=== PATIENT | male | born 1950 | race Caucasian/White ===

== ENCOUNTER → 2016-06-22 | Outpatient (CLI) | payer MEDICARE, MEDICAID ==
[~2016-06-22] MED LIST: ACET325T51 PO; ASPI81TA2 PO; ATOR40TA64 PO; BENZ-16 PO; BISM262O28 PO; CALC500T7 PO; DEXT15DR5 BOTH EYES; DIPH25CA84 PO; FAMO-137 PO; FERR325C PO; FLUT9.9S EA NOSTRIL; GLIP5TAB11 PO; GLUC1CAP25 PO; GLUC1KIT INJ; HYDR-4246 PO; INSU100I21 SQ; LABE100T PO; LIDO5JEL4 TOP; LORA10TA62 PO; LOSA25TA34 PO; MAG355OR19 PO; MAGN400O4 PO; METF500T4 PO; MICO10PO TOP; MULT-933 PO; NITR0.4T39 SL; OMEP20CA10 PO; ONDA-55 PO; OXYB5TAB PO; SERT50TA PO; TAMS0.4C47 PO; [UNRECOGNIZED DRUG - CODE] PO
== END ==
LOC: NWCC 10:19 → EDSTATUS 10:30
PROVIDERS: ATTEND Surgery
DX: T81.31XA Disruption of external operation (surgical) wound, not elsewhere classified, initial encounter (principal); Y83.8 Other surgical procedures as the cause of abnormal reaction of the patient, or of later complication, without mention of misadventure at the time of the procedure; F32.9 Major depressive disorder, single episode, unspecified
CPT/HCPCS: A6209; G0463

== ENCOUNTER → 2016-07-06 | Outpatient (CLI) | payer MEDICARE, MEDICAID | LOC: NWCC 09:50 → EDSTATUS 10:00 | PROVIDERS: ATTEND Surgery | DX: T81.31XA Disruption of external operation (surgical) wound, not elsewhere classified, initial encounter (principal); Y83.8 Other surgical procedures as the cause of abnormal reaction of the patient, or of later complication, without mention of misadventure at the time of the procedure; Z85.048 Personal history of other malignant neoplasm of rectum, rectosigmoid junction, and anus | CPT/HCPCS: A6209; A6210; G0463 ==

== ENCOUNTER → 2016-08-17 | Outpatient (CLI) | payer MEDICARE, MEDICAID ==
[~2016-08-17] MED LIST changes: +SALINE FLUSH 10ml SYRINGE IVF ONE
== END ==
LOC: NWCC 10:52 → EDSTATUS 11:00
PROVIDERS: ATTEND Surgery
DX: T81.31XA Disruption of external operation (surgical) wound, not elsewhere classified, initial encounter (principal); Y83.8 Other surgical procedures as the cause of abnormal reaction of the patient, or of later complication, without mention of misadventure at the time of the procedure; Z92.3 Personal history of irradiation; Z85.048 Personal history of other malignant neoplasm of rectum, rectosigmoid junction, and anus
CPT/HCPCS: A6209; G0463

== ENCOUNTER → 2016-09-14 | Outpatient (CLI) | payer MEDICARE | LOC: NWCC 11:05 | PROVIDERS: ATTEND Surgery | DX: T81.31XA Disruption of external operation (surgical) wound, not elsewhere classified, initial encounter (principal); Y83.8 Other surgical procedures as the cause of abnormal reaction of the patient, or of later complication, without mention of misadventure at the time of the procedure; Z85.048 Personal history of other malignant neoplasm of rectum, rectosigmoid junction, and anus; Z92.3 Personal history of irradiation ==

== ENCOUNTER → 2016-09-28 | Outpatient (CLI) | payer MEDICARE ==
[~2016-09-28] MED LIST changes: -SALINE FLUSH 10ml SYRINGE IVF ONE
== END ==
LOC: NWCC 10:28
PROVIDERS: ATTEND Surgery
DX: T81.31XA Disruption of external operation (surgical) wound, not elsewhere classified, initial encounter (principal); Y83.8 Other surgical procedures as the cause of abnormal reaction of the patient, or of later complication, without mention of misadventure at the time of the procedure; C20 Malignant neoplasm of rectum

== ENCOUNTER → 2016-10-12 | Outpatient (CLI) | payer MEDICARE | LOC: NWCC 13:29 | PROVIDERS: ATTEND Surgery | DX: T81.31XA Disruption of external operation (surgical) wound, not elsewhere classified, initial encounter (principal); Y83.8 Other surgical procedures as the cause of abnormal reaction of the patient, or of later complication, without mention of misadventure at the time of the procedure; Z85.048 Personal history of other malignant neoplasm of rectum, rectosigmoid junction, and anus ==

== ENCOUNTER 2017-10-01 13:47 | Inpatient (IN) ==
[2017-10-01] MEDS ORDERED: ONDANSETRON 4 MG/2 ML INJECTION IVP ONE (14:12)
[2017-10-01] MEDS ORDERED: MORPHINE SULFATE 4mg INJECTION IVP ONE (14:12)
[2017-10-01] MEDS ORDERED: NS 1,000 ML IV ONE (14:12)
--- NOTE | 2017-10-01 14:14 | Emergency Department Report ---
Abdominal Pain HPI - General Chief Complaint: Nausea/Vomiting/Diarrhea Stated Complaint: emesis on/off since 630am Time Seen by Provider: 10/01/17 14:12 Source: patient, EMS Mode of arrival: EMS Limitations: no limitations - History of Present Illness HPI narrative: Patient is a 67-year-old male, history of rectal cancer with colostomy. Patient presents to the ER for evaluation of emesis, abdominal distention. Patient was discharged yesterday after 3 days in [facility] for dehydration and possible UTI. [facility] was [facility], since arriving back in the [facility] patient's had multiple rounds of emesis is now having abdominal distention. Patient does have a colostomy which is only placing a clear liquid and mucus. Patient having what is described as feculent emesis at the [facility] so patient was referred to [facility] for further evaluation and treatment. On arrival patient is alert and oriented complaining of 9/10 abdominal pain. - Related Data Home Medications Medication Instructions Recorded Confirmed Atorvastatin Calcium 40 mg PO HS #0 09/18/15 10/01/17 Fluticasone Propionate [Flonase 2 spray EA NOSTRIL BID #0 09/18/15 10/01/17 Allergy Relief] Famotidine [Pepcid] 20 mg PO BID #0 03/24/16 10/01/17 Ferrous Sulfate [Iron] 325 mg PO BIDWM #0 03/24/16 10/01/17 Glucagon,Human Recombinant 1 mg INJ PRN PRN #0 03/24/16 10/01/17 [Glucagon Emergency Kit] Aspirin 81 mg PO DAILY 10/01/17 10/01/17 Benzonatate [Benzonatate] 100 mg PO TID PRN 10/01/17 10/01/17 CALCIUM CARBONATE Chewable [Tums] 1,000 mg PO Q4H PRN 10/01/17 10/01/17 Cetirizine [Zyrtec] 10 mg PO DAILY 10/01/17 10/01/17 Ciprofloxacin HCl [Cipro] 500 mg PO BID 10/01/17 10/01/17 Doxycycline Monohydrate 100 mg PO BID 10/01/17 10/01/17 Eucerin Cream [Eucerin] 1 applicatio TP DAILY 10/01/17 10/01/17 Hydrocodone/APAP 5/325 [[place] 1 tab PO Q5H PRN 10/01/17 10/01/17 5/325] Insulin Detemir [Levemir] 8 unit SQ HS 10/01/17 10/01/17 Mag Hydrox/Aluminum Hyd/Simeth 30 ml PO PRN PRN 10/01/17 10/01/17 [Alum-Mag Hydroxide-Simeth Liq] Magnesium 500 mg PO QID 10/01/17 10/01/17 Metformin [Glucophage] 500 mg PO BIDWM 10/01/17 10/01/17 Metoprolol Tartrate [Lopressor] 25 mg PO BIDWM 10/01/17 10/01/17 Mirtazapine [Remeron] 45 mg PO HS 10/01/17 10/01/17 Multivitamin [One Daily] 1 tab PO DAILY 10/01/17 10/01/17 Nystatin [Nystop] 1 applicatio TOP BID 10/01/17 10/01/17 Ondansetron HCl [Zofran] 4 mg PO Q6H PRN 10/01/17 10/01/17 Oxybutynin XL [Ditropan Xl] 5 mg PO HS 10/01/17 10/01/17 Sertraline [Zoloft] 100 mg PO DAILY 10/01/17 10/01/17 Tamsulosin [Flomax] 0.4 mg PO DAILY 10/01/17 10/01/17 Triamcinolone 0.1% Cream 15 G 1 applicatio TOP BID 10/01/17 10/01/17 [Kenalog] guaiFENesin [Mucinex] 600 mg PO BID PRN 10/01/17 10/01/17 Allergies Allergy/AdvReac Type Severity Reaction Status Date / Time Iodinated Contrast- Oral and Allergy Unknown Verified 10/01/17 14:00 IV Dye Review of Systems Constitutional: Reports: weakness. Denies: fever, chills ENT: Denies: ear pain, throat pain, dental pain Cardiovascular: Denies: chest pain, palpitations, dyspnea on exertion Respiratory: Denies: cough, dyspnea, wheezes Gastrointestinal: Reports: abdominal pain, nausea, vomiting Genitourinary: Denies: dysuria, frequency Neurological: Denies: headache, weakness Psychiatric: Denies: anxiety Endocrine: Denies: fatigue Hematological/Lymphatic: Denies: easy bleeding Allergic/Immunologic: Denies: facial swelling Physical Exam - General General appearance: alert - Neck Neck exam: Present: full ROM, trachea midline - Chest Chest inspection: Present: symmetric chest wall rise. Absent: tenderness - Respiratory Respiratory exam: Present: normal lung sounds bilaterally. Absent: respiratory distress, wheezes, stridor - Cardiovascular Cardiovascular exam: Present: regular rate, normal rhythm, normal heart sounds - Abdominal Exam Abdominal exam: Present: soft, distention, diminished bowel sounds, hypoactive bowel sounds. Absent: tenderness - Extremities Exam Extremities exam: Present: full ROM, tenderness - Back Exam Back exam: Present: full ROM, tenderness - Skin Skin exam: Present: warm, dry - Neurological Exam Neurological exam: Present: alert, oriented X3 - Psychiatric Psychiatric exam: Present: normal affect, normal mood Course Vital Signs Temperature 97.7 F 10/01/17 13:55 Pulse Rate 108 H 10/01/17 13:55 Respiratory Rate 28 H 10/01/17 13:55 Blood Pressure 111/83 10/01/17 13:55 Pulse Oximetry 94 10/01/17 13:55 Temperature 97.7 F 10/01/17 13:55 Pulse Rate 108 H 10/01/17 13:55 Respiratory Rate 28 H 10/01/17 13:55 Blood Pressure 111/83 10/01/17 13:55 Pulse Oximetry 94 10/01/17 13:55 Abdominal Pain - MDM Narrative Medical decision making narrative: Discuss case with Dr. Tate headache, he is aware of the results of the CT scan finding. NG tube, admit to hospitalist and he will follow-up he will also check in with Dr. Stanford. Discussed case with Dr. Wills, who is also her of the CT scan read she will admit consult in Dr. Tate at this time - Differential Diagnosis Differential diagnosis: Likely: small bowel obstruction - Medical Records Attestation: I reviewed the patient's medical records. - Lab Data Attestation: I reviewed the patient's lab results. Result diagrams: 10/01/17 14:31 10/01/17 14:31 - Radiology Data Attestation: I reviewed the patient's radiology results. Small bowel obstruction with transition point at the sacral region, does have seroma at the sacral region does not appear to be a perforation per [facility] radiologist Abdominal series: NG tube in good position Disposition Clinical Impression: Small bowel obstruction Disposition: 02 [place] [facility] [place] Condition: Stable Prescriptions: No Action Fluticasone Propionate [Flonase Allergy Relief] 2 spray EA NOSTRIL BID #0 Famotidine [Pepcid] 20 mg PO BID #0 Ferrous Sulfate [Iron] 325 mg PO BIDWM #0 Glucagon,Human Recombinant [Glucagon Emergency Kit] 1 mg INJ PRN PRN #0 PRN Reason: Prn Orders guaiFENesin [Mucinex] 600 mg PO BID PRN PRN Reason: Congestion Triamcinolone 0.1% Cream 15 G [Kenalog] 1 applicatio TOP BID Benzonatate [Benzonatate] 100 mg PO TID PRN PRN Reason: Cough Magnesium 500 mg PO QID Multivitamin [One Daily] 1 tab PO DAILY Oxybutynin XL [Ditropan Xl] 5 mg PO HS Mirtazapine [Remeron] 45 mg PO HS Hydrocodone/APAP 5/325 [[place] 5/325] 1 tab PO Q5H PRN PRN Reason: Pain Tamsulosin [Flomax] 0.4 mg PO DAILY Sertraline [Zoloft] 100 mg PO DAILY Nystatin [Nystop] 1 applicatio TOP BID Metoprolol Tartrate [Lopressor] 25 mg PO BIDWM Metformin [Glucophage] 500 mg PO BIDWM Ciprofloxacin HCl [Cipro] 500 mg PO BID Cetirizine [Zyrtec] 10 mg PO DAILY Aspirin 81 mg PO DAILY Ondansetron HCl [Zofran] 4 mg PO Q6H PRN PRN Reason: Nausea CALCIUM CARBONATE Chewable [Tums] 1,000 mg PO Q4H PRN PRN Reason: Indigestion Eucerin Cream [Eucerin] 1 applicatio TP DAILY Atorvastatin Calcium 40 mg PO HS #0 Mag Hydrox/Aluminum Hyd/Simeth [Alum-Mag Hydroxide-Simeth Liq] 30 ml PO PRN PRN PRN Reason: Indigestion Insulin Detemir [Levemir] 8 unit SQ HS Doxycycline Monohydrate 100 mg PO BID Referrals: Baudilio Rosa MD [Primary Care Provider] - Time of Disposition: 14:58 - Seen By: physician
[2017-10-01] MEDS: SALINE FLUSH 10ml SYRINGE IVF PRN (14:32)
--- NOTE | 2017-10-01 16:42 | History & Physical Report ---
History of Present Illness Date: 10/01/17 Chief complaint: N/v, abdominal pain HPI: Patient is a 67-year-old who presented to the emergency room from [facility] in [place] for vomiting fecal-like material and abdominal pain which started last evening. He has rectal cancer and has had robotic-assisted A/ P resection and colostomy by Dr. Stanford in 2015. Patient states he was in the hospital in [place] September 28- and was dismissed yesterday morning feeling okay. Abdominal pain and nausea and vomiting didn't start until later in the day. In talking with patient's PCP, patient was seen initially in the ER on September 26 with dizziness and other vague symptoms. UA was positive for UTI, although patient didn't have any urinary symptoms. He was started on Cipro. He returned to the clinic on the still not feeling well and complaining of vague symptoms including dizziness; he was thus hospitalized for IV fluids and further observation. He did complete the full course of Cipro for possible UTI. There were no significant events during his hospital stay. CT scan in the ER revealed high-grade small bowel obstruction. NG tube was placed with drainage of 850 cc's gastric fluid. By the time I saw the patient in his room on the surgical unit, he was completely pain-free and had no complaints. Dr. Tate was notified and agrees to consult. Review of Systems All systems PM: 10-point ROS was reviewed, no additional remarkable complaints except (nausea and vomiting and abdominal pain prior to arrival to ER. 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 Mother - living. Parkinsons. Family History: As Above - Social History Smoking status: Never smoker Substance use type: does not use Alcohol intake frequency: does not drink Housing: jail Current occupational status: disabled Social history: PCP- Baudilio Rosa Oncologist - Dr. Dueñas Surgeon - Dr. Stanford Medications Home Medications Medication Instructions Recorded Confirmed Type Atorvastatin Calcium 40 mg PO HS #0 09/18/15 10/01/17 History Fluticasone Propionate [Flonase 2 spray EA NOSTRIL BID #0 09/18/15 10/01/17 History Allergy Relief] Famotidine [Pepcid] 20 mg PO BID #0 03/24/16 10/01/17 History Ferrous Sulfate [Iron] 325 mg PO BIDWM #0 03/24/16 10/01/17 History Glucagon,Human Recombinant 1 mg INJ PRN PRN #0 03/24/16 10/01/17 History [Glucagon Emergency Kit] Aspirin 81 mg PO DAILY 10/01/17 10/01/17 History Benzonatate [Benzonatate] 100 mg PO TID PRN 10/01/17 10/01/17 History CALCIUM CARBONATE Chewable [Tums] 1,000 mg PO Q4H PRN 10/01/17 10/01/17 History Cetirizine [Zyrtec] 10 mg PO DAILY 10/01/17 10/01/17 History Ciprofloxacin HCl [Cipro] 500 mg PO BID 10/01/17 10/01/17 History Doxycycline Monohydrate 100 mg PO BID 10/01/17 10/01/17 History Eucerin Cream [Eucerin] 1 applicatio TP DAILY 10/01/17 10/01/17 History Hydrocodone/APAP 5/325 [[place] 1 tab PO Q5H PRN 10/01/17 10/01/17 History 5/325] Insulin Detemir [Levemir] 8 unit SQ HS 10/01/17 10/01/17 History Mag Hydrox/Aluminum Hyd/Simeth 30 ml PO PRN PRN 10/01/17 10/01/17 History [Alum-Mag Hydroxide-Simeth Liq] Magnesium 500 mg PO QID 10/01/17 10/01/17 History Metformin [Glucophage] 500 mg PO BIDWM 10/01/17 10/01/17 History Metoprolol Tartrate [Lopressor] 25 mg PO BIDWM 10/01/17 10/01/17 History Mirtazapine [Remeron] 45 mg PO HS 10/01/17 10/01/17 History Multivitamin [One Daily] 1 tab PO DAILY 10/01/17 10/01/17 History Nystatin [Nystop] 1 applicatio TOP BID 10/01/17 10/01/17 History Ondansetron HCl [Zofran] 4 mg PO Q6H PRN 10/01/17 10/01/17 History Oxybutynin XL [Ditropan Xl] 5 mg PO HS 10/01/17 10/01/17 History Sertraline [Zoloft] 100 mg PO DAILY 10/01/17 10/01/17 History Tamsulosin [Flomax] 0.4 mg PO DAILY 10/01/17 10/01/17 History Triamcinolone 0.1% Cream 15 G 1 applicatio TOP BID 10/01/17 10/01/17 History [Kenalog] guaiFENesin [Mucinex] 600 mg PO BID PRN 10/01/17 10/01/17 History Allergies Allergy/AdvReac Type Severity Reaction Status Date / Time Iodinated Contrast- Oral and Allergy Unknown Verified 10/01/17 14:00 IV Dye Exam Vital Signs: Temperature 97.3 F 10/01/17 16:11 Pulse Rate 101 H 10/01/17 16:11 Respiratory Rate 20 10/01/17 16:11 Blood Pressure 135/76 10/01/17 16:11 Pulse Oximetry 96 10/01/17 16:11 Height/Weight/BMI: Height 1.88 m Weight 91.2 kg Body Mass Index 25.8 - Constitutional Present: no acute distress, well nourished, well developed - Routine HEENT Exam Head: Present: normocephalic, atraumatic Eye: Present: EOMI, PERRL ENT: Present: mucous membranes moist, oropharynx clear - Routine Neck Exam Present: supple. Absent: lymphadenopathy, thyromegaly - Routine Respiratory Exam Present: CTA bilaterally. Absent: wheezes - Routine Cardiovascular Exam Present: RRR, no murmur - Routine Abdominal Exam Present: soft, distended. Absent: tenderness Comments: "tinkling" BS's heard in all 4 quadrants - least active in the RLQ - Routine Extremities Exam Present: no edema, normal capillary refill Comments: chronic skin changes from venous stasis - Routine Skin Exam Present: dry, warm - Routine Neurological Exam Present: alert, oriented X3, CN II-XII intact - Routine Psychiatric Exam Present: normal affect, cooperative Results - Labs CBC & Chem 7: 10/01/17 14:31 10/01/17 14:31 - Imaging and Cardiology CT scan - abdomen Additional comments: High-grade small bowel obstruction with transition level distal of the distal ileum possibly secondary to scarring at the presacral level. Fluid at the presacral level could represent seroma. Abdominal series: NG tube in good position Assessment and Plan (1) Small bowel obstruction Current visit: Yes Status: Acute Assessment and Plan: Assessment High-grade small bowel obstruction with transition level distal of the distal ileum possibly secondary to scarring at the presacral level. Dehydration-RLL 10/01/17 Recent hospitalization in [place] for vague symptoms - hypotension/dizziness and possible UTI (completed tx with Cipro) Rectal cancer (Dr. 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 UA pending. SCD's for DVT prophylaxis Code staus - full code Care to return to Dr. Rosa on dismissal. DVT Prophylaxis: SCD's GI Prophylaxis: Protonix Resuscitation Status: Full Code - Physician Narrative Physician: Trisha Wills MD Narrative: Date: 10/01/17 Time: 1804 I have independently evaluated and examined this patient. I reviewed the chart, the patient's history, and the GEOSPATIAL ENGINEER/PA's documented findings as above. We discussed and formulated the assessment and plan as above with additions as below: Mr. Avila was shortly after arriving on the surgical unit area he reportedly feels significantly better following placement of NG tube and that his abdomen is less distended. He confirmed that abdominal pain, nausea, vomiting, and abdominal distention developed acutely overnight in conjunction with decreased stool per the ostomy. His only complaint at time of my evaluation was dry mouth and request that he could get a sip or 2 of water. In additions to problems listed above the patient has a known history of peripheral vascular disease with occlusion of both anterior tibial arteries and high-grade stenosis of both posterior tibial arteries having previously undergone angioplasty of the left posterior tibial in November [address] Upton. He had a Port-A-Cath in the past which was removed in September 2015; and has a Chiari I malformation bypassed MRI. He is followed in the wound care clinic for chronic sacral wound following surgical dehiscence following AP resection for rectal carcinoma. On examination the patient is alert and cooperative. He appeared comfortable at time of my examination; respirations were nonlabored and the patient was able to take deep breaths without difficulty. Anterior breath sounds are clear. Abdomen is moderately distended, bowel sounds are absent and tympanic but the abdomen is soft. Sacral decubitus ulcer is approximately 3-4 cm in size and approximately 3 cm deep with granulation tissue present, there is no evidence of bowel loop in the ulcer. CT of the abdomen/pelvis reviewed by myself demonstrating multiple dilated loops of small bowel with air-fluid levels. Radiology reports transition point in the presacral area. High-grade small bowel obstruction; possibly due to prior radiation therapy. Discussed with Dr. Jamison who in turn discussed plans with Dr. Tate/Dr. Stanford. Conservative management with bowel rest, NG suction, IV fluids anticipated. Surgery may be needed if spontaneous resolution does not occur. Magnesium 1.2 today-replace IV and reassess in a.m. Hospital Course Summary Disclaimer: The visit summary below is not to be considered part of the above Progress Note. Hospital Course: 10/01/17 - Hospital admission Admit, observation for SBO NG tube placed in ER with drainage of 850cc's gastric fluid Morphine IV PRN pain, Zofran IV PRN nausea NPO, pantoprazole IV daily; replace magnesium Tele (had a brief run of PAT during recent hosp stay) Hold all home medications Surgical consult placed SCD's for DVT prophylaxis Code staus - full code Care to return to Dr. Rosa on dismissal.
[2017-10-01] MEDS ORDERED: ONDANSETRON 4 MG/2 ML INJECTION IVP PRN (17:04)
[2017-10-01] MEDS ORDERED: MORPHINE SULFATE 4mg INJECTION IVP PRN (17:04)
[2017-10-01] MEDS: PANTOPRAZOLE 40 MG INJECTION IVP SCH (17:54)
[2017-10-01] MEDS: NS 1,000 ML IV SCH (17:55)
[2017-10-01] MEDS: MAGNESIUM SULFATE 1gm PREMIX 1 GM/100 ML BAG IV SCH ×2 (19:21→20:30)
[2017-10-01] MEDS: MIRTAZAPINE 45 MG TABLET PO SCH (21:35)
[2017-10-01] MEDS: ATORVASTATIN 40 MG TABLET PO SCH (21:35)
[2017-10-02] MEDS: NS 1,000 ML IV SCH ×2 (03:48→10:10)
[2017-10-02] MEDS: FLUTICASONE NASAL SPRAY 50mcg EA NOSTRIL SCH ×3 (06:29→20:33)
[2017-10-02] MEDS: PANTOPRAZOLE 40 MG INJECTION IVP SCH (08:33)
--- NOTE | 2017-10-02 09:09 | XRay Report ---
Indication: NG tube placement PROCEDURE: XR abdomen 1V: Encounter: Initial Comparison: CT abdomen and pelvis from the same date Findings: Left basilar atelectasis. Nasogastric tube in place with tip projecting over the fundus of the stomach. Dilated colon is again seen in the upper abdomen. Impression: Findings as above. .
--- NOTE | 2017-10-02 09:14 | CT Scan Report ---
Indication: colon cancer, probable SBO, colostomy, IV contrast ALLERGY PROCEDURE: CT abdomen pelvis wo con: Encounter: Initial Comparison: None Technique: Axial CT images were performed through the abdomen and pelvis without intravenous contrast. Coronal and sagittal two-dimensional reformats. Automated Exposure Control and Iterative Reconstruction dose reducing techniques were utilized. Findings: Atelectasis and trace effusions and the lung bases. The unenhanced contours of the liver are grossly unremarkable. The spleen size is normal. Fatty replaced pancreas. The adrenal glands are normal. Small nonobstructing bilateral renal stones. Stones in the region of the left ureterovesicular junction on axial image #93 with additional stones in the posterior aspect of the bladder. Postsurgical changes in the rectal region with presacral soft tissue induration and thickening. Left lower quadrant end colostomy with a small peristomal hernia containing fluid. Markedly dilated small bowel seen throughout the abdomen with a transition to decompressed fecalized distal ileum seen in the central pelvis. Small bowel loops are dilated up to 7.5 cm in diameter. No free air appreciated. Stomach is distended with fluid and gas. Colon is normal caliber. Impression: 1. Severe distal small bowel obstruction with transition point in the pelvis. This could be due to adhesions from prior therapy for the patient's prior colon cancer. Surgical consultation is recommended. 2. Nephrolithiasis with possible nonobstructing right UVJ stones and bladder stones. 3. Trace pleural effusions. There is a preliminary report by [facility]. .
--- NOTE | 2017-10-02 09:31 | Progress Note ---
- Date 10/02/17 Subjective: Toan is seen today in follow up. He denies any concerns. States no N/V. He did have some sharp epigastric pain- it appears NGT has come dislodged and appears to have been backed out. (Suspect tip in esophagus). D/W JONATHAN Lees- she will check placement and advance if indicated. He denies any focal abdominal pain. Some small amounts of liquid stool in ostomy. He had questions about PO intake- we discussed today. No other acute c/ o reported. Chart is reviewed for collateral information. Objective Vital signs: Temperature 97.5 F 10/02/17 07:00 Pulse Rate 81 10/02/17 07:00 Respiratory Rate 14 10/02/17 07:00 Blood Pressure 111/67 10/02/17 07:00 Pulse Oximetry 93 10/02/17 07:00 Rhythm: Normal Sinus Rhythm Height/Weight/BMI: Height 1.88 m Weight 91.4 kg Body Mass Index 25.8 - Constitutional Present: no acute distress, average body habitus, cooperative - Routine HEENT Exam Head: Present: normocephalic, atraumatic Eye: Present: EOMI, PERRL ENT: Present: mucous membranes dry Comments: NGT right nare. Suspect dislodged. - Routine Respiratory Exam Present: decreased breath sounds, CTA bilaterally. Absent: rales, rhonchi, crackles - Routine Cardiovascular Exam Present: RRR, S1, S2, no murmur - Routine Abdominal Exam Present: soft (Abdomen is soft and diffusely non-tender), non tender, distended , ostomy (Small amount of liquid output.). Absent: normoactive bowel sounds ( Hypoactive BS x 4 quadrants), rebound, guarding, firm, rigid - Routine Extremities Exam Present: no edema, non tender - Routine Musculoskeletal Exam Musculoskeletal: Present: no clubbing or cyanosis, moving extremities well - Routine Skin Exam Present: intact, dry, warm - Routine Neurological Exam Present: alert, moving all extremities - Routine Psychiatric Exam Present: normal affect, cooperative Results - Labs CBC & Chem 7: 10/02/17 04:07 10/02/17 04:07 Assessment and Plan (1) Small bowel obstruction Current visit: Yes Status: Acute Assessment and Plan: Assessment High-grade small bowel obstruction with transition level distal of the distal ileum possibly secondary to scarring at the presacral level. Dehydration-RLL 10/01/17 Recent hospitalization in [place] for vague symptoms - hypotension/dizziness and possible UTI (completed tx with Cipro) Rectal cancer (Dr. 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 RN to confirm placement. Assess KUB once NGT advanced. Surgery consulted- high grade bowel obstruction. Continue IVF, will add potassium as it is trending down. Magnesium replaced, normalized. BG is controlled with insulin held. Recent PAT- on metoprolol succinate for rate control. Continue to monitor blood counts closely- neutropenia, mild anemia. Continue supportive care. Follow labs closely. Pain is minimal. DVT Prophylaxis: SCD's GI Prophylaxis: Protonix Resuscitation Status: Full Code - Physician Narrative Physician: Trisha Wills MD Narrative: Date: 10/02/17 Time: 1230 I have independently evaluated and examined this patient. I reviewed the chart, the patient's history, and the [employer]KER/PA's documented findings as above. We discussed and formulated the assessment and plan as above with additions as below: Toan was frustrated reporting that he can't have any liquids tomorrow. It's unclear who told him this and nursing was unsure where he got this impression is they've not been advised that he scheduled for surgery at this point. Beyond that he reports his abdomen feels better and that he's had no further nausea or vomiting; he denied dyspnea or generalized pain. Nursing reported no concerns and the patient was afebrile overnight. NAD, alert, abdomen is soft with decreased distention relative to yesterday, no tenderness, no bowel sounds appreciated Flat affect KUB reviewed-multiple dilated loops small bowel consistent with SBO; NG in stomach. Continue supportive care, Dr. Tate to see for Dr. Stanford today. If nonoperative management elected for several days will need to consider PICC line and TPN. Hospital Course Summary Disclaimer: The visit summary below is not to be considered part of the above Progress Note. Hospital Course: 10/01/17 - Hospital admission Admit, observation for SBO NG tube placed in ER with drainage of 850cc's gastric fluid Morphine IV PRN pain, Zofran IV PRN nausea NPO, pantoprazole IV daily; replace magnesium Tele (had a brief run of PAT during recent hosp stay) Hold all home medications Surgical consult placed SCD's for DVT prophylaxis Code staus - full code Care to return to Dr. Rosa on dismissal. Plan 10/02/17- Continue NGT. RN to confirm placement. Assess KUB once NGT advanced. Surgery consulted- high grade bowel obstruction. Continue IVF, will add potassium as it is trending down. Magnesium replaced, normalized. BG is controlled with insulin held. Recent PAT- on metoprolol succinate for rate control. Continue to monitor blood counts closely- neutropenia, mild anemia. Continue supportive care. Follow labs closely. Pain is minimal.
[2017-10-02] MEDS ORDERED: POTASSIUM CHLORIDE INJ 20 MEQ in NS 1,000 ML IV SCH (09:39)
--- NOTE | 2017-10-02 10:04 | XRay Report ---
Indication: SBO, NGT placement PROCEDURE: XR KUB: Encounter: Initial Comparison: October 01, 2017 Findings: Nasogastric tube appears stable in position. Severe small bowel dilatation is redemonstrated with small bowel loops measuring up to 7.5 cm in diameter. Scattered colonic gas is noted. Impression: Stable appearance of the nasogastric tube with continued evidence of a high-grade or complete small bowel obstruction. .
[2017-10-02] MEDS ORDERED: NS with KCL 20 mEq 1,000 ML IV SCH (10:15)
[2017-10-02] MEDS ORDERED: ACETAMINOPHEN 650 MG SUPPOSITORY PR PRN (14:30)
[2017-10-02] MEDS ORDERED: FALL RISK - PHARMACY CONSULT MC ONE (15:11)
--- NOTE | 2017-10-02 16:38 | General Surgery Consult Note ---
Consult date: 10/02/17 Attending Physician: Trisha Wills MD Reason for consult: other (sbo) [facility] Medical History (Last Updated 10/02/17 @ 16:44 by Dutch Tate MD) Chiari I malformation (Chronic) PVD (peripheral vascular disease) (Chronic) angioplasty L-post tibial artery 12/02; occlusion of B-ant tibial arteries Depression (Chronic) Mental retardation (Chronic) GERD (gastroesophageal reflux disease) (Chronic) Rectal cancer (Chronic) Oncologist: Dr. Dueñas S/P Neoadjuvant chemoradiation and robotic APR 01/12/2016 with positive resection margins. Hyperlipidemia (Chronic) Essential (primary) hypertension (Chronic) Diabetes mellitus type 2 with complications (Chronic) Surgical History: * Pilonidal cyst. * Left inguinal hernia repair - 1998. * Colonoscopy - 08/12/2015 with biopsy of rectal mass. * Port-a-cath placement - 09/19/2015. * Robotic assisted abdominoperineal resection with end colostomy formation - 01/12/[address] Stanford. * Delayed primary closure of perineal wound and application of wound VAC - 04/18/[address] Stanford. Family History: Family History (Last Updated 10/01/17 @ 17:06 by Trisha Wills MD) Father Stroke Mother Parkinson disease Family History Updates: Father - of stroke at age 59. Mother - living. Parkinsons. - Social History Smoking status: Never smoker Substance use type: does not use Alcohol intake frequency: does not drink Housing: long-term Current occupational status: disabled Medications Home Medications Medication Instructions Recorded Confirmed Type Atorvastatin Calcium 40 mg PO HS #0 09/18/15 10/01/17 History Fluticasone Propionate [Flonase 2 spray EA NOSTRIL BID #0 09/18/15 10/01/17 History Allergy Relief] Famotidine [Pepcid] 20 mg PO BID #0 03/24/16 10/01/17 History Ferrous Sulfate [Iron] 325 mg PO BIDWM #0 03/24/16 10/01/17 History Glucagon,Human Recombinant 1 mg INJ PRN PRN #0 03/24/16 10/01/17 History [Glucagon Emergency Kit] Aspirin 81 mg PO DAILY 10/01/17 10/01/17 History Benzonatate [Benzonatate] 100 mg PO TID PRN 10/01/17 10/01/17 History CALCIUM CARBONATE Chewable [Tums] 1,000 mg PO Q4H PRN 10/01/17 10/01/17 History Cetirizine [Zyrtec] 10 mg PO DAILY 10/01/17 10/01/17 History Ciprofloxacin HCl [Cipro] 500 mg PO BID 10/01/17 10/01/17 History Doxycycline Monohydrate 100 mg PO BID 10/01/17 10/01/17 History Eucerin Cream [Eucerin] 1 applicatio TP DAILY 10/01/17 10/01/17 History Hydrocodone/APAP 5/325 [[place] 1 tab PO Q5H PRN 10/01/17 10/01/17 History 5/325] Insulin Detemir [Levemir] 8 unit SQ HS 10/01/17 10/01/17 History Mag Hydrox/Aluminum Hyd/Simeth 30 ml PO PRN PRN 10/01/17 10/01/17 History [Alum-Mag Hydroxide-Simeth Liq] Magnesium 500 mg PO QID 10/01/17 10/01/17 History Metformin [Glucophage] 500 mg PO BIDWM 10/01/17 10/01/17 History Metoprolol Tartrate [Lopressor] 25 mg PO BIDWM 10/01/17 10/01/17 History Mirtazapine [Remeron] 45 mg PO HS 10/01/17 10/01/17 History Multivitamin [One Daily] 1 tab PO DAILY 10/01/17 10/01/17 History Nystatin [Nystop] 1 applicatio TOP BID 10/01/17 10/01/17 History Ondansetron HCl [Zofran] 4 mg PO Q6H PRN 10/01/17 10/01/17 History Oxybutynin XL [Ditropan Xl] 5 mg PO HS 10/01/17 10/01/17 History Sertraline [Zoloft] 100 mg PO DAILY 10/01/17 10/01/17 History Tamsulosin [Flomax] 0.4 mg PO DAILY 10/01/17 10/01/17 History Triamcinolone 0.1% Cream 15 G 1 applicatio TOP BID 10/01/17 10/01/17 History [Kenalog] guaiFENesin [Mucinex] 600 mg PO BID PRN 10/01/17 10/01/17 History Allergies Allergy/AdvReac Type Severity Reaction Status Date / Time Iodinated Contrast- Oral and Allergy Unknown Verified 10/01/17 14:00 IV Dye Review of Systems 10-point ROS: negative except for HPI and the following: - Gastrointestinal Gastrointestinal: Present: other (decreased ostomy output) - Psychiatric Psychiatric: Present: other (mild mental retardation) - Endocrine Endocrine: Present: diabetes - Vital Signs Last Vital Signs Temp 99.5 F 10/02/17 14:19 Pulse 89 10/02/17 14:19 Resp 16 10/02/17 14:19 BP 104/64 10/02/17 14:19 Pulse Ox 91 10/02/17 14:19 - Laboratory Result Diagrams: 10/02/17 04:07 10/02/17 04:07
[2017-10-02] MEDS: POTASSIUM CHLORIDE INJ 20 MEQ in D5NS 1,000 ML IV SCH (18:25)
[2017-10-02] MEDS: MIRTAZAPINE 45 MG TABLET PO SCH (20:33)
[2017-10-02] MEDS: ATORVASTATIN 40 MG TABLET PO SCH (20:33)
[2017-10-03] MEDS: POTASSIUM CHLORIDE INJ 20 MEQ in D5NS 1,000 ML IV SCH ×3 (03:13→20:34)
--- NOTE | 2017-10-03 08:12 | Consultation ---
DATE OF CONSULTATION 10/02/2017 CONSULTING PHYSICIAN Dutch Tate MD (Covering for Dr. Stanford) REQUESTING PHYSICIAN Dr. Wills REASON FOR CONSULTATION Small bowel obstruction. IMPRESSION 1. High-grade small bowel obstruction with transition point deep within the pelvis. There may be a chronic component to his bowel obstruction given the significant dilatation of the small bowel without significant abdominal pain. He may also have a cause of his bowel obstruction related to local recurrence of his rectal cancer as opposed to simple adhesions. 2. Personal history of rectal cancer status post abdominoperineal resection with positive margins in 2016. 3. Type 2 diabetes mellitus. 4. Chronic buttock wound - followed by Dr. Stanford [facility]. 5. Hypertension. 6. Hyperlipidemia. 7. Neutropenia. RECOMMENDATIONS 1. I did discuss the case with Dr. Stanford given his prior knowledge of the patient. It was felt that the patient was stable for observation through the weekend with NG tube decompression and further evaluation of management options tomorrow. 2. The patient could have TPN via his PICC line. 3. Allow minimal clear liquids with an ounce per hour of fluids. HISTORY OF PRESENT ILLNESS Toan is a 67-year-old male patient of Dr. Stanford who had a robotic abdominoperineal resection on 01/12/2016 for rectal cancer. He had trouble with his perineal wound and delayed closure on 04/18/2016. He has continued to have trouble with a buttock wound and was last seen by Dr. Stanford on 2017 in the [facility]. Toan was hospitalized in [place] from 09/28/2017 through 09/30/2017. He was dismissed on the morning of 09/30/2017 after treatment for a urinary tract infection. He was back at [facility]. That evening he developed sudden onset of abdominal bloating and vomiting. When he did not improve he was taken to the emergency department on 10/01/2017 at [facility]. He was having abdominal pain that he rated 9-10 out of 10 in severity. He was feeling rather bloated. In the emergency department he had a CT scan the abdomen and pelvis performed that showed high-grade small bowel obstruction with an apparent transition point in the presacral region deep within the pelvis. An NG tube was placed and had 850 ml out promptly. He was admitted under the hospitalist service and surgery was consulted. With NG tube decompression and bowel rest the patient says that his abdominal pain has decreased to 1-3 out of 10 in severity. He denies any current abdominal pain and denies nausea and vomiting. He does report feeling hungry and thirsty. He has had some solid ostomy output today. He was having decreased ostomy output prior to admission with his bloating and minimal mucousy output in his colostomy bag. PAST MEDICAL HISTORY, PAST SURGICAL HISTORY, ALLERGIES, MEDICATIONS, SOCIAL HISTORY, FAMILY HISTORY, REVIEW OF SYSTEMS, LABORATORY DATA, VITAL SIGNS: See electronic consultation note. PHYSICAL EXAMINATION GENERAL: The patient is awake and alert. He is in no acute distress. HEENT: Sclerae clear. Extraocular muscles intact. NECK: Supple with a midline trachea. No lymphadenopathy or thyromegaly are noted. HEART: Regular rate and rhythm. LUNGS: Clear to auscultation bilaterally. ABDOMEN: Soft, nontender. There is no significant abdominal distention. No masses, fluid, organomegaly, guarding or rebound are noted. His ostomy has a mixture of liquid and solid stool in his ostomy bag. EXTREMITIES: No clubbing , cyanosis or edema. NEURO: Cranial nerves II-XII are grossly intact. PSYCHIATRIC: Normal mood and affect. SKIN: There is a bandage in the midline of the posterior perineum and buttock region. Bandage was left in position. IMAGING CT scan of the abdomen and pelvis was personally reviewed by me. There does appear to be a transition point in the lower pelvis with some surrounding thickening of the pelvic sidewalls. The small bowel is essentially all dilated up to the dilated stomach at the time of the scan. The colon is fairly well decompressed but does contain stool. MTDD
[2017-10-03] MEDS: FLUTICASONE NASAL SPRAY 50mcg EA NOSTRIL SCH ×2 (08:30→20:34)
[2017-10-03] MEDS: EUCERIN CREAM 57gm TP SCH (08:33)
[2017-10-03] MEDS: PANTOPRAZOLE 40 MG INJECTION IVP SCH (08:37)
[2017-10-03] MEDS ORDERED: DIATRIZOATE MEGLUMINE/SOD. (66%/10%) 120ml SOLN ONE (10:20)
[2017-10-03] MEDS ORDERED: METHYLPREDNISOLONE SOD SUCC 125mg/2ml INJECTION IVP SCH (10:45)
[2017-10-03] MEDS: DiphenhydrAMINE 50 MG/ML INJECTION IVP SCH (10:52)
--- NOTE | 2017-10-03 10:54 | Progress Note ---
- Date 10/03/17 Subjective: Toan feels good, and is ready to eat. He still has the NGT in place and the suction canister is full from overnight shift. He had a large bowel movement this morning. He denies any nausea or abdominal pain. He denies SOA or dizziness. Objective Vital signs: Temperature 97.5 F 10/03/17 07:59 Pulse Rate 65 10/03/17 07:59 Respiratory Rate 18 10/03/17 07:59 Blood Pressure 109/71 10/03/17 07:59 Pulse Oximetry 93 10/03/17 07:59 Rhythm: Normal Sinus Rhythm Height/Weight/BMI: Height 1.88 m Weight 92.2 kg Body Mass Index 25.8 - Constitutional Present: no acute distress, well nourished, well developed, thin - Routine HEENT Exam Head: Present: normocephalic Eye: Present: PERRL. Absent: conjunctival icterus, scleral injection ENT: Present: oropharynx clear. Absent: nares patent (NGT right nare) - Routine Respiratory Exam Present: CTA bilaterally - Routine Cardiovascular Exam Present: RRR, S1, S2 - Routine Abdominal Exam Present: soft, non tender, distended (mild). Absent: normoactive bowel sounds ( hypoactive) - Routine Extremities Exam Present: no edema, pulses intact - Routine Musculoskeletal Exam Musculoskeletal: Present: no clubbing or cyanosis - Routine Skin Exam Present: intact, dry, warm - Routine Neurological Exam Present: alert, oriented X3, normal speech - Routine Psychiatric Exam Present: normal affect, normal thought process, cooperative Results - Labs CBC & Chem 7: 10/03/17 04:03 10/03/17 04:03 Assessment and Plan (1) Small bowel obstruction Current visit: Yes Status: Acute Assessment and Plan: Assessment High-grade small bowel obstruction with transition level distal of the distal ileum possibly secondary to scarring at the presacral level. Dehydration-RLL 10/01/17 Recent hospitalization in [place] for vague symptoms - hypotension/dizziness and possible UTI (completed tx with Cipro) Rectal cancer (Dr. 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 Continues to have fairly large amount of gastric drainage, but he had large BM this morning. Awaiting Dr. Stanford's recommendations -- anticipate conservative management. WBC up to 4.3. Hgb decreased to 10.3, but suspect this drop is heavily dilutional. K is still 3.5 - continue IVF with KCl. Mg decreased to 1.5 and IV bolus has been ordered. Discussed with RN and Dr. Wills. DVT Prophylaxis: SCD's GI Prophylaxis: Protonix Resuscitation Status: Full Code - Physician Narrative Physician: Trisha Wills MD Narrative: Date: 10/03/17 Time: 1630 I have independently evaluated and examined this patient. I reviewed the chart, the patient's history, and the POLICY INTERN/PA's documented findings as above. We discussed and formulated the assessment and plan as above with additions as below: Toan reports increased bowel activity overnight with fecal output requiring that his ostomy bag be changed; he is hungry and reports no nausea or abdominal pain. NAD, abdomen soft, nontender, bowel sounds are present although somewhat diminished. Laboratory data as noted above-albumin/magnesium both depressed today. Small bowel follow-through study reviewed by myself sequentially through the day -good progression of contrast through the bowel but report not yet finalized. Anticipate diet being advanced after surgery has a chance to review films. Discussed with surgery earlier today. Hospital Course Summary Disclaimer: The visit summary below is not to be considered part of the above Progress Note. Hospital Course: 10/01/17 - Hospital admission Admit, observation for SBO NG tube placed in ER with drainage of 850cc's gastric fluid Morphine IV PRN pain, Zofran IV PRN nausea NPO, pantoprazole IV daily; replace magnesium Tele (had a brief run of PAT during recent hosp stay) Hold all home medications Surgical consult placed SCD's for DVT prophylaxis Code staus - full code Care to return to Dr. Rosa on dismissal. Plan 10/02/17- Continue NGT. RN to confirm placement. Assess KUB once NGT advanced. Surgery consulted- high grade bowel obstruction. Continue IVF, will add potassium as it is trending down. Magnesium replaced, normalized. BG is controlled with insulin held. Recent PAT- on metoprolol succinate for rate control. Continue to monitor blood counts closely- neutropenia, mild anemia. Continue supportive care. Follow labs closely. Pain is minimal. 10/03/17- Continue NGT/NPO. Continues to have fairly large amount of gastric drainage, but he had large BM this morning. Awaiting Dr. Stanford's recommendations -- anticipate conservative management. WBC up to 4.3. Hgb decreased to 10.3, but suspect this drop is heavily dilutional. K is still 3.5 - continue IVF with KCl. Mg decreased to 1.5 and IV bolus has been ordered.
[2017-10-03] MEDS: MAGNESIUM SULFATE 1gm PREMIX 1 GM/100 ML BAG IV SCH ×2 (11:37→12:40)
--- NOTE | 2017-10-03 14:02 | Wound Care Progress Note ---
Wound Center Progress Note: Pt is known to the wound clinic, at this time dressing removed and ulcer irrigated with NS. At this time Maxabsorb placed in open ulcer then covered with ABD. Pt asking for a drink however, pt NPO for bowl study. Dressing will need to be changed , if pt still in hospital.
--- NOTE | 2017-10-03 15:30 | Progress Note ---
DATE 10/03/2017 FINDINGS Mr. Avila is a 67-year-old gentleman who is known to my surgical practice. He did present over the weekend with a component of abdominal pain and radiographic evidence for high-grade small bowel obstruction. He has been being managed conservatively over the weekend with NG suction, IV fluids. Upon entering the room earlier today, Toan denied abdominal pain. He states that the nurses had recently just emptied his bag and that there was some stool present within his colostomy bag this morning. Toan however, also informed me that he had been hospitalized at [facility] for several weeks as a result of abdominal issues. I did contact Dr. Rosa, his primary care physician, who informed me that Toan had been admitted for 1-2 days for some vague symptoms such as dizziness. He was not experiencing any component of abdominal pain upon his prior admission to [facility]. OBJECTIVE VITALS: Afebrile. Normotensive. Current vitals include temperature 97.5, pulse 65, respirations 18, blood pressure 109/71, SaO2 93% room air. HEENT: Normocephalic. Pupils are equally round and react to light and accommodation. CHEST: Clear to auscultation bilaterally. HEART: Regular rate and rhythm. Normal S1, S2, without gallops, murmurs or clicks. ABDOMEN: Visualization of the abdomen reveals no air or stool to be present within the colostomy this morning. Abdomen does not appear to be severely distended, however, upon visualization. Palpation of the abdomen reveals it to be soft and nontender with no evidence for guarding or rebound. Auscultation of the abdomen revealed high-pitched bowel sounds/borborygmi. LABORATORY/RADIOGRAPHIC EVALUATION The patient had a CBC today and his white count is 4.3. Hemoglobin is 10.3. CMP was obtained and found to be without marked abnormalities. Potassium was slightly low at 3.5. Albumin was low 1.9. Radiographically, the patient had a CT scan obtained over the weekend as well as plain films yesterday. He was found to have massively dilated small bowel. I did order a Gastrografin small bowel follow-through today and it does appear to be progressing very slowly. Results of this Gastrografin small bowel follow-through are pending at the time of dictation. ASSESSMENT 67-year-old gentleman status post abdominoperineal resection secondary to invasive rectal cancer. Patient with known history for local recurrence. Patient likely with complete small bowel obstruction. PLAN Will contact his sister who does help make some medical decisions for Toan as a result of his decreased IQ. It is my intuition that Toan does indeed have a complete small bowel obstruction that will likely not resolve without surgical intervention. We will await his small bowel follow-through results and proceed accordingly. It is my plan that likely this evening if his sister wishes to proceed with surgical intervention, that we will likely be proceeding with exploratory laparotomy and lysis of adhesions as a result of his complete small bowel obstruction. SARA
--- NOTE | 2017-10-03 16:52 | XRay Report ---
EXAM: XR small bowel follow through LOCATION OF DICTATION: [place] HISTORY: possible SBO COMPARISON: No prior studies available for comparison. TECHNIQUE: The patient was premedicated with 50 mg Benadryl and 125 mg of Solu-Medrol prior to the exam due to iodine allergy. Gastrografin was injected through the nasoenteric catheter. FINDINGS: Several overhead abdominal x-rays were obtained over a 4.5 hour period. There is delayed passage of contrast through the small bowel loops which are dilated. The contrast eventually extends into the colonic bowel loops within the right abdomen at the 3.5 hour interval and appears to extend to the distal descending colon at the 4.5 hour interval. The findings may be secondary to ileus or partial small bowel obstruction. Continued close interval follow-up is recommended. Impression Delayed transit of oral contrast the small bowel loops eventually reaching the colon at the 3.5 to 4.5 hour interval. Significantly dilated small bowel loops are again demonstrated. Differential considerations include partial small bowel obstruction versus generalized ileus and continued close follow-up is recommended. .
--- NOTE | 2017-10-03 18:02 | Progress Note ---
DATE OF SERVICE 10/03/2017 FINDINGS Toan this evening was without complaints. He states that he was "hungry and thirsty." Denied abdominal pain. EXAM VITAL SIGNS: Afebrile, normotensive. ABDOMEN: Soft, nontender. No output is still noted within his colostomy. LABORATORY/RADIOGRAPHIC EVALUATION I did review the patient's small-bowel series and it does appear that contrast has progressed into his colon, ruling out a complete small-bowel obstruction. ASSESSMENT 67-year-old gentleman with probable high-grade small-bowel obstruction. Patient clinically doing well. PLAN Given the fact that contrast has progressed into his colon, it was my recommendation that we not proceed with surgical intervention despite his marked small-bowel distention noted radiographically. Will go ahead and leave NG clamped and begin the patient on clear liquids. Will repeat KUB and upright tomorrow and continue to follow with serial abdominal examinations/from a clinical standpoint. SARA
[2017-10-03] MEDS: ATORVASTATIN 40 MG TABLET PO SCH (20:33)
[2017-10-03] MEDS: MIRTAZAPINE 45 MG TABLET PO SCH (20:33)
[2017-10-04] MEDS: INSULIN ASPART 100unit/ml INJECTION SQ PRN (00:08)
--- NOTE | 2017-10-04 08:34 | General Surgery Progress Note ---
Subjective Patient reports: feels better, bowel movement (large yesterday and copious about 5 am per patient.) Narrative: Denies abd pain, nausea. Would like breakfast. - Vital Signs Last Vital Signs Temp 97.6 F 10/04/17 07:00 Pulse 51 L 10/04/17 07:00 Resp 16 10/04/17 07:00 BP 111/69 10/04/17 07:00 Pulse Ox 98 10/04/17 07:00 - Laboratory Result Diagrams: 10/04/17 04:01 10/04/17 04:01 - Radiology KUB today shows contrast in colon, report pending - Abnormal Exam Abdominal: obese - Normal Exam General: awake, alert, oriented, no acute distress Cardiovascular: regular rate Respiratory: clear bilaterally, no labored breathing Abdominal: soft, non-tender, other (Colostomy bag with soft stool in it. Placed NG to suction briefly with minimal output, not even enough to fill the NG suction tubing.) Psychiatric: normal affect Neurological: CN 2-12 grossly intact Assessment and Plan (1) Small bowel obstruction Current Visit: Yes Status: Acute (2) Diabetes mellitus type 2 with complications Current Visit: Yes Status: Chronic (3) Essential (primary) hypertension Current Visit: Yes Status: Chronic (4) GERD (gastroesophageal reflux disease) Current Visit: Yes Status: Chronic (5) Rectal cancer Current Visit: Yes Status: Chronic Problem details: Oncologist: Dr. Dueñas S/P Neoadjuvant chemoradiation and robotic APR 01/12/2016 with positive resection margins. (6) H/O resection of rectum Current Visit: Yes Status: Chronic Plan: Had large and copious results from Gastrografin small bowel follow through, abd soft, non-tender, denies nausea. Will discuss with Dr. Stanford. Dr. Stanford ordered DC NG and start full liquids. Hospital Course Summary Disclaimer: The visit summary below is not to be considered part of the above Progress Note. Hospital Course: 10/01/17 - Hospital admission Admit, observation for SBO NG tube placed in ER with drainage of 850cc's gastric fluid Morphine IV PRN pain, Zofran IV PRN nausea NPO, pantoprazole IV daily; replace magnesium Tele (had a brief run of PAT during recent hosp stay) Hold all home medications Surgical consult placed SCD's for DVT prophylaxis Code staus - full code Care to return to Dr. Rosa on dismissal. Plan 10/02/17- Continue NGT. RN to confirm placement. Assess KUB once NGT advanced. Surgery consulted- high grade bowel obstruction. Continue IVF, will add potassium as it is trending down. Magnesium replaced, normalized. BG is controlled with insulin held. Recent PAT- on metoprolol succinate for rate control. Continue to monitor blood counts closely- neutropenia, mild anemia. Continue supportive care. Follow labs closely. Pain is minimal. 10/03/17- Continue NGT/NPO. Continues to have fairly large amount of gastric drainage, but he had large BM this morning. Awaiting Dr. Stanford's recommendations -- anticipate conservative management. WBC up to 4.3. Hgb decreased to 10.3, but suspect this drop is heavily dilutional. K is still 3.5 - continue IVF with KCl. Mg decreased to 1.5 and IV bolus has been ordered. 10/04 Had large and copious results from Gastrografin small bowel follow through, abd soft, non-tender, denies nausea. Will discuss with Dr. Stanford.
--- NOTE | 2017-10-04 09:44 | XRay Report ---
Indication: high grade small bowel obstruction PROCEDURE: XR abdomen 2V: Encounter: Initial Comparison: October 03, 2017 Findings: Nasogastric tube remains in place. Continued dilatation of multiple small bowel loops with air-fluid levels. There is residual contrast material in the colon from the patient's recent small bowel follow-through. Differential air-fluid levels remain in the small bowel. The overall degree of bowel distention is not significantly changed. Impression: Continued evidence of a high-grade partial small bowel obstruction. .
[2017-10-04] MEDS: PANTOPRAZOLE 40 MG INJECTION IVP SCH (09:45)
[2017-10-04] MEDS: FLUTICASONE NASAL SPRAY 50mcg EA NOSTRIL SCH ×2 (09:46→20:10)
[2017-10-04] MEDS: DiphenhydrAMINE 50 MG/ML INJECTION IVP SCH (09:46)
[2017-10-04] MEDS: EUCERIN CREAM 57gm TP SCH (09:47)
--- NOTE | 2017-10-04 11:19 | Progress Note ---
- Date 10/04/17 Subjective: Patient is a 67-year-old who presented to the emergency room from [facility] in [place] for vomiting fecal-like material and abdominal pain which started 09/30/17. He has rectal cancer and has had robotic-assisted A/P resection and colostomy by Dr. Stanford in 2016. Patient states he was in the hospital in [place] September 28- and was dismissed 09/30/17 AM feeling okay. Abdominal pain and nausea and vomiting didn't start until later in the day. In talking with patient's PCP, patient was seen initially in the ER on September 26 with dizziness and other vague symptoms. UA was positive for UTI, although patient didn't have any urinary symptoms. He was started on Cipro. He returned to the clinic on the still not feeling well and complaining of vague symptoms including dizziness; he was thus hospitalized for IV fluids and further observation. He did complete the full course of Cipro for possible UTI. There were no significant events during his hospital stay. CT scan in the ER revealed high-grade small bowel obstruction. NG tube was placed with drainage of 850 cc's gastric fluid. By the time I saw the patient in his room on the surgical unit, he was completely pain-free and had no complaints. Dr. Tate was notified and agrees to consult. On 10/03/17, he underwent an upper GI and small bowel follow through which showed : Delayed transit of oral contrast the small bowel loops eventually reaching the colon at the 3.5 to 4.5 hour interval. Significantly dilated small bowel loops are again demonstrated. Differential considerations include partial small bowel obstruction versus generalized ileus and continued close follow-up is recommended. Dr. Stanford took over on the , after the small bowel follow through and recommended not to proceed with surgical intervention despite his marked small-bowel distention noted radiographically. Will go ahead and leave NG clamped and begin the patient on clear liquids. Will repeat KUB and upright tomorrow and continue to follow with serial abdominal examinations/from a clinical standpoint. Today, he is tolerating clear liquids. He had a large BM this am. He denies abdominal pain. He would like to advance to regular diet. If he tolerates reg diet he could probably go home. Will discuss with surgery if he can advance and if reglan po would benefit him for his slow transit. He denies fevers, chills, cough or sputum. No chest pain, pressure or tightness. He denies palpitations. He denies any abdominal pain. He denies nausea. He denies any genitourinary symptoms. Objective Vital signs: Temperature 97.6 F 10/04/17 07:00 Pulse Rate 51 L 10/04/17 07:00 Respiratory Rate 16 10/04/17 07:00 Blood Pressure 111/69 10/04/17 07:00 Pulse Oximetry 98 10/04/17 07:00 Rhythm: Normal Sinus Rhythm Height/Weight/BMI: Height 1.88 m Weight 94 kg Body Mass Index 25.8 Comments: Gen: alert and oriented. NAD Skin: warm and dry HEENT: NC/AT PERRL, EOMI, Sclera, lids and conjunctiva wnl. MMM. OP clear. Neck: No JVD, Carotids 2+ without bruits Lungs: clear. No rales, rhonchi or wheezes CV: regular. No murmur, rub or gallop Abd: soft. +BS. NT/ND MS: No edema. Good strength and ROM Neuro: No focal deficits Psy: Appropriate mood and affect Results - Labs CBC & Chem 7: 10/04/17 04:01 10/04/17 04:01 Assessment and Plan (1) Small bowel obstruction Current visit: Yes Status: Acute Assessment and Plan: Assessment/Plan: High-grade small bowel obstruction with transition level distal of the distal ileum possibly secondary to scarring at the presacral level. -Surgery consulted. No plan for surgery at this time. KUB still shows dilated loops of small bowel. -+stool output -Tolerating fluids, Will see if okay to advance to regular diet. -Slow transit, will start po reglan Dehydration-RLL 10/01/17 -resolved. Recent hospitalization in [place] for vague symptoms - hypotension/dizziness and possible UTI (completed tx with Cipro) Rectal cancer -Dr. Dueñas - currently on q 2wk chemo, palliative Type 2 diabetes -Resume metformin -once eating regular diet will resume lantus as well. 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 Neutropenia -stable Hypomagnesemia -Resume po mag supplements Groin yeast -Nystatin Prophylaxis -PPI and SCDs. -Ambulating. GI Prophylaxis: Protonix Resuscitation Status: Full Code - Physician Narrative Narrative: Date: 10/04/17 Time: 1116 Hospital Course Summary Disclaimer: The visit summary below is not to be considered part of the above Progress Note. Hospital Course: 10/01/17 - Hospital admission Admit, observation for SBO NG tube placed in ER with drainage of 850cc's gastric fluid Morphine IV PRN pain, Zofran IV PRN nausea NPO, pantoprazole IV daily; replace magnesium Tele (had a brief run of PAT during recent hosp stay) Hold all home medications Surgical consult placed SCD's for DVT prophylaxis Code staus - full code Care to return to Dr. Rosa on dismissal. Plan 10/02/17- Continue NGT. RN to confirm placement. Assess KUB once NGT advanced. Surgery consulted- high grade bowel obstruction. Continue IVF, will add potassium as it is trending down. Magnesium replaced, normalized. BG is controlled with insulin held. Recent PAT- on metoprolol succinate for rate control. Continue to monitor blood counts closely- neutropenia, mild anemia. Continue supportive care. Follow labs closely. Pain is minimal. 10/03/17- Continue NGT/NPO. Continues to have fairly large amount of gastric drainage, but he had large BM this morning. Awaiting Dr. Stanford's recommendations -- anticipate conservative management. WBC up to 4.3. Hgb decreased to 10.3, but suspect this drop is heavily dilutional. K is still 3.5 - continue IVF with KCl. Mg decreased to 1.5 and IV bolus has been ordered. 10/04 Had large and copious results from Gastrografin small bowel follow through, abd soft, non-tender, denies nausea. Will discuss with Dr. Stanford.
[2017-10-04] MEDS ORDERED: BENZONATATE 100 MG CAPSULE PO PRN (12:37)
[2017-10-04] MEDS ORDERED: GUAIFENESIN LA 600 MG TABLET PO PRN (12:37)
[2017-10-04] MEDS: ASPIRIN 81 MG CHEWABLE TABLET PO SCH (12:51)
[2017-10-04] MEDS: MAGNESIUM OXIDE 400 MG TABLET PO SCH ×3 (13:50→20:09)
--- NOTE | 2017-10-04 16:10 | Progress Note ---
DATE 10/04/2017 FINDINGS Mr. Avila was seen earlier this morning on rounds. He denied abdominal pain. He states that he had a large bowel movement and that his colostomy appliance had "had an accident". OBJECTIVE VITALS: Afebrile. Normotensive. CHEST: Clear to auscultation bilaterally. HEART: Regular rate and rhythm. Normal S1, S2, without gallops, murmurs or clicks. ABDOMEN: Soft, completely nontender. Fair amount of liquidy stool present within colostomy. LABORATORY/RADIOGRAPHIC EVALUATION The patient had a CBC today that is unremarkable. Hemoglobin is 10.5. BMP obtained and found to be without marked abnormalities. Radiographically, the patient did undergo a KUB and upright today. He continues to have significant small bowel distention throughout the abdomen. There is contrast however throughout the entire colon. Final impression was continued evidence of a high-grade partial small bowel obstruction. Overall degree of bowel distention has not significantly changed. ASSESSMENT 67-year-old gentleman with personal history for rectal cancer, status post APR followed by radiation. Patient with known evidence of local recurrence. Patient with likely high-grade small bowel obstruction. PLAN From a clinical standpoint, the patient appears to be doing significantly better than from a radiographic standpoint. He continues to have marked dilatation of the small bowel. He has had however excellent output through his colostomy. I would like to try to avoid surgery on this patient although it is my clinical intuition that he will ultimately need surgical intervention given the degree of small bowel distention noted radiographically. Nonetheless, we will go ahead and begin the patient on some full liquids today. Will then slowly advance to a regular diet. Will continue to follow the patient with serial abdominal examinations and repeat radiographs. If the patient continues to improve from a clinical standpoint with no onset of recurrent abdominal pain , nausea or vomiting and continues with good output through colostomy, will likely follow the patient more from a clinical standpoint than that of radiographic standpoint. I am however concerned in regards to his marked small bowel dilatation noted on radiographic evaluation. SARA
[2017-10-04] MEDS: METOCLOPRAMIDE 5mg TABLET PO SCH ×2 (17:21→20:09)
[2017-10-04] MEDS: METFORMIN 500 MG TABLET PO SCH (17:32)
[2017-10-04] MEDS: TAMSULOSIN 0.4 MG CAPSULE PO SCH (20:07)
[2017-10-04] MEDS: MIRTAZAPINE 45 MG TABLET PO SCH (20:08)
[2017-10-04] MEDS: FERROUS SULFATE 324 MG TABLET PO SCH (20:08)
[2017-10-04] MEDS: CIPROFLOXACIN 500 MG TABLET PO SCH (20:08)
[2017-10-04] MEDS: ATORVASTATIN 40 MG TABLET PO SCH (20:09)
[2017-10-05] MEDS: METOCLOPRAMIDE 5mg TABLET PO SCH ×2 (05:39→12:02)
[2017-10-05] MEDS: CIPROFLOXACIN 500 MG TABLET PO SCH ×2 (05:39→22:30)
[2017-10-05] MEDS: PANTOPRAZOLE 40 MG TABLET PO SCH (05:39)
--- NOTE | 2017-10-05 08:32 | Wound Care Progress Note ---
Wound Center Progress Note: Pt anxious to eat this morning. Will return on dismissal to change wound packing.
--- NOTE | 2017-10-05 08:55 | General Surgery Progress Note ---
Subjective Patient reports: tolerating liquids well (fulls, will advance as tolerated with regular as goal.), flatus, bowel movement - Vital Signs Last Vital Signs Temp 98.0 F 10/05/17 07:24 Pulse 80 10/05/17 07:24 Resp 16 10/05/17 07:24 BP 111/79 10/05/17 07:24 Pulse Ox 90 10/05/17 07:24 - Laboratory Result Diagrams: 10/05/17 04:30 10/05/17 04:30 - Abnormal Exam Abdominal: obese - Normal Exam General: awake, alert, oriented, no acute distress Respiratory: no labored breathing Abdominal: soft, non-tender, other (liquid dark stool in colostomy bag) Assessment and Plan (1) Small bowel obstruction Current Visit: Yes Status: Acute (2) Diabetes mellitus type 2 with complications Current Visit: Yes Status: Chronic (3) Essential (primary) hypertension Current Visit: Yes Status: Chronic (4) GERD (gastroesophageal reflux disease) Current Visit: Yes Status: Chronic (5) Rectal cancer Current Visit: Yes Status: Chronic Problem details: Oncologist: Dr. Dueñas S/P Neoadjuvant chemoradiation and robotic APR 01/12/2016 with positive resection margins. (6) H/O resection of rectum Current Visit: Yes Status: Chronic Plan: Advance diet as tolerated. some of small bowel distention is likely chronic. Hospital Course Summary Disclaimer: The visit summary below is not to be considered part of the above Progress Note. Hospital Course: 10/01/17 - Hospital admission Admit, observation for SBO NG tube placed in ER with drainage of 850cc's gastric fluid Morphine IV PRN pain, Zofran IV PRN nausea NPO, pantoprazole IV daily; replace magnesium Tele (had a brief run of PAT during recent hosp stay) Hold all home medications Surgical consult placed SCD's for DVT prophylaxis Code staus - full code Care to return to Dr. Rosa on dismissal. Plan 10/02/17- Continue NGT. RN to confirm placement. Assess KUB once NGT advanced. Surgery consulted- high grade bowel obstruction. Continue IVF, will add potassium as it is trending down. Magnesium replaced, normalized. BG is controlled with insulin held. Recent PAT- on metoprolol succinate for rate control. Continue to monitor blood counts closely- neutropenia, mild anemia. Continue supportive care. Follow labs closely. Pain is minimal. 10/03/17- Continue NGT/NPO. Continues to have fairly large amount of gastric drainage, but he had large BM this morning. Awaiting Dr. Rodriguez's recommendations -- anticipate conservative management. WBC up to 4.3. Hgb decreased to 10.3, but suspect this drop is heavily dilutional. K is still 3.5 - continue IVF with KCl. Mg decreased to 1.5 and IV bolus has been ordered. 10/04 Had large and copious results from Gastrografin small bowel follow through, abd soft, non-tender, denies nausea. Will discuss with Dr. Rodriguez.
--- NOTE | 2017-10-05 08:59 | Progress Note ---
- Date 10/05/17 Subjective: Toan is seen this morning in follow up. He is resting comfortably in bed at time of examination. He denies having abdominal pain on palpation. However, does report some "hunger pains". Denies nausea, shortness of breath or chest pain. He has had liquid stool output in his colostomy. Has tolerated liquid diet overnight. Objective Vital signs: Temperature 98.0 F 10/05/17 07:24 Pulse Rate 80 10/05/17 07:24 Respiratory Rate 16 10/05/17 07:24 Blood Pressure 111/79 10/05/17 07:24 Pulse Oximetry 90 10/05/17 07:24 Height/Weight/BMI: Height 1.88 m Weight 94 kg Body Mass Index 26.6 - Constitutional Present: no acute distress, well nourished, well developed - Routine HEENT Exam Eye: Present: EOMI ENT: Present: mucous membranes moist, dentition normal - Routine Respiratory Exam Present: CTA bilaterally. Absent: wheezes - Routine Cardiovascular Exam Present: RRR, S1, S2. Absent: murmur - Routine Abdominal Exam Present: soft, normoactive bowel sounds, non distended. Absent: tenderness - Routine Extremities Exam Present: pulses intact - Routine Skin Exam Present: intact, dry, warm - Routine Neurological Exam Present: alert, oriented X3, CN II-XII intact, moving all extremities - Routine Lymphatic Exam Lymphatic: Absent: adenopathy - Routine Psychiatric Exam Present: normal affect, cooperative Results - Labs CBC & Chem 7: 10/05/17 04:30 10/05/17 04:30 Assessment and Plan (1) Small bowel obstruction Current visit: Yes Status: Acute Assessment and Plan: Assessment High-grade small bowel obstruction with transition level distal of the distal ileum possibly secondary to scarring at the presacral level. Dehydration-resolved. 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 Tolerating liquid diet- Will advance as tolerated He is having good stool output ostomy. Mild Hypokalemia today- replace orally Continue to monitor blood sugars as they have been well controlled on metformin and sliding scale. Continue with Reglan scheduled to help her GI motility. Clinically improving. Will monitor patient today and be sure that she tolerates diet advancement. Case discussed with Bernie with Dr. Stanford, as well as attending. - Physician Narrative Physician: Lelo Mills MD Narrative: Date: 10/05/17 Time: 1330 Mr. Avila was interviewed and examined by me. He states he's just not doing very well. He states he can't eat and he's having increasing pain in the upper abdomen. He does have fairly liquid green output in the ostomy bag and he does state they have emptied it wants today. His bowel sounds however are quite quiet. I'm not sure he's going to tolerate a regular diet and we may have to back off back to full liquid. Surgery however is wanting to wait until a.m. imaging is completed before making that decision. Otherwise he denies any other complaints. I asked him about his ambulatory status and states that he usually doesn't walk because he's wobbly. Nursing reports he's wheelchair-bound. He does have fairly reasonable range of motion and strength in his bilateral lower extremities. I'm wondering if physical therapy wouldn't help him. PE: Gen: alert, conversive. Skin: warm and dry HEENT: NC/AT PERRL, EOMI, Sclera, lids and conjunctiva wnl. MMM. OP clear. Neck: No JVD, Carotids 2+ without bruits Lungs: clear. No rales, rhonchi or wheezes CV: regular. No murmur, rub or gallop Abd: soft. Very hypoactive BS (mostly heard distally). TTP upper abdomen. + distended. MS: No edema. Good strength and ROM, venous stasis discoloration Neuro: No focal deficits Psy: Appropriate mood and affect Assessment/Plan: High-grade small bowel obstruction with transition level distal of the distal ileum possibly secondary to scarring at the presacral level. -Surgery consulted. No plan for surgery at this time. KUB still shows dilated loops of small bowel. -+stool output -Tolerating fluids, Not tolerating regular diet very well. Surgery aware. -Repeating imaging in am. -Slow transit, -On scheduled reglan, increase to 10mg. Dehydration-RLL 10/01/17 -resolved. Recent hospitalization in [place] for vague symptoms - hypotension/dizziness and possible UTI (completed tx with Cipro) Rectal cancer -Dr. Dueñas - currently on q 2wk chemo, palliative Type 2 diabetes -Resume metformin -once eating regular diet will resume lantus as well. 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 Neutropenia -stable Hypomagnesemia -Resume po mag supplements -Give 4gm IV today -Repeat in am. Hypokalemia -Replace and recheck. Groin yeast -Nystatin Prophylaxis -PPI and SCDs. Consult PT Hospital Course Summary Disclaimer: The visit summary below is not to be considered part of the above Progress Note. Hospital Course: 10/01/17 - Hospital admission Admit, observation for SBO NG tube placed in ER with drainage of 850cc's gastric fluid Morphine IV PRN pain, Zofran IV PRN nausea NPO, pantoprazole IV daily; replace magnesium Tele (had a brief run of PAT during recent hosp stay) Hold all home medications Surgical consult placed SCD's for DVT prophylaxis Code staus - full code Care to return to Dr. Rosa on dismissal. Plan 10/02/17- Continue NGT. RN to confirm placement. Assess KUB once NGT advanced. Surgery consulted- high grade bowel obstruction. Continue IVF, will add potassium as it is trending down. Magnesium replaced, normalized. BG is controlled with insulin held. Recent PAT- on metoprolol succinate for rate control. Continue to monitor blood counts closely- neutropenia, mild anemia. Continue supportive care. Follow labs closely. Pain is minimal. 10/03/17- Continue NGT/NPO. Continues to have fairly large amount of gastric drainage, but he had large BM this morning. Awaiting Dr. Stanford's recommendations -- anticipate conservative management. WBC up to 4.3. Hgb decreased to 10.3, but suspect this drop is heavily dilutional. K is still 3.5 - continue IVF with KCl. Mg decreased to 1.5 and IV bolus has been ordered. 10/04 Had large and copious results from Gastrografin small bowel follow through, abd soft, non-tender, denies nausea. Will discuss with Dr. Stanford. 10/[address] Espino surgical consultation. Tolerating liquid diet- Will advance as tolerated He is having good stool output ostomy. Mild Hypokalemia today- replace orally Continue to monitor blood sugars as they have been well controlled on metformin and sliding scale. Continue with Reglan scheduled to help her GI motility. Clinically improving. Will monitor patient today and be sure that she tolerates diet advancement. Case discussed with Bernie with Dr. Stanford, as well as attending.
[2017-10-05] MEDS: ASPIRIN 81 MG CHEWABLE TABLET PO SCH (09:31)
[2017-10-05] MEDS: METFORMIN 500 MG TABLET PO SCH ×2 (09:32→16:34)
[2017-10-05] MEDS: SERTRALINE 100 MG TABLET PO SCH (09:38)
[2017-10-05] MEDS: CETIRIZINE 10 MG TABLET PO SCH (09:38)
[2017-10-05] MEDS: FLUTICASONE NASAL SPRAY 50mcg EA NOSTRIL SCH ×2 (09:38→22:31)
[2017-10-05] MEDS: EUCERIN CREAM 57gm TP SCH (09:39)
[2017-10-05] MEDS: MAGNESIUM OXIDE 400 MG TABLET PO SCH ×4 (09:44→22:30)
[2017-10-05] MEDS: SALINE FLUSH 10ml SYRINGE IVF PRN ×2 (10:56→19:42)
[2017-10-05] MEDS: DiphenhydrAMINE 50 MG/ML INJECTION IVP SCH (10:56)
[2017-10-05] MEDS: FERROUS SULFATE 324 MG TABLET PO SCH (12:04)
--- NOTE | 2017-10-05 14:16 | Progress Note ---
DATE 10/05/2017 FINDINGS Mr. Avila was seen this morning on rounds. He stated that he was hungry. He denied any element of nausea or vomiting. He stated he was having some discomfort but this was fairly nonspecific. VITALS: Afebrile. Normotensive. Last recorded vitals include temperature 98.0 , pulse 80, respirations 16, blood pressure 111/79, SaO2 90% on room air. HEENT: Normocephalic. Pupils are equal, round and reactive to light and accommodation. CHEST: Clear to auscultation bilaterally. HEART: Regular rate and rhythm. Normal S1 and S2 without gallops, murmurs or clicks. ABDOMEN: Visualization of the abdomen does reveal some liquidy stool within his colostomy. Palpation of the abdomen revealed it to be soft and nontender. ASSESSMENT 67-year-old gentleman with high-grade partial small bowel obstruction. Patient clinically doing well. A personal history for rectal cancer. Status post APR and chemoradiation. PLAN I am still concerned that the patient will ultimately require surgical intervention given his marked radiographic abnormalities. CBC and BMP were obtained today and found to be without marked abnormalities. Potassium is slightly low at 3.3. Will go ahead advance the patient's diet to a regular diet today. Will continue to follow him from a clinical standpoint. If he is able to tolerate a regular diet, we may consider discharge to home. If he would develop recurrent nausea and vomiting, increasing abdominal distention, would then likely proceed with surgical intervention/exploratory laparotomy. SARA
[2017-10-05] MEDS: MAGNESIUM SULFATE 1gm PREMIX 1 GM/100 ML BAG IV SCH ×4 (14:26→17:49)
[2017-10-05] MEDS: TAMSULOSIN 0.4 MG CAPSULE PO SCH (22:30)
[2017-10-05] MEDS: ATORVASTATIN 40 MG TABLET PO SCH (22:30)
[2017-10-05] MEDS: MIRTAZAPINE 45 MG TABLET PO SCH (22:31)
[2017-10-06] MEDS: FERROUS SULFATE 324 MG TABLET PO SCH ×3 (00:47→20:04)
[2017-10-06] MEDS: CIPROFLOXACIN 500 MG TABLET PO SCH ×2 (06:42→20:04)
[2017-10-06] MEDS: PANTOPRAZOLE 40 MG TABLET PO SCH (06:43)
[2017-10-06] MEDS: CETIRIZINE 10 MG TABLET PO SCH (08:38)
[2017-10-06] MEDS: SERTRALINE 100 MG TABLET PO SCH (08:38)
[2017-10-06] MEDS: ASPIRIN 81 MG CHEWABLE TABLET PO SCH (08:38)
[2017-10-06] MEDS: METFORMIN 500 MG TABLET PO SCH ×2 (08:38→17:08)
[2017-10-06] MEDS: MAGNESIUM OXIDE 400 MG TABLET PO SCH ×4 (08:38→20:04)
[2017-10-06] MEDS: FLUTICASONE NASAL SPRAY 50mcg EA NOSTRIL SCH ×2 (08:39→20:04)
[2017-10-06] MEDS: EUCERIN CREAM 57gm TP SCH (08:41)
--- NOTE | 2017-10-06 08:48 | XRay Report ---
Indication: SBO? PROCEDURE: XR KUB: Encounter: Initial Comparison: Radiographs dated October 04, 2017 Findings: Residual contrast material in the colon which appears relatively normal in caliber. Numerous markedly dilated small bowel loops remain. Prior nasogastric tube has been removed. The degree of bowel distention is slightly worsened. Impression: Slight worsening in generalized distention of small bowel again suggests a high-grade partial obstruction. .
--- NOTE | 2017-10-06 10:36 | Progress Note ---
- Date 10/06/17 Subjective: Patient is a 67-year-old who presented to the emergency room from [facility] in [place] for vomiting fecal-like material and abdominal pain which started 09/30/17 pm. He has rectal cancer and has had robotic-assisted A/P resection and colostomy by Dr. Stanford in 2016. Patient states he was in the hospital in [place] September 28- and was dismissed 09/30/17 am feeling okay. Abdominal pain, nausea and vomiting didn't start until later in the day. In talking with patient's PCP, patient was seen initially in the ER on September 26 with dizziness and other vague symptoms. UA was positive for UTI, although patient didn't have any urinary symptoms. He was started on Cipro. He returned to the clinic on the still not feeling well and complaining of vague symptoms including dizziness; he was thus hospitalized for IV fluids and further observation. He did complete the full course of Cipro for possible UTI. There were no significant events during his hospital stay. CT scan in the ER revealed high-grade small bowel obstruction. NG tube was placed with drainage of [address] Tate was notified and agrees to consult. Dr. Stanford took over care on the and initially felt he may need to have surgical intervention but opted to manage conservatively after the patient improved from a radiographic standpoint. His diet progressed to a regular diet starting yesterday. He did not tolerate that diet well yesterday but has done better today. The abdominal pain that he experienced last evening has resolved. His bowels sounds are more active today. He continues to have stool in the ostomy bag that is liquid and green. Overall he is feeling much better than he did yesterday. He denies any fever or chills. He denies any lightheadedness dizziness. He denies any problems with shortness of breath, distribution exertion, PND or orthopnea. He denies nausea or vomiting. Denies any genitourinary symptoms. Objective Vital signs: Temperature 96.6 F L 10/06/17 07:59 Pulse Rate 64 10/06/17 07:59 Respiratory Rate 16 10/06/17 07:59 Blood Pressure 100/63 10/06/17 07:59 Pulse Oximetry 92 10/06/17 07:59 Rhythm: Normal Sinus Rhythm, Third Degree AV Block Height/Weight/BMI: Height 1.88 m Weight 94.3 kg Body Mass Index 26.6 Comments: Gen: alert, conversive. Skin: warm and dry HEENT: NC/AT PERRL, EOMI, Sclera, lids and conjunctiva wnl. MMM. OP clear. Neck: No JVD, Carotids 2+ without bruits Lungs: clear. No rales, rhonchi or wheezes CV: regular. No murmur, rub or gallop Abd: soft. Mild TTP upper abdomen. +high pitch BS MS: No edema. Good strength and ROM, venous stasis discoloration Neuro: No focal deficits Psy: Appropriate mood and affect Results - Labs CBC & Chem 7: 10/06/17 04:10 10/06/17 04:10 Assessment and Plan (1) Small bowel obstruction Current visit: Yes Status: Acute Assessment and Plan: Assessment/Plan: High-grade small bowel obstruction with transition level distal of the distal ileum possibly secondary to scarring at the presacral level. -Surgery consulted. No plan for surgery at this time. -KUB today looks a bit worse: Impression: Slight worsening in generalized distention of small bowel again suggests a high-grade partial obstruction. -+stool output -had increased abdominal pain yesterday with regular diet. Did not eat much this morning but the abdominal pain has resolved. -Slow transit, -On scheduled reglan 10mg ACHS. -Will await surgical recommendations Dehydration -resolved. Recent hospitalization in [place] for vague symptoms - hypotension/dizziness and possible UTI (completed tx with Cipro) Rectal cancer -Dr. Dueñas - currently on q 2wk chemo, palliative Type 2 diabetes -Resume metformin -once eating regular diet will resume lantus as well. 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 Neutropenia -stable Hypomagnesemia -mag supplements -Given IV mag yesterday -Follow Hypokalemia -Replace and recheck. Groin yeast -Nystatin Prophylaxis -PPI and SCDs. Consult PT I spoke with Dr. Stanford. He does feel that at some point he is going to need to do surgery on Mr. Avila but he is reluctant as it will be a very long and difficult case and he wants to make sure his sister who is his DPOA understands the risks involved. He recommends keeping him another day and seeing how he does. - Physician Narrative Narrative: Date: 10/06/17 Time: 1031 Hospital Course Summary Disclaimer: The visit summary below is not to be considered part of the above Progress Note. Hospital Course: 10/01/17 - Hospital admission Admit, observation for SBO NG tube placed in ER with drainage of 850cc's gastric fluid Morphine IV PRN pain, Zofran IV PRN nausea NPO, pantoprazole IV daily; replace magnesium Tele (had a brief run of PAT during recent hosp stay) Hold all home medications Surgical consult placed SCD's for DVT prophylaxis Code staus - full code Care to return to Dr. Rosa on dismissal. Plan 10/02/17- Continue NGT. RN to confirm placement. Assess KUB once NGT advanced. Surgery consulted- high grade bowel obstruction. Continue IVF, will add potassium as it is trending down. Magnesium replaced, normalized. BG is controlled with insulin held. Recent PAT- on metoprolol succinate for rate control. Continue to monitor blood counts closely- neutropenia, mild anemia. Continue supportive care. Follow labs closely. Pain is minimal. 10/03/17- Continue NGT/NPO. Continues to have fairly large amount of gastric drainage, but he had large BM this morning. Awaiting Dr. Stanford's recommendations -- anticipate conservative management. WBC up to 4.3. Hgb decreased to 10.3, but suspect this drop is heavily dilutional. K is still 3.5 - continue IVF with KCl. Mg decreased to 1.5 and IV bolus has been ordered. 10/04 Had large and copious results from Gastrografin small bowel follow through, abd soft, non-tender, denies nausea. Will discuss with Dr. Stanford. 10/[address] Espino surgical consultation. Tolerating liquid diet- Will advance as tolerated He is having good stool output ostomy. Mild Hypokalemia today- replace orally Continue to monitor blood sugars as they have been well controlled on metformin and sliding scale. Continue with Reglan scheduled to help her GI motility. Clinically improving. Will monitor patient today and be sure that she tolerates diet advancement. Case discussed with Bernie with Dr. Stanford, as well as attending.
--- NOTE | 2017-10-06 10:37 | General Surgery Progress Note ---
Subjective Patient reports: feels better, tolerating a regular diet, bowel movement Narrative: In spite of radiology report of slightly worsening possible bowel obstruction, Toan states he is feeling better. The colostomy bag has been emptied once this morning and there is more green stool in it now. He ate a regular breakfast of cereal, hurst, juice, denies nausea. - Vital Signs Last Vital Signs Temp 96.6 F L 10/06/17 07:59 Pulse 64 10/06/17 07:59 Resp 16 10/06/17 07:59 BP 100/63 10/06/17 07:59 Pulse Ox 92 10/06/17 07:59 - Laboratory Result Diagrams: 10/06/17 04:10 10/06/17 04:10 - Radiology KUB upright Findings: Residual contrast material in the colon which appears relatively normal in caliber. Numerous markedly dilated small bowel loops remain. Prior nasogastric tube has been removed. The degree of bowel distention is slightly worsened. Impression: Slight worsening in generalized distention of small bowel again suggests a high-grade partial obstruction. - Abnormal Exam Abdominal: obese - Normal Exam General: awake, alert, oriented, no acute distress Cardiovascular: regular rate Respiratory: clear bilaterally, no labored breathing Abdominal: soft, no guarding, no rebound, non-tender, other (liquid green stool in colostomy bag) Psychiatric: normal affect Assessment and Plan (1) Small bowel obstruction Current Visit: Yes Status: Acute (2) Diabetes mellitus type 2 with complications Current Visit: Yes Status: Chronic (3) Essential (primary) hypertension Current Visit: Yes Status: Chronic (4) GERD (gastroesophageal reflux disease) Current Visit: Yes Status: Chronic (5) Rectal cancer Current Visit: Yes Status: Chronic Problem details: Oncologist: Dr. Dueñas S/P Neoadjuvant chemoradiation and robotic APR 01/12/2016 with positive resection margins. (6) H/O resection of rectum Current Visit: Yes Status: Chronic Plan: Clinically he is doing better, but KUB indicates possible worsening small bowel obstruction. Will await 's evaluation. Hospital Course Summary Disclaimer: The visit summary below is not to be considered part of the above Progress Note. Hospital Course: 10/01/17 - Hospital admission Admit, observation for SBO NG tube placed in ER with drainage of 850cc's gastric fluid Morphine IV PRN pain, Zofran IV PRN nausea NPO, pantoprazole IV daily; replace magnesium Tele (had a brief run of PAT during recent hosp stay) Hold all home medications Surgical consult placed SCD's for DVT prophylaxis Code staus - full code Care to return to Dr. Rosa on dismissal. Plan 10/02/17- Continue NGT. RN to confirm placement. Assess KUB once NGT advanced. Surgery consulted- high grade bowel obstruction. Continue IVF, will add potassium as it is trending down. Magnesium replaced, normalized. BG is controlled with insulin held. Recent PAT- on metoprolol succinate for rate control. Continue to monitor blood counts closely- neutropenia, mild anemia. Continue supportive care. Follow labs closely. Pain is minimal. 10/03/17- Continue NGT/NPO. Continues to have fairly large amount of gastric drainage, but he had large BM this morning. Awaiting Dr. Stanford's recommendations -- anticipate conservative management. WBC up to 4.3. Hgb decreased to 10.3, but suspect this drop is heavily dilutional. K is still 3.5 - continue IVF with KCl. Mg decreased to 1.5 and IV bolus has been ordered. 10/04 Had large and copious results from Gastrografin small bowel follow through, abd soft, non-tender, denies nausea. Will discuss with Dr. tSanford. 10/[address] Espino surgical consultation. Tolerating liquid diet- Will advance as tolerated He is having good stool output ostomy. Mild Hypokalemia today- replace orally Continue to monitor blood sugars as they have been well controlled on metformin and sliding scale. Continue with Reglan scheduled to help her GI motility. Clinically improving. Will monitor patient today and be sure that she tolerates diet advancement. Case discussed with Bernie with Dr. Stanford, as well as attending.
--- NOTE | 2017-10-06 11:33 | Wound Care Progress Note ---
Wound Center Progress Note: In to see Toan this AM, very pleasant and cooperative. At this time old drsg removed, wound cleaned. 3M advanced protectant applied to erinn skin and coccyx, I encouraged Toan to stay off of this bottom and to lay on his sides. At this time his wound measures 3.5 x 3 .5, Maxabsorb placed in the wound and then all covered with ABD.
[2017-10-06] MEDS: DiphenhydrAMINE 50 MG/ML INJECTION IVP SCH (11:49)
[2017-10-06] MEDS: SALINE FLUSH 10ml SYRINGE IVF PRN (20:03)
[2017-10-06] MEDS: MIRTAZAPINE 45 MG TABLET PO SCH (20:04)
[2017-10-06] MEDS: ATORVASTATIN 40 MG TABLET PO SCH (20:04)
[2017-10-06] MEDS: TAMSULOSIN 0.4 MG CAPSULE PO SCH (20:04)
[2017-10-07] MEDS: CIPROFLOXACIN 500 MG TABLET PO SCH ×2 (05:50→20:01)
[2017-10-07] MEDS: PANTOPRAZOLE 40 MG TABLET PO SCH (05:50)
--- NOTE | 2017-10-07 08:46 | Progress Note ---
- Date 10/07/17 Subjective: Patient is a 67-year-old who presented to the emergency room from [facility] in [place] for vomiting fecal-like material and abdominal pain which started 09/30/17 pm. He has rectal cancer and has had robotic-assisted A/P resection and colostomy by Dr. Stanford in 2016. Patient states he was in the hospital in [place] September 28- and was dismissed 09/30/17 am feeling okay. Abdominal pain, nausea and vomiting didn't start until later in the day. In talking with patient's PCP, patient was seen initially in the ER on September 26 with dizziness and other vague symptoms. UA was positive for UTI, although patient didn't have any urinary symptoms. He was started on Cipro. He returned to the clinic on the still not feeling well and complaining of vague symptoms including dizziness; he was thus hospitalized for IV fluids and further observation. He did complete the full course of Cipro for possible UTI. There were no significant events during his hospital stay. CT scan in the ER revealed high-grade small bowel obstruction. NG tube was placed with drainage of [address] Tate was notified and agrees to consult. Dr. Stanford took over care on the and initially felt he may need to have surgical intervention but opted to manage conservatively after the patient improved from a radiographic standpoint. His diet progressed to a regular diet starting 10/05/17. He did not tolerate that diet well and had increased abdominal pain but it was continued and on 10/06/17 he did better with it and the pain resolved on its own. Bowel sounds on 10/05/17 were quiet, on 10/06/17 they were hyperactive and high pitched. Today, he continues to tolerate regular diet but he is not eating much. He continues to have stool in the ostomy bag that is liquid and green. Bowel sounds today are more quiet but are there and are not high pitched. He denies any fever or chills. He denies any lightheadedness dizziness. He denies any problems with shortness of breath, PND or orthopnea. He denies nausea or vomiting. Denies any genitourinary symptoms. Objective Vital signs: Temperature 96.0 F L 10/07/17 08:01 Pulse Rate 79 10/07/17 08:01 Respiratory Rate 16 10/07/17 08:01 Blood Pressure 120/86 10/07/17 08:01 Pulse Oximetry 93 10/07/17 08:01 Rhythm: Normal Sinus Rhythm, Third Degree AV Block Height/Weight/BMI: Height 1.88 m Weight 92.1 kg Body Mass Index 26.6 Comments: Gen: alert, conversive. Skin: warm and dry HEENT: NC/AT PERRL, EOMI, Sclera, lids and conjunctiva wnl. MMM. OP clear. Neck: No JVD, Carotids 2+ without bruits Lungs: clear. No rales, rhonchi or wheezes CV: regular. No murmur, rub or gallop Abd: soft. Mild TTP upper abdomen. +BS hypoactive and heard best distally MS: No edema. Good strength and ROM, venous stasis discoloration Neuro: No focal deficits Psy: Appropriate mood and affect Results - Labs CBC & Chem 7: 10/06/17 04:10 10/07/17 04:09 Assessment and Plan (1) Small bowel obstruction Current visit: Yes Status: Acute Assessment and Plan: Assessment/Plan: High-grade small bowel obstruction with transition level distal of the distal ileum possibly secondary to scarring at the presacral level. -Surgery consulted. No plan for surgery at this time. -KUB continues to show evidence of high-grade SBO. -+stool output minimal -No abdominal pain today -Slow transit, -On scheduled reglan 10mg ACHS. -Tolerating regular diet fairly well but not eating a whole lot. -Will await surgical recommendations Dehydration -resolved. Recent hospitalization in [place] for vague symptoms - hypotension/dizziness and possible UTI (completed tx with Cipro) Rectal cancer -Dr. Dueñas - currently on q 2wk chemo, palliative Type 2 diabetes -Resume metformin -once eating better will resume lantus as well. 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 Neutropenia -stable Hypomagnesemia -mag supplements -Given IV mag yesterday -Follow Hypokalemia -Replace and recheck. Groin yeast -Nystatin Prophylaxis -PPI and SCDs. Consult PT I spoke with Dr. Stanford. He examined the pt this afternoon and the pt complained of more abdominal pain. His abdomen is more distended and taut. He is going to proceed with surgery in the morning. - Physician Narrative Narrative: Date: 10/07/17 Time: 0842 Hospital Course Summary Disclaimer: The visit summary below is not to be considered part of the above Progress Note. Hospital Course: 10/01/17 - Hospital admission Admit, observation for SBO NG tube placed in ER with drainage of 850cc's gastric fluid Morphine IV PRN pain, Zofran IV PRN nausea NPO, pantoprazole IV daily; replace magnesium Tele (had a brief run of PAT during recent hosp stay) Hold all home medications Surgical consult placed SCD's for DVT prophylaxis Code staus - full code Care to return to Dr. Rosa on dismissal. Plan 10/02/17- Continue NGT. RN to confirm placement. Assess KUB once NGT advanced. Surgery consulted- high grade bowel obstruction. Continue IVF, will add potassium as it is trending down. Magnesium replaced, normalized. BG is controlled with insulin held. Recent PAT- on metoprolol succinate for rate control. Continue to monitor blood counts closely- neutropenia, mild anemia. Continue supportive care. Follow labs closely. Pain is minimal. 10/03/17- Continue NGT/NPO. Continues to have fairly large amount of gastric drainage, but he had large BM this morning. Awaiting Dr. Stanford's recommendations -- anticipate conservative management. WBC up to 4.3. Hgb decreased to 10.3, but suspect this drop is heavily dilutional. K is still 3.5 - continue IVF with KCl. Mg decreased to 1.5 and IV bolus has been ordered. 10/04 Had large and copious results from Gastrografin small bowel follow through, abd soft, non-tender, denies nausea. Will discuss with Dr. Stanford. 10/[address] Espino surgical consultation. Tolerating liquid diet- Will advance as tolerated He is having good stool output ostomy. Mild Hypokalemia today- replace orally Continue to monitor blood sugars as they have been well controlled on metformin and sliding scale. Continue with Reglan scheduled to help her GI motility. Clinically improving. Will monitor patient today and be sure that she tolerates diet advancement. Case discussed with Bernie with Dr. Stanford, as well as attending.
[2017-10-07] MEDS: SALINE FLUSH 10ml SYRINGE IVF PRN (09:42)
[2017-10-07] MEDS: CALCIUM CARBONATE Chewable 500mg TABLET PO PRN (09:42)
[2017-10-07] MEDS: SERTRALINE 100 MG TABLET PO SCH (09:43)
[2017-10-07] MEDS: CETIRIZINE 10 MG TABLET PO SCH (09:43)
[2017-10-07] MEDS: ASPIRIN 81 MG CHEWABLE TABLET PO SCH (09:43)
[2017-10-07] MEDS: METFORMIN 500 MG TABLET PO SCH ×2 (09:43→17:17)
[2017-10-07] MEDS: MAGNESIUM OXIDE 400 MG TABLET PO SCH ×4 (09:43→20:01)
[2017-10-07] MEDS: FLUTICASONE NASAL SPRAY 50mcg EA NOSTRIL SCH ×2 (09:44→20:01)
[2017-10-07] MEDS: MAGNESIUM SULFATE 1gm PREMIX 1 GM/100 ML BAG IV SCH ×2 (09:53→11:31)
[2017-10-07] MEDS: EUCERIN CREAM 57gm TP SCH (09:54)
--- NOTE | 2017-10-07 10:03 | XRay Report ---
Indication: SBO PROCEDURE: XR KUB: Encounter: Initial Comparison: October 06, 2017 Findings: Airspace disease in the left lower lobe. No gross free air on these supine views. Continued distention of the small bowel with some residual contrast material in the colon. The overall degree of bowel distention is slightly improved. Impression: Slight improvement in diffuse small bowel dilatation. .
[2017-10-07] MEDS: DiphenhydrAMINE 50 MG/ML INJECTION IVP SCH (11:32)
[2017-10-07] MEDS: FERROUS SULFATE 324 MG TABLET PO SCH ×2 (13:05→20:00)
--- NOTE | 2017-10-07 13:42 | Progress Note ---
DATE 10/06/2017 FINDINGS Mr. Avila was seen earlier this evening on rounds. He denied any element of abdominal pain. He stated that he has had a fair amount of output from his colostomy. He states that he is feeling "better than yesterday." VITALS: Afebrile. Normotensive. Current vitals include temperature 96.5, pulse 65, respirations 18, blood pressure 113/74, SaO2 92% on room air. HEENT: Normocephalic. Pupils are equal, round and reactive to light and accommodation. CHEST: Clear to auscultation bilaterally. HEART: Regular rate and rhythm. Normal S1 and S2 without gallops, murmurs or clicks. ABDOMEN: Visualization of the abdomen does not reveal it to be significantly distended. Palpation of the abdomen reveals it to be soft and completely nontender. There was a moderate amount of liquid stool within his colostomy. LABORATORY/RADIOGRAPH EVALUATION The patient had a KUB performed today. Finding was slight worsening of generalized distention of small bowel, again suggesting high-grade small bowel obstruction. ASSESSMENT 67-year-old gentleman with radiographic evidence for high-grade small bowel obstruction but doing quite well from a clinical standpoint. PLAN It is difficult to know how best to proceed with Mr. Avila. Radiographically, it does appear that he has a significant high-grade partial small bowel obstruction. Clinically, however, he is tolerating a regular diet without difficulty and is having good output of his colostomy. At this time I would recommend that we continue to follow him more so from a clinical standpoint than that of a radiographic standpoint. If, tomorrow, he still remains without any onset of nausea or vomiting or recurrent abdominal pain, I would go ahead and discharge him to home. I would not be surprised, however, if in the future he would develop recurrent problems requiring readmission. Ultimately, it is my intuition that we may be "forced" to proceed with surgical intervention. I do feel, however, that surgery would be complicated given his prior history for radiation and abdominoperineal resection. At this time would not recommend surgical intervention unless he would have ongoing recurrent symptomatology as discussed above. SARA
--- NOTE | 2017-10-07 14:24 | Progress Note ---
DATE 10/07/2017 FINDINGS Mr. Avila was seen this morning on rounds. He states that he slept well last evening with no significant abdominal pain. He has not had any element of nausea or vomiting. OBJECTIVE VITALS: Afebrile. Normotensive. Current vitals include temperature 96.0, pulse 79, respirations 16, blood pressure 120/86, SaO2 93% on room air. HEENT: Normocephalic. Pupils are equally round and react to light and accommodation. CHEST: Clear to auscultation bilaterally. HEART: Regular rate and rhythm. Normal S1, S2, without gallops, murmurs or clicks. ABDOMEN: Palpation of the abdomen this morning revealed it to be soft and completely nontender. There was stool present within his colostomy bag. ASSESSMENT 67-year-old gentleman with high-grade small bowel obstruction noted radiographically but clinically doing quite well. PLAN Will go ahead and continue with a regular diet this morning. If he continues to tolerate regular food without difficulty, would discharge back to [facility] facility. As stated previously, it is my intuition the patient will likely have ongoing problems in the future and may ultimately require surgical intervention. At this time however, would recommend that we continue to be conservative in nature. SARA
--- NOTE | 2017-10-07 15:32 | General Surgery Progress Note ---
Subjective Narrative: Feeling worse, states being bloated and tight, he is not feeling as good as he did yesterday and is reluctant to think about going back to his residence. Denies actual nausea, but appetite is down and the is a small amount of liquid stool in his colostomy bag left from last night, it has not been emptied or burped by day shift. No emesis. He is asking if he needs the "tube" again, noting it made him feel better "last time." - Vital Signs Last Vital Signs Temp 96.0 F L 10/07/17 08:01 Pulse 79 10/07/17 08:01 Resp 16 10/07/17 08:01 BP 120/86 10/07/17 08:01 Pulse Ox 93 10/07/17 08:01 - Laboratory Result Diagrams: 10/06/17 04:10 10/07/17 04:09 - Abnormal Exam Abdominal: obese, hypoactive bowel sounds, firm, distended, tender (mild tenderness with palpation) - Normal Exam General: awake, alert, oriented Cardiovascular: regular rate Respiratory: no labored breathing Psychiatric: normal affect Assessment and Plan (1) Small bowel obstruction Current Visit: Yes Status: Acute (2) Diabetes mellitus type 2 with complications Current Visit: Yes Status: Chronic (3) Essential (primary) hypertension Current Visit: Yes Status: Chronic (4) GERD (gastroesophageal reflux disease) Current Visit: Yes Status: Chronic (5) Rectal cancer Current Visit: Yes Status: Chronic Problem details: Oncologist: Dr. Dueñas S/P Neoadjuvant chemoradiation and robotic APR 01/12/2016 with positive resection margins. (6) H/O resection of rectum Current Visit: Yes Status: Chronic Plan: Concerned about possible return of SBO. His abd is firm and distended compared to yesterday morning. Minimal stool in colostomy bag in the last 12 hours. Will report to Dr. Stanford and await his thoughts/recommendations. Hospital Course Summary Disclaimer: The visit summary below is not to be considered part of the above Progress Note. Hospital Course: 10/01/17 - Hospital admission Admit, observation for SBO NG tube placed in ER with drainage of 850cc's gastric fluid Morphine IV PRN pain, Zofran IV PRN nausea NPO, pantoprazole IV daily; replace magnesium Tele (had a brief run of PAT during recent hosp stay) Hold all home medications Surgical consult placed SCD's for DVT prophylaxis Code staus - full code Care to return to Dr. Rosa on dismissal. Plan 10/02/17- Continue NGT. RN to confirm placement. Assess KUB once NGT advanced. Surgery consulted- high grade bowel obstruction. Continue IVF, will add potassium as it is trending down. Magnesium replaced, normalized. BG is controlled with insulin held. Recent PAT- on metoprolol succinate for rate control. Continue to monitor blood counts closely- neutropenia, mild anemia. Continue supportive care. Follow labs closely. Pain is minimal. 10/03/17- Continue NGT/NPO. Continues to have fairly large amount of gastric drainage, but he had large BM this morning. Awaiting Dr. Stanford's recommendations -- anticipate conservative management. WBC up to 4.3. Hgb decreased to 10.3, but suspect this drop is heavily dilutional. K is still 3.5 - continue IVF with KCl. Mg decreased to 1.5 and IV bolus has been ordered. 10/04 Had large and copious results from Gastrografin small bowel follow through, abd soft, non-tender, denies nausea. Will discuss with Dr. Stanford. 10/[address] Espino surgical consultation. Tolerating liquid diet- Will advance as tolerated He is having good stool output ostomy. Mild Hypokalemia today- replace orally Continue to monitor blood sugars as they have been well controlled on metformin and sliding scale. Continue with Reglan scheduled to help her GI motility. Clinically improving. Will monitor patient today and be sure that she tolerates diet advancement. Case discussed with Bernie with Dr. Stanford, as well as attending.
--- NOTE | 2017-10-07 16:49 | XRay Report ---
Indication: NG TUBE PLACEMENT PROCEDURE: XR KUB: Encounter: Initial Comparison: October 07, 2017 at 0526 Findings: Nasogastric tube is now in place with the tip and side port projecting over the body of the stomach. Continued dilated small bowel seen throughout the abdomen. The colon appears relatively normal in caliber with residual contrast material in the left colon. The overall degree of small bowel distention is not significantly changed. Impression: New nasogastric tube as above. .
--- NOTE | 2017-10-07 18:20 | Progress Note ---
DATE OF SERVICE 10/07/2017 FINDINGS Mr. Avila was seen this evening on rounds. Unfortunately, Toan was now again complaining of significant abdominal discomfort with increasing abdominal distention. He states he has had very little output through his colostomy. He is questioning whether or not he needs the "tube put down his nose again." Patient states that "last time it made him feel better." EXAM VITAL SIGNS: Afebrile, normotensive. Last recorded vitals include temperature 96.0, pulse 79, respirations 16, blood pressure 120/86, SAO2 92% room air. HEENT: Normocephalic. Pupils are equally round and react to light and accommodation. CHEST: Clear to auscultation bilaterally. ABDOMEN: Visualization of the abdomen reveals it to be markedly more distended this evening in comparison to this morning. There is essentially no output within his colostomy currently. Palpation of the abdomen reveals it to be quite taut. There was, however, no evidence for guarding or rebound. ASSESSMENT 67-year-old gentleman with high-grade small-bowel obstruction that appears to now have progressed to a complete small bowel obstruction one again. PLAN Reinsertion of NG. Place NG to low intermittent suction. Proceed with exploratory laparotomy with probable lysis of adhesions, possible small-bowel resection tomorrow a.m. I informed Toan this evening that unfortunately he has failed conservative measures and has developed clinical signs once again of a complete small-bowel obstruction. Radiographically, he has had evidence for an ongoing high-grade small-bowel obstruction. As previously dictated, it was my intuition that the patient would likely fail nonoperative management. I do believe that he has "declared itself" at this time. I have tried to contact his sister who has durable power attorney general this evening and have been unable to reach her. I have asked the nursing staff to continue to try to contact his sister with the above recommendations. NG will be placed. This will be placed to low intermittent suction. The patient will continue to be followed over the course of this evening. Unless the patient would begin to worsen from a clinical standpoint will delay surgical intervention until tomorrow morning. Tomorrow will plan on proceeding with exploratory laparotomy. I do believe that the surgery is going to be likely difficult given his prior history for abdominal perineal resection followed by radiation. SARA
[2017-10-07] MEDS: ATORVASTATIN 40 MG TABLET PO SCH (20:00)
[2017-10-07] MEDS: TAMSULOSIN 0.4 MG CAPSULE PO SCH (20:01)
[2017-10-07] MEDS: MIRTAZAPINE 45 MG TABLET PO SCH (20:01)
[2017-10-08] MEDS ORDERED: D5-1/2NS 1,000 ML IV SCH (06:15)
[2017-10-08] MEDS: PANTOPRAZOLE 40 MG TABLET PO SCH (07:32)
[2017-10-08] MEDS: CIPROFLOXACIN 500 MG TABLET PO SCH (07:32)
[2017-10-08] MEDS: METFORMIN 500 MG TABLET PO SCH (07:34)
[2017-10-08] MEDS ORDERED: FentaNYL 250 MCG/5 ML INJECTION ONE (07:50)
[2017-10-08] MEDS ORDERED: MIDAZOLAM 2mg/2ml INJECTION ONE (07:50)
[2017-10-08] MEDS: LR 1,000 ML IV SCH ×2 (08:05→09:26)
[2017-10-08] MEDS ORDERED: PROPOFOL 20 ML ONE (08:06)
[2017-10-08] MEDS: FLUTICASONE NASAL SPRAY 50mcg EA NOSTRIL SCH ×2 (08:10→20:37)
[2017-10-08] MEDS: MAGNESIUM OXIDE 400 MG TABLET PO SCH (08:10)
[2017-10-08] MEDS ORDERED: ERTAPENEM 1 G in NS 100 ML IV ONE (08:22)
[2017-10-08] MEDS ORDERED: PHENYLEPHRINE INJ 10 MG/ML VIAL IV ONE (08:44)
[2017-10-08] MEDS ORDERED: HEPARIN SUB-Q 5,000units/0.5ml INJECTION SQ ONE (08:46)
[2017-10-08] MEDS ORDERED: DEXAMETHASONE 4 MG/ML INJECTION ONE (09:20)
[2017-10-08] MEDS ORDERED: SUGAMMADEX 200mg/2ml INJECTION IVP ONE (09:20)
[2017-10-08] MEDS ORDERED: ONDANSETRON 4 MG/2 ML INJECTION ONE (09:20)
--- NOTE | 2017-10-08 09:54 | Anesthesia Preoperative Report ---
Anesthesia Preoperative Record - Date and Time Date: 10/08/17 Preoperative Diagnosis: small bowel obstruction Proposed Procedure: ex lap NPO Since Date: 10/07/17 NPO Since Time: 12:00 Allergies/Adverse Reactions: Allergies Allergy/AdvReac Type Severity Reaction Status Date / Time Iodinated Contrast- Oral and Allergy Unknown Verified 10/01/17 14:00 IV Dye - Vital Signs Vital Signs: Temperature 95.6 F L 10/08/17 07:15 Pulse Rate 61 10/08/17 07:15 Respiratory Rate 12 10/08/17 07:15 Blood Pressure 112/74 10/08/17 07:15 Pulse Oximetry 96 10/08/17 07:15 Height and Weight: Height 6 ft 2 in Weight 91.5 kg Body Mass Index 26.6 - Medications Inpatient Medications: Current Medications Acetaminophen (Tylenol Supp) 650 mg WI Q5H PRN PRN Reason: Pain Aspirin (Asa) 81 mg PO DAILY [facility] Last Admin: 10/07/17 09:43 Dose: 81 mg Atorvastatin Calcium (Lipitor) 40 mg PO HS [facility] Last Admin: 10/07/17 20:00 Dose: 40 mg Benzonatate (Tessalon Perles) 100 mg PO TID PRN PRN Reason: Cough Calcium Carbonate (Tums) 1,000 mg PO Q4H PRN PRN Reason: Indigestion Last Admin: 10/07/17 09:42 Dose: 1,000 mg Cetirizine HCl (Zyrtec) 10 mg PO DAILY [facility] Last Admin: 10/07/17 09:43 Dose: 10 mg Ciprofloxacin (Cipro 500 Mg) 500 mg PO BID/E [facility] Last Admin: 10/08/17 07:32 Dose: Not Given Doxycycline Hyclate (Vibramycin) 100 mg PO BIDWM [facility] Last Admin: 10/08/17 07:34 Dose: Not Given Ferrous Sulfate (Feosol) 324 mg PO 1200,2100 [facility] Last Admin: 10/07/17 20:00 Dose: 324 mg Fluticasone Propionate (Flonase) 2 spray EA NOSTRIL BID [facility] Last Admin: 10/08/17 08:10 Dose: Not Given Guaifenesin (Mucinex La) 600 mg PO BID PRN PRN Reason: Congestion Dextrose/Sodium Chloride (D5-1/2ns) 1,000 mls @ 100 mls/hr IV .Q10H [facility] Last Infusion: 04/21/18 07:47 Dose: 100 mls/hr Lactated Ringer's (Lactated Ringers) 1,000 mls @ 75 mls/hr IV .[id number] [facility] Last Admin: 10/08/17 09:26 Dose: 75 mls/hr Insulin Aspart (Novolog) 1 - 5 unit SQ SS PRN; Protocol PRN Reason: Hyperglycemia Last Admin: 10/04/17 00:08 Dose: 1 unit Magnesium Oxide (Magox) 400 mg PO QID [facility] Last Admin: 10/08/17 08:10 Dose: Not Given Metformin HCl (Glucophage) 500 mg PO BIDWM [facility] Last Admin: 10/08/17 07:34 Dose: Not Given Metoclopramide HCl (Reglan) 10 mg PO ACHS [facility] Last Admin: 10/08/17 07:32 Dose: Not Given Metoprolol Succinate (Toprol Xl) 25 mg PO [facility] Last Admin: 10/07/17 20:00 Dose: 25 mg Mirtazapine (Remeron) 45 mg PO [facility] Last Admin: 10/07/17 20:01 Dose: 45 mg Morphine Sulfate (Morphine Sulfate Inj) 1 - 4 mg IVP Q2H PRN PRN Reason: Pain Multi-Ingredient Ointment (Eucerin) 1 applic TP DAILY [facility] Last Admin: 10/07/17 09:54 Dose: 1 applic Nystatin (Mycostatin) 1 applic TP BID [facility] Last Admin: 10/08/17 08:10 Dose: Not Given Ondansetron HCl (Zofran) 4 mg IVP Q6H PRN PRN Reason: Nausea &/or vomiting Oxybutynin Chloride (Ditropan Xl) 5 mg PO [facility] Last Admin: 10/07/17 20:01 Dose: 5 mg Pantoprazole Sodium (Protonix Tab) 40 mg PO ACB [facility] Last Admin: 10/08/17 07:32 Dose: Not Given Sertraline HCl (Zoloft) 100 mg PO DAILY [facility] Last Admin: 10/07/17 09:43 Dose: 100 mg Sodium Chloride (Iv Flush) 10 - 80 ml IVF PRN PRN PRN Reason: Flushing Last Admin: 10/07/17 09:42 Dose: 20 ml Tamsulosin HCl (Flomax) 0.4 mg PO [facility] Last Admin: 10/07/17 20:01 Dose: 0.4 mg Home Medications: Home Medications Medication Instructions Recorded Confirmed Type Atorvastatin Calcium 40 mg PO HS #0 09/18/15 10/01/17 History Fluticasone Propionate [Flonase 2 spray EA NOSTRIL BID #0 09/18/15 10/01/17 History Allergy Relief] Famotidine [Pepcid] 20 mg PO BID #0 03/24/16 10/01/17 History Ferrous Sulfate [Iron] 325 mg PO BIDWM #0 03/24/16 10/01/17 History Glucagon,Human Recombinant 1 mg INJ PRN PRN #0 03/24/16 10/01/17 History [Glucagon Emergency Kit] Aspirin 81 mg PO DAILY 10/01/17 10/01/17 History Benzonatate [Benzonatate] 100 mg PO TID PRN 10/01/17 10/01/17 History CALCIUM CARBONATE Chewable [Tums] 1,000 mg PO Q4H PRN 10/01/17 10/01/17 History Cetirizine [Zyrtec] 10 mg PO DAILY 10/01/17 10/01/17 History Ciprofloxacin HCl [Cipro] 500 mg PO BID 10/01/17 10/01/17 History Doxycycline Monohydrate 100 mg PO BID 10/01/17 10/01/17 History Eucerin Cream [Eucerin] 1 applicatio TP DAILY 10/01/17 10/01/17 History Hydrocodone/APAP 5/325 [Junior 1 tab PO Q5H PRN 10/01/17 10/01/17 History 5/325] Insulin Detemir [Levemir] 8 unit SQ HS 10/01/17 10/01/17 History Mag Hydrox/Aluminum Hyd/Simeth 30 ml PO PRN PRN 10/01/17 10/01/17 History [Alum-Mag Hydroxide-Simeth Liq] Magnesium 500 mg PO QID 10/01/17 10/01/17 History Metformin [Glucophage] 500 mg PO BIDWM 10/01/17 10/01/17 History Metoprolol Tartrate [Lopressor] 25 mg PO BIDWM 10/01/17 10/01/17 History Mirtazapine [Remeron] 45 mg PO HS 10/01/17 10/01/17 History Multivitamin [One Daily] 1 tab PO DAILY 10/01/17 10/01/17 History Nystatin [Nystop] 1 applicatio TOP BID 10/01/17 10/01/17 History Ondansetron HCl [Zofran] 4 mg PO Q6H PRN 10/01/17 10/01/17 History Oxybutynin XL [Ditropan Xl] 5 mg PO HS 10/01/17 10/01/17 History Sertraline [Zoloft] 100 mg PO DAILY 10/01/17 10/01/17 History Tamsulosin [Flomax] 0.4 mg PO DAILY 10/01/17 10/01/17 History Triamcinolone 0.1% Cream 15 G 1 applicatio TOP BID 10/01/17 10/01/17 History [Kenalog] guaiFENesin [Mucinex] 600 mg PO BID PRN 10/01/17 10/01/17 History Is Patient on Beta Ryan?: Yes - Medical History Respiratory: Reports: Asthma Cardiovascular: Reports: Hypertension, High Cholesterol, Other (PVD,cardiomegaly , orthostatic hypotension) Gastrointestional: Reports: Obstructive Bowel, Gastroesophageal Reflux Disease Renal/Endocrine: Reports: Diabetes Mellitus Type 2 Other History: Reports: Chemotherapy (Last txt on 09/12), Cancer (Colon CA dx'd in 2015) - Surgical History GI Surgery/Treatments: Reports: Colon Resection (colostomy), Hernia Repair ( More than 10 years ago), Other Anesthesia Reactions: None Hx Family Anesthesia Reaction: No History of Motion Sickness: No - Social History Smoking Status: Never smoker Hx Chewing Tobacco Use: No Substance Use Type: does not use Alcohol Intake Frequency: does not drink - Pertinent Findings Laboratory: CBC and BMP 10/08/17 04:03 10/08/17 04:03 BMP 10/08/17 04:03 Sodium 141 Potassium 3.9 Chloride 109 H Carbon Dioxide 29 BUN 13.0 Creatinine 0.8 Glucose 80 Calcium 7.9 L EKG: Sinus Rhythm - Physical Exam Respiratory Exam: Present: lungs clear, bilateral breath sounds equal Cardiovascular Exam: Present: regular rate and rhythm - Airway Assessment Mallampati Score: II TMD: 3 Fingerbreadths Neck Extension: good Overall Assessment: no airway concerns - ASA ASA Score: 3 - Plan Anesthesia: General Inhalation Gases - Discussion Discussion: Discussed risks/options/alternatives of anesthesia and questions answered. Patient consents. Nursing pain assessment noted. Present for Discussion: family member (sister, brother) Attestation Statement: Prior to the delivery of any anesthetic medication, I examined the patient, developed the plan, obtained the patient's consent and discussed the risk and benefits of the procedure with the patient/guardian. - Additional Information Seen by Anesthesia: Yes
--- NOTE | 2017-10-08 09:54 | Anesthesia Postoperative Note ---
- Date and Time Date: 10/08/17 Time: 09:54 - Status Patient Participated in Evaluation: Patient Participated in Person Vital Signs: Temperature 95.6 F L 10/08/17 07:15 Pulse Rate 61 10/08/17 07:15 Respiratory Rate 12 10/08/17 07:15 Blood Pressure 112/74 10/08/17 07:15 Pulse Oximetry 96 10/08/17 07:15 Respiratory Function: Airway Patent Cardiovascular Function: Regular Pulse EKG: Sinus Rhythm Mental Status: Alert and Oriented Pain Intensity: 0 Hydration: IV Infusing Complications During Recover: None Apparent - Follow-Up Instructions Instructions: Per Surgeon
--- NOTE | 2017-10-08 10:03 | General Surgery Procedure Note ---
Date of Procedure: 10/08/17 Surgeon: Hien Grease Renderer: Dimitris Alonzo APRN Postoperative Diagnosis: Small bowel obstruction Procedure: Exploratory laparotomy with lysis of adhesions and creation of omental rotation flap patch Estimated Blood Loss: See Anesthesia Record. Pathology: none sent
[2017-10-08] MEDS: MORPHINE SULFATE 10 MG/ML VIAL IVP PRN ×3 (10:14→10:35)
[2017-10-08] MEDS ORDERED: METOCLOPRAMIDE 10mg/2ml INJECTION IVP PRN (10:21)
[2017-10-08] MEDS ORDERED: MORPHINE PCA 30 MG/30 ML SYRINGE IV PRN (10:21)
[2017-10-08] MEDS ORDERED: TPN - PHARMACY CONSULT MC ONE (10:21)
[2017-10-08] MEDS ORDERED: MULTI-VIT INFUSION 10 ML, MULTI-TRACE ELEMENTS 1 ML in TPN - STANDARD FORMULA 2,000 ML IV SCH (10:21)
[2017-10-08] MEDS: D5-1/2NS with KCL 20mEq 1,000 ML IV SCH (10:56)
--- NOTE | 2017-10-08 10:59 | Pharmacy Consult-TPN/PPN ---
Pharmacy Consult-TPN/PPN - Laboratory Information Chemistry Turbidity < 20 (0-20) 10/08/17 04:03 Sodium 141 MEQ/L (134-144) 10/08/17 04:03 Potassium 3.9 MEQ/L (3.6-5) 10/08/17 04:03 Chloride 109 MEQ/L (98-107) H 10/08/17 04:03 Carbon Dioxide 29 MEQ/L (22-30) 10/08/17 04:03 Anion Gap 3 meq/L (5-15) L 10/08/17 04:03 BUN 13.0 MG/DL (9-20) 10/08/17 04:03 Creatinine 0.8 mg/dL (0.8-1.5) 10/08/17 04:03 GFR Calculation 97 10/08/17 04:03 BUN/Creatinine Ratio 16 RATIO (6-26) 10/08/17 04:03 Glucose 80 MG/DL (75-110) 10/08/17 04:03 Glucometer 181 mg/dL (65-110) 10/08/17 09:47 Calculated Osmolality 270 MOSM/KG (261-280) 10/08/17 04:03 Calcium 7.9 MG/DL (8.4-10.2) L 10/08/17 04:03 Phosphorus 3.0 MG/DL (2.5-4.5) 10/03/17 04:03 Magnesium 1.8 MG/DL (1.6-2.3) 10/08/17 04:03 Total Bilirubin 1.00 MG/DL (0.20-1.30) 10/01/17 14:31 Icterus Index < 2 (0-7) 10/08/17 04:03 AST 22 U/L (17-59) 10/01/17 14:31 ALT 19 U/L (1-50) 10/01/17 14:31 Alkaline Phosphatase 99 U/L (38-126) 10/01/17 14:31 Total Protein 5.5 g/dL (6.3-8.2) L 10/01/17 14:31 Albumin 1.9 g/dL (3.5-5.0) L 10/03/17 04:03 Globulin 2.5 G/DL (2.4-3.6) 10/01/17 14:31 Albumin/Globulin Ratio 1.2 RATIO (1.1-2.2) 10/01/17 14:31 Lipase 38 U/L (23-300) 10/01/17 14:31 Specimen Hemolysis < 15 (0-25) 10/08/17 04:03 Intake and Output 10/07/17 10/08/17 10/09/17 06:59 06:59 06:59 Intake Total 1760 / 1760 790 / 790 1246.667 / 1246.667 Output Total 1750 / 1750 2085 / 2085 Balance -1295 / -1295 1246.667 / 1246.667 Weight 94.3 kg 92.1 kg 91.5 kg Intake: IV 200 / 200 1246.667 / 1246.667 D5-1/2Ns 1,000 ml @ 100 mls/hr 146.667 / 146.667 IV .Q10H [facility] Rx#:[id number] Ertapenem 1 g In Ns 100 ml @ 100 / 100 200 mls/hr IV DAILY [facility] Rx#: [id number] Lr 1,000 ml @ 75 mls/hr IV . 1000 / 1000 [id number] [facility] Rx#:[id number] MAGNESIUM SULFATE 1gm PREMIX 1 200 / 200 gm In 100 ml @ 100 mls/hr IV Q1H [facility] Rx#:[id number] Oral 1760 / 1760 590 / 590 Output: Urine 1225 / 1225 1025 / 1025 Stool 525 / 525 660 / 660 Gastric Drainage 400 / 400 Left Nare 400 / 400 Other: Urine Appearance Clear Clear Urethral Clear Urine Color Yellow Pale Yellow Urethral Yellow Urine Odor Normal Normal Stool Color Brown Brown Green Stool Consistency Liquid Soft Liquid Size of Bowel Movement Moderate TPN THERAPY: DAY 1 Will start CUSTOM TPN FORMULA today (Standard Formula still unavailable due to national shortage) Amino Acids 8.5% 1000ml Dextrose 50% 1000ml Sodium Chloride 40mEq per bag Potassium Phosphate 40mEq per bag Magnesium Sulfate 15mEq per bag Calcium Gluconate 9.3mEq per bag Multiple Vitamin 10ml Multiple Trace Elements 1ml Pt has Port-A-Cath. D5-1/2NS with 20mEq KCL is currently running at 50ml/hr. Will leave that running for today. Will start TPN at 60ml/hr = gives total fluid of 2800ml + per day. Fat Emulsion 20% 100ml, one bag daily given starting today to prevent EFAD and add calories. Total calorise is approximately 1400 per day. Sliding Scale insulin order is active. Current electrolytes are acceptable. Thank you
[2017-10-08] MEDS: ASPIRIN 81 MG CHEWABLE TABLET PO SCH (12:00)
[2017-10-08] MEDS: EUCERIN CREAM 57gm TP SCH (12:00)
[2017-10-08] MEDS: SERTRALINE 100 MG TABLET PO SCH (12:00)
[2017-10-08] MEDS: CETIRIZINE 10 MG TABLET PO SCH (12:00)
[2017-10-08] MEDS: FERROUS SULFATE 324 MG TABLET PO SCH ×2 (12:04→20:25)
--- NOTE | 2017-10-08 12:44 | Progress Note ---
- Date 10/08/17 Subjective: F/U: Small bowel obstruction Tolerated surgery well. Notes ab pain-crampy/bloating. Minimal nausea. No mouth pain. Breathing feels okay-not SOA or congested. Denies pain with breathing, but respirations shallow. Objective Vital signs: Temperature 97.0 F 10/08/17 10:50 Pulse Rate 87 10/08/17 12:15 Respiratory Rate 88 H 10/08/17 12:15 Blood Pressure 131/77 10/08/17 12:15 Pulse Oximetry 98 10/08/17 12:15 Rhythm: Normal Sinus Rhythm, Third Degree AV Block Height/Weight/BMI: Height 1.88 m Weight 91.5 kg Body Mass Index 26.6 - Constitutional Present: well nourished, well developed, average body habitus, cooperative - Routine HEENT Exam Head: Present: normocephalic, atraumatic Eye: Present: EOMI, PERRL, normal accommodation - Routine Respiratory Exam Present: decreased breath sounds. Absent: rales, respiratory distress, rhonchi , wheezes - Routine Cardiovascular Exam Present: RRR, no murmur - Routine Abdominal Exam Present: tenderness. Absent: normoactive bowel sounds - Routine Extremities Exam Present: no edema, pulses intact. Absent: cyanosis, clubbing - Routine Musculoskeletal Exam Musculoskeletal: Present: no clubbing or cyanosis, normal strength - Routine Skin Exam Present: dry, warm - Routine Neurological Exam Present: alert, oriented X3, CN II-XII intact, moving all extremities, vision grossly intact, hearing grossly intact, normal speech. Absent: motor deficit, altered mental status - Routine Psychiatric Exam Present: normal affect, normal thought process, cooperative. Absent: agitated Results - Labs CBC & Chem 7: 10/08/17 04:03 10/08/17 10:40 Assessment and Plan (1) Small bowel obstruction Current visit: Yes Status: Acute Assessment and Plan: Assessment High-grade small bowel obstruction with transition level distal of the distal ileum possibly secondary to scarring at the presacral level. S/P Exploratory laparotomy with lysis of adhesions and creation of omental rotation flap patch - 10/08/17 Dehydration - resolved Rectal cancer - Dr. 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 Encourage IS for pulmonary toilet. Continue TPN until GI function improves. Pain control with TERMINAL BLOCK ASSEMBLER. Monitor lab. Case discussed with CCU nursing. Time spent with patient care 25 minutes. DVT Prophylaxis: SCD's, Lovenox Resuscitation Status: Full Code - Time spent with patient Time with patient PN: 25 minutes - Physician Narrative Physician: Yosvany Ulrich MD Narrative: Date: 10/08/17 Time: 1240 Hospital Course Summary Disclaimer: The visit summary below is not to be considered part of the above Progress Note. Hospital Course: 10/01/17 - Hospital admission Admit, observation for SBO NG tube placed in ER with drainage of 850cc's gastric fluid Morphine IV PRN pain, Zofran IV PRN nausea NPO, pantoprazole IV daily; replace magnesium Tele (had a brief run of PAT during recent hosp stay) Hold all home medications Surgical consult placed SCD's for DVT prophylaxis Code staus - full code Care to return to Dr. Rosa on dismissal. 10/02/17 Continue NGT. RN to confirm placement. Assess KUB once NGT advanced. Surgery consulted- high grade bowel obstruction. Continue IVF, will add potassium as it is trending down. Magnesium replaced, normalized. BG is controlled with insulin held. Recent PAT- on metoprolol succinate for rate control. Continue to monitor blood counts closely- neutropenia, mild anemia. Continue supportive care. Follow labs closely. Pain is minimal. 10/03/17 Continue NGT/NPO. Continues to have fairly large amount of gastric drainage, but he had large BM this morning. Awaiting Dr. Stanford's recommendations -- anticipate conservative management. WBC up to 4.3. Hgb decreased to 10.3, but suspect this drop is heavily dilutional. K is still 3.5 - continue IVF with KCl. Mg decreased to 1.5 and IV bolus has been ordered. 10/04/17 Had large and copious results from Gastrografin small bowel follow through, abd soft, non-tender, denies nausea. Will discuss with Dr. Stanford. 10/05/[address] Espino surgical consultation. Tolerating liquid diet- Will advance as tolerated. He is having good stool output ostomy. Mild Hypokalemia today- replace orally. Continue to monitor blood sugars as they have been well controlled on metformin and sliding scale. Continue with Reglan scheduled to help her GI motility. Clinically improving. Will monitor patient today and be sure that he tolerates diet advancement. 10/06/17 - Hien Radiographically, it does appear that he has a significant high-grade partial small bowel obstruction. Clinically, however, he is tolerating a regular diet without difficulty and is having good output of his colostomy. At this time I would recommend that we continue to follow him more so from a clinical standpoint than that of a radiographic standpoint. If, tomorrow, he still remains without any onset of nausea or vomiting or recurrent abdominal pain, I would go ahead and discharge him to home. I would not be surprised, however, if in the future he would develop recurrent problems requiring readmission. Ultimately, it is my intuition that we may be "forced" to proceed with surgical intervention. I do feel, however, that surgery would be complicated given his prior history for radiation and abdominoperineal resection. At this time would not recommend surgical intervention unless he would have ongoing recurrent symptomatology as discussed above. 10/07/[address] Stanford. He examined the pt this afternoon and the pt complained of more abdominal pain. His abdomen is more distended and taut. He is going to proceed with surgery in the morning. 10/08/17 OP Day: Exploratory laparotomy with lysis of adhesions and creation of omental rotation flap patch Continue supportive post op care. Encourage IS for pulmonary toilet. Continue TPN until GI function improves. Pain control with TERMINAL BLOCK ASSEMBLER. Monitor lab.
--- NOTE | 2017-10-08 13:00 | Operative Note ---
DATE OF SERVICE 10/08/2017 SURGEON Dutch Stanford MD SPRING FITTER HELPER Dimitris Alonzo APRN PREOPERATIVE DIAGNOSIS Recurrent small-bowel obstruction. POSTOPERATIVE DIAGNOSIS Recurrent small-bowel obstruction. PROCEDURE Exploratory laparotomy, lysis of adhesions, creation of omental pedicle. ANESTHESIA General endotracheal. EBL/FLUIDS Please see chart. BRIEF HISTORY/INDICATIONS Mr. Avila is a 67-year-old gentleman who is known to my surgical practice. I have performed a robotic- assisted laparoscopic abdominal perineal resection upon the patient in the past as a result of invasive adenocarcinoma involving the rectum. The patient has been recently hospitalized as a result of a high- grade partial small-bowel obstruction. Patient was attempted to be managed nonoperatively. Unfortunately, just prior to discharge the patient once again developed severe abdominal pain and increasing abdominal distention. It was therefore recommended to the patient that he undergo surgical intervention. For completeness please refer to notes included in the patient's chart. FINDINGS Upon laparotomy the patient was found to have a loop of small bowel deep within the pelvis that was densely adhered, resulting in a small-bowel obstruction. Small bowel proximal this was massively dilated. Small bowel distal to this was collapsed. The portion of bowel within the pelvis was perhaps about 15-20 cm proximal to the ileocecal valve region. The liver was smooth without nodularities. Gallbladder was normal in its appearance. Stomach was without palpable abnormalities. Colon was also without palpable abnormalities. The small bowel was able to be delivered up into the abdominal cavity. A small serosal tear occurred which would be considered to be inherent to the risk of the procedure. To prevent recurrent adherence of the small bowel deep within the pelvis an omental pedicle was created and omentum was placed within the pelvis and secured circumferentially. NARRATIVE OF PROCEDURE After informed consent was obtained the patient was brought to the operative suite and placed on the table in supine fashion. Abdomen was prepped and draped in sterile fashion. Formal time-out was then completed. A standard midline incision was then made from just above the pubic symphysis up to and into the epigastric region. Underlying subcutaneous tissues, fascia and peritoneum were opened to the extent of the incision. Abdominal cavity was explored. Findings were as noted above. Liver was smooth without nodularities. Small bowel was massively dilated about 5-6 cm beyond the ligament of Treitz down to a segment of the small bowel densely adhered within the pelvis. Colon was without palpable abnormalities. Small bowel contents were advanced in a retrograde fashion back up into the stomach, resulting in decompression of the bowel and better visualization. The patient was placed in reverse Trendelenburg position. The segment of small bowel discussed above that was densely adherent within the deep pelvis following his abdominoperineal resection was able to be bluntly and sharply dissected out. This did result in a small serosal tear. This small serosal tear was closed transversely by placing multiple single sutures of 3-0 Vicryl. This did not result in any narrowing of the lumen of the small bowel. Small bowel contents were able to be advanced up to this area. I had my assistant terminal manager grasp the bowel distal to the repair. There was no evidence of extravasation of small bowel contents through the repair. Small bowel contents were easily advanced through this area and into the cecum without difficulty. Next, I elected to create an omental pedicle and place within the pelvis to prevent recurrent small-bowel obstruction. The patient had fortunately a fair amount of omentum. The omentum was divided along its left lateral aspect back towards the midline portion of the omentum. This allowed for a pedicle to be created. The pedicle was actually placed along the right pericolic gutter. The right colon itself was not as adhered as one typically sees along the right pericolic gutter and the omental pedicle was actually able to be laid behind the cecum and laid into the pelvis. This occupied the majority of the deep pelvis for the rectum had been resected previously. This omental pedicle was then imbricated circumferentially by placing several simple interrupted sutures of 3-0 Vicryl through the omentum as well as obtaining a small purchase of the lateral pelvic sidewall, sacrum, and anteriorly as well. Next, the prior areas of dissection were inspected and found to be hemostatic in nature. Instrument, sponge and needle counts were performed and found to be correct. Fascia was closed in a running fashion with #1 PDS suture. Skin and subcutaneous tissues were then irrigated with Betadine solution. Additionally, it should be noted that the patient was found to have a small umbilical hernia. Fascial defect was resected at the base of the umbilicus. The base of the umbilicus was dissected off the hernia sac itself. The hernia sac and the fascial defect were excised prior to closure of the fascia. Once the fascia had been closed as discussed above with #1 PDS suture, the base of the umbilicus was then once again imbricated to underlying fascia. This was accomplished by obtaining a small purchase of the base of the umbilicus in a subcuticular fashion followed by a small purchase of the fascia just to the right of the fascial closure. Skin was then closed with gigi. The patient tolerated the procedure without difficulty and is in the process of awakening his anesthetic and will be sent back to the recovery once deemed in stable condition. Additionally, it should be noted that Dimitris Alonzo APRN, was present throughout the entire case and played a pivotal role in providing assistance and exposure during the course of the procedure. SARA
[2017-10-08] MEDS ORDERED: [UNRECOGNIZED DRUG - OTHER] IV SCH (14:00)
[2017-10-08] MEDS ORDERED: POTASSIUM PHOSPHATE IV SCH (14:00)
[2017-10-08] MEDS ORDERED: SODIUM CHLORIDE IV SCH (14:00)
[2017-10-08] MEDS ORDERED: FAT EMULSION 20% 100 ML BAG IV SCH (16:00)
[2017-10-08] MEDS: FAT EMULSION 20% 100 ML IV SCH (16:39)
[2017-10-08] MEDS: INSULIN ASPART 100unit/ml INJECTION SQ PRN ×2 (16:43→23:30)
[2017-10-08] MEDS: ATORVASTATIN 40 MG TABLET PO SCH (20:27)
[2017-10-08] MEDS: MIRTAZAPINE 45 MG TABLET PO SCH (20:27)
[2017-10-08] MEDS: TAMSULOSIN 0.4 MG CAPSULE PO SCH (20:28)
[2017-10-08] MEDS ORDERED: INSULIN DETEMIR 100unit/ml INJECTION SQ SCH (21:00)
[2017-10-09] MEDS: INSULIN ASPART 100unit/ml INJECTION SQ PRN ×2 (04:39→18:11)
--- NOTE | 2017-10-09 07:10 | Pharmacy Consult-TPN/PPN ---
Pharmacy Consult-TPN/PPN - Laboratory Information Chemistry Turbidity < 20 (0-20) 10/09/17 04:30 Sodium 138 MEQ/L (134-144) 10/09/17 04:30 Potassium 3.8 MEQ/L (3.6-5) 10/09/17 04:30 Chloride 104 MEQ/L (98-107) 10/09/17 04:30 Carbon Dioxide 29 MEQ/L (22-30) 10/09/17 04:30 Anion Gap 5 meq/L (5-15) 10/09/17 04:30 BUN 12.0 MG/DL (9-20) 10/09/17 04:30 Creatinine 0.7 mg/dL (0.8-1.5) L 10/09/17 04:30 GFR Calculation 113 10/09/17 04:30 BUN/Creatinine Ratio 17 RATIO (6-26) 10/09/17 04:30 Glucose 218 MG/DL (75-110) H 10/09/17 04:30 Glucometer 228 mg/dL (65-110) 10/09/17 04:34 Calculated Osmolality 273 MOSM/KG (261-280) 10/09/17 04:30 Calcium 7.7 MG/DL (8.4-10.2) L 10/09/17 04:30 Phosphorus 3.0 MG/DL (2.5-4.5) 10/08/17 10:40 Magnesium 1.5 MG/DL (1.6-2.3) L 10/08/17 10:40 Total Bilirubin 0.40 MG/DL (0.20-1.30) 10/08/17 10:40 Icterus Index < 2 (0-7) 10/09/17 04:30 AST 21 U/L (17-59) 10/08/17 10:40 ALT 16 U/L (1-50) 10/08/17 10:40 Alkaline Phosphatase 72 U/L (38-126) 10/08/17 10:40 Total Protein 4.5 g/dL (6.3-8.2) L 10/08/17 10:40 Albumin 2.1 g/dL (3.5-5.0) L 10/08/17 10:40 Globulin 2.4 G/DL (2.4-3.6) 10/08/17 10:40 Albumin/Globulin Ratio 0.9 RATIO (1.1-2.2) L 10/08/17 10:40 Lipase 38 U/L (23-300) 10/01/17 14:31 Specimen Hemolysis < 15 (0-25) 10/09/17 04:30 Intake and Output 10/08/17 10/09/17 10/10/17 06:59 06:59 06:59 Intake Total 790 / 790 2467.000 / 2467.000 Output Total 2084 / 5 1538 / 1538 Balance -1295 / -1295 929.000 / 929.000 Weight 92.1 kg 91.5 kg Intake: IV 200 / 200 2467.000 / 2467.000 D5-1/2NS with KCL 20mEq 1,000 403.333 / 403.333 ml @ 50 mls/hr IV .Q20H [facility] Rx# :[id number] D5-1/2Ns 1,000 ml @ 100 mls/hr 146.667 / 146.667 IV .Q10H [facility] Rx#:[id number] Ertapenem 1 g In Ns 100 ml @ 100 / 100 200 mls/hr IV DAILY ONE Rx#: [id number] Fat Emulsion 20% 100 ml @ 100 100 / 100 mls/hr IV 1600 [facility] Rx#: [id number] Lr 1,000 ml @ 75 mls/hr IV . 1425 / 1425 [id number] [facility] Rx#:[id number] MAGNESIUM SULFATE 1gm PREMIX 1 200 / 200 gm In 100 ml @ 100 mls/hr IV Q1H [facility] Rx#:[id number] Sodium Chloride Conc 40 meq 292 / 292 POTASSIUM PHOSPHATE (mEq) 40 meq Magnesium Sulfate Inj 16 meq Calcium Gluconate 9.3 meq Multi-Vit Infusion 10 ml Multi -Trace Elements 1 ml In TPN - Custom Formula 2,000 ml @ 60 mls/hr IV .Q24H [facility] Rx#: [id number] Oral 590 / 590 Output: Urine 1025 / 1025 Stool 660 / 660 Urine Amount (Catheter) 1338 / 1338 Gastric Drainage 400 / 400 200 / 200 Left Nare 400 / 400 200 / 200 Other: Urine Appearance Clear Clear Urethral Clear Urine Color Pale Dark Yellow Yellow Urethral Yellow Urine Odor Normal Stool Color Brown Stool Consistency Soft Liquid TPN THERAPY: DAY 2 TPN CUSTOM FORMULA infusing at 60ml/hr via Port-A-Cath. Will continue the same formula for today as follows: Amino Acids 8.5% 1000ml Dextrose 50% 1000ml Sodium Chloride 40mEq per bag Potassium Phosphate 40mEq per bag Magnesium Sulfate 15mEq per bag Calcium Gluconate 9.3mEq per bag Multiple Vitamin 10ml Multiple Trace Elements 1ml Pt still has D5-1/2NS with 20mEq KCL is infusing at 50ml/hr. OK to continue it. Will increase TPN rate to 85ml/hr with todays bag = gives total fluid of 3300ml + per day. Fat Emulsion 20% 100ml, one bag daily given starting today to prevent EFAD and add calories. Increase in TPN rate will increase Total calories approximately 1960. Currently on Low Dose Correctional Dose Insulin. Glucoses running a little high. Might have to increase to "Medium Dose" insulin. Will watch. Current electrolytes are WNL's.
[2017-10-09] MEDS: SERTRALINE 100 MG TABLET PO SCH (08:03)
[2017-10-09] MEDS: CETIRIZINE 10 MG TABLET PO SCH (08:03)
[2017-10-09] MEDS: ASPIRIN 81 MG CHEWABLE TABLET PO SCH (08:03)
[2017-10-09] MEDS: D5-1/2NS with KCL 20mEq 1,000 ML IV SCH (08:05)
[2017-10-09] MEDS: PANTOPRAZOLE 40 MG INJECTION IVP SCH (08:05)
[2017-10-09] MEDS: ENOXAPARIN 40 MG/0.4 ML INJECTION SQ SCH (08:10)
[2017-10-09] MEDS: FLUTICASONE NASAL SPRAY 50mcg EA NOSTRIL SCH ×2 (08:10→21:14)
[2017-10-09] MEDS: EUCERIN CREAM 57gm TP SCH (08:11)
[2017-10-09] MEDS ORDERED: ERTAPENEM 1 G in NS 100 ML IV SCH (09:00)
[2017-10-09] MEDS ORDERED: INSULIN DETEMIR 100unit/ml INJECTION SQ ONE (11:43)
--- NOTE | 2017-10-09 11:49 | Progress Note ---
- Date 10/09/17 Subjective: F/U: Small bowel obstruction Feeling better-less ab pain. Notes incisional discomfort. No nausea. No flatus. Breathing stable-no having cough/congestion. No f/c. Objective Vital signs: Temperature 97.1 F 10/09/17 07:16 Pulse Rate 71 10/09/17 11:42 Respiratory Rate 42 H 10/09/17 10:15 Blood Pressure 142/78 H 10/09/17 11:42 Pulse Oximetry 97 10/09/17 11:42 Rhythm: Normal Sinus Rhythm, Third Degree AV Block Height/Weight/BMI: Height 1.88 m Weight 94 kg Body Mass Index 26.6 - Constitutional Present: well nourished, well developed, average body habitus, cooperative - Routine HEENT Exam Head: Present: normocephalic, atraumatic Eye: Present: EOMI, PERRL ENT: Present: mucous membranes moist - Routine Respiratory Exam Present: CTA bilaterally. Absent: rales, respiratory distress, rhonchi, stridor , wheezes - Routine Cardiovascular Exam Present: RRR, no murmur - Routine Abdominal Exam Present: soft, non distended. Absent: normoactive bowel sounds (Decreased) - Routine Extremities Exam Present: no edema, pulses intact. Absent: cyanosis, clubbing - Routine Musculoskeletal Exam Musculoskeletal: Present: no clubbing or cyanosis - Routine Skin Exam Present: dry, warm - Routine Neurological Exam Present: alert, oriented X3, CN II-XII intact, moving all extremities, vision grossly intact, hearing grossly intact, normal speech. Absent: motor deficit, altered mental status - Routine Psychiatric Exam Present: normal affect, normal thought process, cooperative. Absent: anxious, agitated Results - Labs CBC & Chem 7: 10/09/17 04:30 10/09/17 04:30 Assessment and Plan (1) Small bowel obstruction Current visit: Yes Status: Acute Assessment and Plan: Assessment High-grade small bowel obstruction with transition level distal of the distal ileum possibly secondary to scarring at the presacral level. S/P Exploratory laparotomy with lysis of adhesions and creation of omental rotation flap patch - 10/08/17 Dehydration - resolved Rectal cancer - Dr. 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 Will give 5 units Levemir and increase evening dose to 12 units. Sugars with elevation due to TPN for nutritional support. NG tube clamped by Dr Stanford. Monitor for increased nausea/ab bloating. Encourage IS for pulmonary toilet. Will have nursing ambulate patient TID to help improve strength and promote bowel function. Monitor lab. Transfer to surgical floor for continuation of care. Case discussed with CCU nursing. Time spent with patient care 25 minutes. DVT Prophylaxis: SCD's, Lovenox Resuscitation Status: Full Code - Time spent with patient Time with patient PN: 25 minutes - Physician Narrative Physician: Yosvany Ulrich MD Narrative: Date: 10/09/17 Time: 1146 Hospital Course Summary Disclaimer: The visit summary below is not to be considered part of the above Progress Note. Hospital Course: 10/01/17 - Hospital admission Admit, observation for SBO NG tube placed in ER with drainage of 850cc's gastric fluid Morphine IV PRN pain, Zofran IV PRN nausea NPO, pantoprazole IV daily; replace magnesium Tele (had a brief run of PAT during recent hosp stay) Hold all home medications Surgical consult placed SCD's for DVT prophylaxis Code staus - full code Care to return to Dr. Rosa on dismissal. 10/02/17 Continue NGT. RN to confirm placement. Assess KUB once NGT advanced. Surgery consulted- high grade bowel obstruction. Continue IVF, will add potassium as it is trending down. Magnesium replaced, normalized. BG is controlled with insulin held. Recent PAT- on metoprolol succinate for rate control. Continue to monitor blood counts closely- neutropenia, mild anemia. Continue supportive care. Follow labs closely. Pain is minimal. 10/03/17 Continue NGT/NPO. Continues to have fairly large amount of gastric drainage, but he had large BM this morning. Awaiting Dr. Stanford's recommendations -- anticipate conservative management. WBC up to 4.3. Hgb decreased to 10.3, but suspect this drop is heavily dilutional. K is still 3.5 - continue IVF with KCl. Mg decreased to 1.5 and IV bolus has been ordered. 4/17/18 Had large and copious results from Gastrografin small bowel follow through, abd soft, non-tender, denies nausea. Will discuss with Dr. Stanford. 10/05/[address] Espino surgical consultation. Tolerating liquid diet- Will advance as tolerated. He is having good stool output ostomy. Mild Hypokalemia today- replace orally. Continue to monitor blood sugars as they have been well controlled on metformin and sliding scale. Continue with Reglan scheduled to help her GI motility. Clinically improving. Will monitor patient today and be sure that he tolerates diet advancement. 10/06/17 - Hien Radiographically, it does appear that he has a significant high-grade partial small bowel obstruction. Clinically, however, he is tolerating a regular diet without difficulty and is having good output of his colostomy. At this time I would recommend that we continue to follow him more so from a clinical standpoint than that of a radiographic standpoint. If, tomorrow, he still remains without any onset of nausea or vomiting or recurrent abdominal pain, I would go ahead and discharge him to home. I would not be surprised, however, if in the future he would develop recurrent problems requiring readmission. Ultimately, it is my intuition that we may be "forced" to proceed with surgical intervention. I do feel, however, that surgery would be complicated given his prior history for radiation and abdominoperineal resection. At this time would not recommend surgical intervention unless he would have ongoing recurrent symptomatology as discussed above. 10/07/[address] Stanford. He examined the pt this afternoon and the pt complained of more abdominal pain. His abdomen is more distended and taut. He is going to proceed with surgery in the morning. 10/08/17 OP Day: Exploratory laparotomy with lysis of adhesions and creation of omental rotation flap patch Continue supportive post op care. Encourage IS for pulmonary toilet. Continue TPN until GI function improves. Pain control with SCABBLER. Monitor lab. 10/09/17 POD #1 Blood sugars with elevation despite starting Levemir 8 units last night. Will give 5 units Levemir and increase evening dose to 12 units. Sugars with elevation due to TPN for nutritional support. NG tube clamped by Dr Stanford. Monitor for increased nausea/ab bloating. Encourage IS for pulmonary toilet. Will have nursing ambulate patient TID to help improve strength and promote bowel function. Monitor lab. Transfer to surgical floor for continuation of care.
[2017-10-09] MEDS: FERROUS SULFATE 324 MG TABLET PO SCH ×2 (12:09→21:12)
[2017-10-09] MEDS: CALCIUM CARBONATE Chewable 500mg TABLET PO PRN (12:49)
[2017-10-09] MEDS ORDERED: SODIUM CHLORIDE IV SCH (14:00)
[2017-10-09] MEDS ORDERED: [UNRECOGNIZED DRUG - OTHER] IV SCH (14:00)
[2017-10-09] MEDS ORDERED: POTASSIUM PHOSPHATE IV SCH (14:00)
[2017-10-09] MEDS: FAT EMULSION 20% 100 ML IV SCH (15:14)
[2017-10-09] MEDS: INSULIN DETEMIR 100unit/ml INJECTION SQ SCH (21:10)
[2017-10-09] MEDS: ATORVASTATIN 40 MG TABLET PO SCH (21:11)
[2017-10-09] MEDS: MIRTAZAPINE 45 MG TABLET PO SCH (21:12)
[2017-10-09] MEDS: TAMSULOSIN 0.4 MG CAPSULE PO SCH (21:12)
[2017-10-09] MEDS: KETOROLAC 30 MG/ML INJECTION IVP PRN (21:20)
[2017-10-09] MEDS: SALINE FLUSH 10ml SYRINGE IVF PRN (21:28)
[2017-10-10] MEDS: INSULIN ASPART 100unit/ml INJECTION SQ PRN ×4 (00:38→23:53)
[2017-10-10] MEDS: SALINE FLUSH 10ml SYRINGE IVF PRN (04:10)
[2017-10-10] MEDS: D5-1/2NS with KCL 20mEq 1,000 ML IV SCH ×2 (05:39→23:52)
--- NOTE | 2017-10-10 08:06 | Pharmacy Consult-TPN/PPN ---
Pharmacy Consult-TPN/PPN - Laboratory Information Chemistry Turbidity < 20 (0-20) 10/10/17 04:07 Sodium 136 MEQ/L (134-144) 10/10/17 04:07 Potassium 3.5 MEQ/L (3.6-5) L 10/10/17 04:07 Chloride 105 MEQ/L (98-107) 10/10/17 04:07 Carbon Dioxide 27 MEQ/L (22-30) 10/10/17 04:07 Anion Gap 4 meq/L (5-15) L 10/10/17 04:07 BUN 11.0 MG/DL (9-20) 10/10/17 04:07 Creatinine 0.6 mg/dL (0.8-1.5) L 10/10/17 04:07 GFR Calculation 135 10/10/17 04:07 BUN/Creatinine Ratio 18 RATIO (6-26) 10/10/17 04:07 Glucose 173 MG/DL (75-110) H 10/10/17 04:07 Glucometer 193 mg/dL (65-110) 10/10/17 05:41 Calculated Osmolality 265 MOSM/KG (261-280) 10/10/17 04:07 Calcium 7.2 MG/DL (8.4-10.2) L 10/10/17 04:07 Phosphorus 3.2 MG/DL (2.5-4.5) 10/10/17 04:07 Magnesium 1.7 MG/DL (1.6-2.3) 10/10/17 04:07 Total Bilirubin 0.20 MG/DL (0.20-1.30) 10/10/17 04:07 Icterus Index < 2 (0-7) 10/10/17 04:07 AST 17 U/L (17-59) 10/10/17 04:07 ALT 10 U/L (1-50) 10/10/17 04:07 Alkaline Phosphatase 52 U/L (38-126) D 10/10/17 04:07 Total Protein 4.0 g/dL (6.3-8.2) L 10/10/17 04:07 Albumin 1.8 g/dL (3.5-5.0) L 10/10/17 04:07 Globulin 2.2 G/DL (2.4-3.6) L 10/10/17 04:07 Albumin/Globulin Ratio 0.8 RATIO (1.1-2.2) L 10/10/17 04:07 Lipase 38 U/L (23-300) 10/01/17 14:31 Specimen Hemolysis < 15 (0-25) 10/10/17 04:07 Intake and Output 10/09/17 10/10/17 10/11/17 06:59 06:59 06:59 Intake Total 3063.667 / 3063.667 1250.000 / 1250.000 Output Total 1538 / 1538 1445 / 1445 Balance 1525.667 / 1525.667 -195.000 / -195.000 Weight 91.5 kg 94 kg Intake: IV 3063.667 / 3063.667 1200.000 / 1200.000 D5-1/2NS with KCL 20mEq 1,000 1000.000 / 4084.618 3505.000 / 1000.000 ml @ 50 mls/hr IV .Q20H JYOTI Rx# :[id number] D5-1/2Ns 1,000 ml @ 100 mls/hr 146.667 / 146.667 IV .Q10H JYOTI Rx#:[id number] Ertapenem 1 g In Ns 100 ml @ 100 / 100 100 / 100 200 mls/hr IV DAILY JYOTI Rx#: [id number] Fat Emulsion 20% 100 ml @ 100 100 / 100 100 / 100 mls/hr IV 1600 JYOTI Rx#: [id number] Lr 1,000 ml @ 75 mls/hr IV . 1425 / 1425 [id number] JYOTI Rx#:[id number] Sodium Chloride Conc 40 meq 292 / 292 POTASSIUM PHOSPHATE (mEq) 40 meq Magnesium Sulfate Inj 16 meq Calcium Gluconate 9.3 meq Multi-Vit Infusion 10 ml Multi -Trace Elements 1 ml In TPN - Custom Formula 2,000 ml @ 60 mls/hr IV .Q24H JYOTI Rx#: [id number] Oral 50 / 50 Output: Urine Amount (Catheter) 1338 / 1338 1445 / 1445 Gastric Drainage 200 / 200 Left Nare 200 / 200 Other: Urine Appearance Clear Clear Urethral Clear Urine Color Dark Yellow Straw Urethral Yellow Urine Odor Normal - Consult Information Adding 40meq of potassium (as acetate) and 20meq of sodium (as chloride) to today's formula. Will continue to monitor. Thank you.
--- NOTE | 2017-10-10 08:33 | Progress Note ---
DATE 10/09/2017 FINDINGS Mr. Avila was seen this morning on rounds. He was requesting something to eat and drink. He was having some incisional discomfort. OBJECTIVE VITALS: Afebrile. Normotensive. Please refer to EMR. ABDOMEN: Soft. Minimal incisional tenderness present. No stool or air present within colostomy. LABORATORY/RADIOGRAPHIC EVALUATION The patient had a CBC today and his white count is 6000. Hemoglobin 11.2. BMP obtained and found to be essentially within normal limits. ASSESSMENT 67-year-old gentleman status post exploratory laparotomy, lysis of adhesions, creation of omental pedicle to fill void within pelvis. Patient doing well. PLAN Will continue with current care. Will go ahead and clamp NG today and give him some sips and chips. Will place back to low intermittent suction if he develops nausea or vomiting. I informed Toan that I am a little reluctant to begin a diet given the degree of adhesiolysis that was performed yesterday and the fact that he likely will have a component of a slight ileus. He does not have any stool or air within his colostomy this morning. Will continue with current care. The patient has been transferred out of ICU to floor. Will otherwise continue with current orders. SARA
[2017-10-10] MEDS: FLUTICASONE NASAL SPRAY 50mcg EA NOSTRIL SCH ×2 (09:34→21:45)
[2017-10-10] MEDS: EUCERIN CREAM 57gm TP SCH (09:34)
[2017-10-10] MEDS: PANTOPRAZOLE 40 MG INJECTION IVP SCH (09:34)
[2017-10-10] MEDS: ASPIRIN 81 MG CHEWABLE TABLET PO SCH (09:35)
[2017-10-10] MEDS: CETIRIZINE 10 MG TABLET PO SCH (09:35)
[2017-10-10] MEDS: ENOXAPARIN 40 MG/0.4 ML INJECTION SQ SCH (09:35)
[2017-10-10] MEDS: SERTRALINE 100 MG TABLET PO SCH (09:35)
[2017-10-10] MEDS: CALCIUM CARBONATE Chewable 500mg TABLET PO PRN ×2 (10:17→17:55)
--- NOTE | 2017-10-10 11:50 | Progress Note ---
- Date 10/10/17 Subjective: F/U: Small bowel obstruction Feels bummed out-tired of being in hospital. Has been up some with therapy- difficulty to move, sore in abdomen. No nausea. Not passing flatus. Breathing stable. Objective Vital signs: Temperature 98 F 10/10/17 08:12 Pulse Rate 75 10/10/17 08:12 Respiratory Rate 14 10/10/17 08:12 Blood Pressure 117/63 10/10/17 08:12 Pulse Oximetry 93 10/10/17 08:12 Rhythm: Normal Sinus Rhythm, Third Degree AV Block Height/Weight/BMI: Height 1.88 m Weight 96.5 kg Body Mass Index 26.6 - Constitutional Present: well nourished, well developed, average body habitus, cooperative - Routine HEENT Exam Head: Present: normocephalic, atraumatic Eye: Present: EOMI, PERRL ENT: Present: mucous membranes moist - Routine Respiratory Exam Present: decreased breath sounds. Absent: rales, respiratory distress, rhonchi , wheezes, crackles - Routine Cardiovascular Exam Present: RRR, no murmur - Routine Abdominal Exam Present: soft, non distended, non tender. Absent: normoactive bowel sounds ( minimal bowel sounds) - Routine Extremities Exam Present: no edema, pulses intact. Absent: cyanosis, clubbing Comments: SCD in place - Routine Musculoskeletal Exam Musculoskeletal: Present: no clubbing or cyanosis - Routine Skin Exam Present: dry, warm - Routine Neurological Exam Present: alert, oriented X3, CN II-XII intact, vision grossly intact, hearing grossly intact, normal speech. Absent: motor deficit, altered mental status - Routine Psychiatric Exam Present: normal affect, normal thought process, cooperative Results - Labs CBC & Chem 7: 10/10/17 04:07 10/10/17 04:07 Assessment and Plan (1) Small bowel obstruction Current visit: Yes Status: Acute Assessment and Plan: Assessment High-grade small bowel obstruction with transition level distal of the distal ileum possibly secondary to scarring at the presacral level. S/P Exploratory laparotomy with lysis of adhesions and creation of omental rotation flap patch - 10/08/17 Dehydration - resolved Rectal cancer - Dr. 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 Encourage ambulation. Continue Levemir 12 units at night to help glycemic control. NG tube clamped by Dr Stanford. Monitor for increased nausea/ab bloating. Diet to advance as per Dr Stanford. Bladder retraining - likely discontinue Cash in near future. Encourage IS for pulmonary toilet. Blood pressure and heart rate stable on current dose of Toprol XL - 25mg at night. Monitor lab. Time spent with patient care 25 minutes. DVT Prophylaxis: SCD's, Lovenox Resuscitation Status: Full Code - Time spent with patient Time with patient PN: 25 minutes - Physician Narrative Physician: Yosvany Ulrich MD Narrative: Date: 10/10/17 Time: 1145 Hospital Course Summary Disclaimer: The visit summary below is not to be considered part of the above Progress Note. Hospital Course: 10/01/17 - Hospital admission Admit, observation for SBO NG tube placed in ER with drainage of 850cc's gastric fluid Morphine IV PRN pain, Zofran IV PRN nausea NPO, pantoprazole IV daily; replace magnesium Tele (had a brief run of PAT during recent hosp stay) Hold all home medications Surgical consult placed SCD's for DVT prophylaxis Code staus - full code Care to return to Dr. Rosa on dismissal. 10/02/17 Continue NGT. RN to confirm placement. Assess KUB once NGT advanced. Surgery consulted- high grade bowel obstruction. Continue IVF, will add potassium as it is trending down. Magnesium replaced, normalized. BG is controlled with insulin held. Recent PAT- on metoprolol succinate for rate control. Continue to monitor blood counts closely- neutropenia, mild anemia. Follow labs closely. Pain is minimal. 10/03/17 Continue NGT/NPO. Continues to have fairly large amount of gastric drainage, but he had large BM this morning. Awaiting Dr. Stanford's recommendations -- anticipate conservative management. WBC up to 4.3. Hgb decreased to 10.3, but suspect this drop is heavily dilutional. K is still 3.5 - continue IVF with KCl. Mg decreased to 1.5 and IV bolus has been ordered. 10/04/17 Had large and copious results from Gastrografin small bowel follow through, abd soft, non-tender, denies nausea. Will discuss with Dr. Stanford. 10/05/[address] Espino surgical consultation. Tolerating liquid diet- Will advance as tolerated. He is having good stool output ostomy. Mild Hypokalemia today- replace orally. Continue to monitor blood sugars as they have been well controlled on metformin and sliding scale. Continue with Reglan scheduled to help her GI motility. Clinically improving. Will monitor patient today and be sure that he tolerates diet advancement. 10/06/17 - Hien Radiographically, it does appear that he has a significant high-grade partial small bowel obstruction. Clinically, however, he is tolerating a regular diet without difficulty and is having good output of his colostomy. At this time I would recommend that we continue to follow him more so from a clinical standpoint than that of a radiographic standpoint. If, tomorrow, he still remains without any onset of nausea or vomiting or recurrent abdominal pain, I would go ahead and discharge him to home. I would not be surprised, however, if in the future he would develop recurrent problems requiring readmission. Ultimately, it is my intuition that we may be "forced" to proceed with surgical intervention. I do feel, however, that surgery would be complicated given his prior history for radiation and abdominoperineal resection. At this time would not recommend surgical intervention unless he would have ongoing recurrent symptomatology as discussed above. 10/07/[address] Stanford. He examined the pt this afternoon and the pt complained of more abdominal pain. His abdomen is more distended and taut. He is going to proceed with surgery in the morning. 10/08/17 OP Day: Exploratory laparotomy with lysis of adhesions and creation of omental rotation flap patch Continue supportive post op care. Encourage IS for pulmonary toilet. Continue TPN until GI function improves. Pain control with [employer]ER. 10/09/17 POD #1 Blood sugars with elevation despite starting Levemir 8 units last night. Will give 5 units Levemir and increase evening dose to 12 units. Sugars with elevation due to TPN for nutritional support. NG tube clamped by Dr Stanford. Monitor for increased nausea/ab bloating. Encourage IS for pulmonary toilet. Will have nursing ambulate patient TID to help improve strength and promote bowel function. Transfer to surgical floor for continuation of care. 10/10/17 POD #2 PT consult to help improve strength and functional status. Encourage ambulation. Continue Levemir 12 units at night to help glycemic control. NG tube clamped by Dr Stanford. Monitor for increased nausea/ab bloating. Diet to advance as per Dr Stanford. Bladder retraining - likely discontinue Cash in near future. Encourage IS for pulmonary toilet. Blood pressure and heart rate stable on current dose of Toprol XL - 25mg at night.
[2017-10-10 12:15] VITALS: BMI 27.3
[2017-10-10] MEDS: FERROUS SULFATE 324 MG TABLET PO SCH ×2 (12:17→21:45)
[2017-10-10] MEDS ORDERED: POTASSIUM PHOSPHATE IV SCH (14:00)
[2017-10-10] MEDS ORDERED: [UNRECOGNIZED DRUG - OTHER] IV SCH (14:00)
[2017-10-10] MEDS ORDERED: SODIUM CHLORIDE IV SCH (14:00)
--- NOTE | 2017-10-10 15:33 | Wound Care Progress Note ---
Wound Center Progress Note: Pt well known to me from clinic at this time in to change drsing on bottom. This is a chronic non-healing wound 3.5 x 3 x 5 again placed Maxabsorb in wound and covered with a heart shaped Large Mepilex. This drsg does not need to be changed for 7 days, unless pulled off.
[2017-10-10] MEDS: FAT EMULSION 20% 100 ML IV SCH (15:52)
[2017-10-10] MEDS: KETOROLAC 30 MG/ML INJECTION IVP PRN (17:56)
[2017-10-10] MEDS: INSULIN DETEMIR 100unit/ml INJECTION SQ SCH (21:44)
[2017-10-10] MEDS: ATORVASTATIN 40 MG TABLET PO SCH (21:44)
[2017-10-10] MEDS: MIRTAZAPINE 45 MG TABLET PO SCH (21:45)
[2017-10-10] MEDS: TAMSULOSIN 0.4 MG CAPSULE PO SCH (21:45)
[2017-10-11] MEDS: INSULIN ASPART 100unit/ml INJECTION SQ PRN ×4 (06:41→23:51)
[2017-10-11] MEDS: ENOXAPARIN 40 MG/0.4 ML INJECTION SQ SCH (08:48)
[2017-10-11] MEDS: PANTOPRAZOLE 40 MG INJECTION IVP SCH (08:48)
[2017-10-11] MEDS: SERTRALINE 100 MG TABLET PO SCH (08:49)
[2017-10-11] MEDS: ASPIRIN 81 MG CHEWABLE TABLET PO SCH (08:49)
[2017-10-11] MEDS: CETIRIZINE 10 MG TABLET PO SCH (08:49)
[2017-10-11] MEDS: EUCERIN CREAM 57gm TP SCH (08:49)
[2017-10-11] MEDS: FLUTICASONE NASAL SPRAY 50mcg EA NOSTRIL SCH ×2 (08:50→20:05)
--- NOTE | 2017-10-11 09:33 | Progress Note ---
DATE 10/10/2017 FINDINGS Toan was seen earlier today on rounds. He was complaining of a component of some abdominal discomfort. He had not had, however, any nausea or vomiting. OBJECTIVE VITALS: Afebrile. Normotensive. Please refer to EMR. CHEST: Clear to auscultation bilaterally. HEART: Regular rate and rhythm. Normal S1, S2, without gallops, murmurs or clicks. ABDOMEN: Palpation of the abdomen reveals it to be soft and completely nontender. Unfortunately there was no air or stool within the colostomy. LABORATORY/RADIOGRAPHIC EVALUATION The patient had a CBC today and his white count is 6.0. Hemoglobin is 9.6. CMP was obtained and found to be essentially within normal limits. ASSESSMENT 67-year-old gentleman status post exploratory laparotomy, lysis of adhesions, creation of omental pedicle. Patient overall doing well. PLAN NG was hooked back up to low intermittent suction given the patient's complaint of abdominal discomfort. I would not be surprised if he does have a component of an ileus. Will continue with NG suction to low intermittent suction until we begin to see some air or stool within his colostomy. Otherwise will continue with current care at this time. SARA
--- NOTE | 2017-10-11 10:53 | Progress Note ---
- Date 10/11/17 Subjective: Patient is seen this morning resting in bed. He appears depressed. He has some pain in his abdomen, but isn't overly bothered by it. Sleeping ok. No output in colostomy bag. NG tube was removed this am. Diet advanced to clear liquids which he seems indifferent about. He complains that he doesn't want to get up in the chair or walk today because he feels too weak. Objective Vital signs: Temperature 97.9 F 10/11/17 07:32 Pulse Rate 65 10/11/17 08:00 Respiratory Rate 24 10/11/17 07:32 Blood Pressure 137/81 10/11/17 07:32 Pulse Oximetry 94 10/11/17 07:32 Height/Weight/BMI: Height 1.88 m Weight 94.7 kg Body Mass Index 27.3 - Constitutional Present: no acute distress, well developed - Routine HEENT Exam Head: Present: normocephalic, atraumatic - Routine Respiratory Exam Present: CTA bilaterally. Absent: wheezes - Routine Cardiovascular Exam Present: RRR, no murmur - Routine Abdominal Exam Present: soft, tenderness (at surgical site.), non distended, ostomy (LLQ). Absent: normoactive bowel sounds (hypoactive BS's) - Routine Extremities Exam Present: no edema, normal capillary refill - Routine Skin Exam Present: dry, warm - Routine Neurological Exam Present: alert, oriented X3 - Routine Lymphatic Exam Lymphatic: Absent: adenopathy - Routine Psychiatric Exam Present: cooperative, depressed Results - Labs CBC & Chem 7: 10/11/17 04:11 10/11/17 04:11 Assessment and Plan (1) Small bowel obstruction Current visit: Yes Status: Acute Assessment and Plan: Assessment High-grade small bowel obstruction with transition level distal of the distal ileum possibly secondary to scarring at the presacral level. S/P Exploratory laparotomy with lysis of adhesions and creation of omental rotation flap patch - 10/08/17 Dehydration - resolved Rectal cancer - Dr. 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 NG tube removed today. Will DC Cash as well. Diet advanced to clear liquids per Dr Stanford. Encourage IS for pulmonary toilet. Blood pressure and heart rate stable on current dose of Toprol XL - 25mg at night. K 3.5 today - has potassium in IVF's and TPN. Increase Levemir from 12 to 15 U for elevated BS's. Continue SSI. DVT Prophylaxis: SCD's, Lovenox Resuscitation Status: Full Code - Time spent with patient Time with patient PN: 25 minutes - Physician Narrative Physician: Yosvany Ulrich MD Narrative: Date: 10/11/17 Time: 1540 Have independently interviewed and examined pt. Chart reviewed. Case discussed with CM and my ROUGHING MILL OPERATOR. Care plan developed with my supervision; agree with above. Doing okay. No nausea. NG tube removed. Passing slight flatus from ostomy, but not stool. Ab pain with slight decrease. Breathing well. Trying to be more active. Lungs: decreased, no distress CV: regular AB: soft nd, BS decreased EXT: trace edema MSE: awake alert appropriate Plan: Dr Stanford had NG tube removed and diet advanced to clear liquids. Will monitor patient for increased ab pain and/or nausea. Continue with TPN until oral drive showing improvement. Encourage activities and ambulation. Monitor lab. Clinically making progress. Hospital Course Summary Disclaimer: The visit summary below is not to be considered part of the above Progress Note. Hospital Course: 10/01/17 - Hospital admission Admit, observation for SBO NG tube placed in ER with drainage of 850cc's gastric fluid Morphine IV PRN pain, Zofran IV PRN nausea NPO, pantoprazole IV daily; replace magnesium Tele (had a brief run of PAT during recent hosp stay) Hold all home medications Surgical consult placed SCD's for DVT prophylaxis Code staus - full code Care to return to Dr. Rosa on dismissal. 10/02/17 Continue NGT. RN to confirm placement. Assess KUB once NGT advanced. Surgery consulted- high grade bowel obstruction. Continue IVF, will add potassium as it is trending down. Magnesium replaced, normalized. BG is controlled with insulin held. Recent PAT- on metoprolol succinate for rate control. Continue to monitor blood counts closely- neutropenia, mild anemia. Follow labs closely. Pain is minimal. 10/03/17 Continue NGT/NPO. Continues to have fairly large amount of gastric drainage, but he had large BM this morning. Awaiting Dr. Stanford's recommendations -- anticipate conservative management. WBC up to 4.3. Hgb decreased to 10.3, but suspect this drop is heavily dilutional. K is still 3.5 - continue IVF with KCl. Mg decreased to 1.5 and IV bolus has been ordered. 10/04/17 Had large and copious results from Gastrografin small bowel follow through, abd soft, non-tender, denies nausea. Will discuss with Dr. Stanford. 10/05/[address] Espino surgical consultation. Tolerating liquid diet- Will advance as tolerated. He is having good stool output ostomy. Mild Hypokalemia today- replace orally. Continue to monitor blood sugars as they have been well controlled on metformin and sliding scale. Continue with Reglan scheduled to help her GI motility. Clinically improving. Will monitor patient today and be sure that he tolerates diet advancement. 10/06/17 - Hien Radiographically, it does appear that he has a significant high-grade partial small bowel obstruction. Clinically, however, he is tolerating a regular diet without difficulty and is having good output of his colostomy. At this time I would recommend that we continue to follow him more so from a clinical standpoint than that of a radiographic standpoint. If, tomorrow, he still remains without any onset of nausea or vomiting or recurrent abdominal pain, I would go ahead and discharge him to home. I would not be surprised, however, if in the future he would develop recurrent problems requiring readmission. Ultimately, it is my intuition that we may be "forced" to proceed with surgical intervention. I do feel, however, that surgery would be complicated given his prior history for radiation and abdominoperineal resection. At this time would not recommend surgical intervention unless he would have ongoing recurrent symptomatology as discussed above. 10/07/[address] Stanford. He examined the pt this afternoon and the pt complained of more abdominal pain. His abdomen is more distended and taut. He is going to proceed with surgery in the morning. 10/08/17 OP Day: Exploratory laparotomy with lysis of adhesions and creation of omental rotation flap patch Continue supportive post op care. Encourage IS for pulmonary toilet. Continue TPN until GI function improves. Pain control with PROFESSIONAL WRESTLER. 10/09/17 POD #1 Blood sugars with elevation despite starting Levemir 8 units last night. Will give 5 units Levemir and increase evening dose to 12 units. Sugars with elevation due to TPN for nutritional support. NG tube clamped by Dr Stanford. Monitor for increased nausea/ab bloating. Encourage IS for pulmonary toilet. Will have nursing ambulate patient TID to help improve strength and promote bowel function. Transfer to surgical floor for continuation of care. 10/10/17 POD #2 PT consult to help improve strength and functional status. Encourage ambulation. Continue Levemir 12 units at night to help glycemic control. NG tube clamped by Dr Stanford. Monitor for increased nausea/ab bloating. Diet to advance as per Dr Stanford. Bladder retraining - likely discontinue Cash in near future. Encourage IS for pulmonary toilet. Blood pressure and heart rate stable on current dose of Toprol XL - 25mg at night. 10/11/17 POD #3 Encouraged pt to sit up in chair and work w/ therapy. NG tube removed today. Will DC Cash as well. Diet advanced to clear liquids per Dr Stanford. K 3.5 today - has potassium in IVF's and TPN. Increase Levemir from 12 to 15 U for elevated BS's. Continue SSI.
[2017-10-11] MEDS: KETOROLAC 30 MG/ML INJECTION IVP PRN (11:02)
[2017-10-11] MEDS: FERROUS SULFATE 324 MG TABLET PO SCH ×2 (11:04→20:04)
[2017-10-11] MEDS: SODIUM CHLORIDE IV SCH (14:40)
[2017-10-11] MEDS: POTASSIUM PHOSPHATE IV SCH (14:40)
[2017-10-11] MEDS: [UNRECOGNIZED DRUG - OTHER] IV SCH (14:40)
--- NOTE | 2017-10-11 15:09 | Progress Note ---
DATE 10/11/2017 FINDINGS Mr. Avila this morning was somewhat depressed. He was requesting having his NG removed. He is wanting to "something eat". He is still having a component of abdominal discomfort. OBJECTIVE VITALS: Afebrile. Normotensive. Please refer to EMR. ABDOMEN: Soft. Minimal incisional tenderness. Colostomy now has air within the bag but no stool. LABORATORY/RADIOGRAPHIC EVALUATION Patient had a CBC today that was unremarkable. White count is 6.8. Hemoglobin is 9.7. BMP obtained and found to be without marked abnormalities. ASSESSMENT 67-year-old gentleman status post exploratory laparotomy, lysis of adhesions secondary to small bowel obstruction. Overall patient doing well. PLAN The patient has had very little out of his NG since it was hooked back up to low intermittent suction. He does have now air within his colostomy. Will go ahead and DC his NG and begin Toan on some clear liquids. Continue to follow closely. Overall patient making slow progress. MTDD
[2017-10-11] MEDS: SALINE FLUSH 10ml SYRINGE IVF PRN (15:33)
[2017-10-11] MEDS: FAT EMULSION 20% 100 ML IV SCH (15:33)
[2017-10-11] MEDS: D5-1/2NS with KCL 20mEq 1,000 ML IV SCH ×2 (19:15→20:12)
[2017-10-11] MEDS: INSULIN DETEMIR 100unit/ml INJECTION SQ SCH (20:04)
[2017-10-11] MEDS: MIRTAZAPINE 45 MG TABLET PO SCH (20:04)
[2017-10-11] MEDS: ATORVASTATIN 40 MG TABLET PO SCH (20:04)
[2017-10-11] MEDS: TAMSULOSIN 0.4 MG CAPSULE PO SCH (20:05)
[2017-10-12] MEDS: INSULIN ASPART 100unit/ml INJECTION SQ PRN ×4 (05:45→23:57)
[2017-10-12] MEDS ORDERED: Bisacodyl EC TAB 5 MG TABLET PO ONE ×2 (07:23→17:10)
--- NOTE | 2017-10-12 07:27 | General Surgery Progress Note ---
Subjective Patient reports: voiding w/o difficulty Narrative: There is a small amount of soft brown stool in colostomy bag this morning. He denies nausea. Complains of incisional pain with activity and has to be encouraged to ambulate. He indicates there is some right side discomfort. - Vital Signs Last Vital Signs Temp 99.3 F 10/12/17 03:00 Pulse 65 10/12/17 03:00 Resp 16 10/12/17 05:46 BP 138/77 10/12/17 03:00 Pulse Ox 95 10/12/17 03:00 - Laboratory Result Diagrams: 10/12/17 04:07 10/12/17 04:07 - Abnormal Exam Abdominal: obese, hypoactive bowel sounds (but there is a small amount of soft brown stool in colostomy bag) - Normal Exam General: resting, awakens easily Cardiovascular: regular rate Respiratory: clear bilaterally, no labored breathing Abdominal: soft, appropriately tender, incision(s) (dessing removed today, gigi in tact, no erythema, ecchymosis, drainage) Psychiatric: normal affect Assessment and Plan (1) Small bowel obstruction Current Visit: Yes Status: Acute (2) Diabetes mellitus type 2 with complications Current Visit: Yes Status: Chronic (3) Essential (primary) hypertension Current Visit: Yes Status: Chronic (4) GERD (gastroesophageal reflux disease) Current Visit: Yes Status: Chronic (5) Rectal cancer Current Visit: Yes Status: Chronic Problem details: Oncologist: Dr. Dueñas S/P Neoadjuvant chemoradiation and robotic APR 01/12/2016 with positive resection margins. (6) H/O resection of rectum Current Visit: Yes Status: Chronic Plan: Encouraged that there is a little soft stool in colostomy, will give Dulcolax PO this am. Incision CDI, may shower. Will advance to full liquids with calorie count. Once he is eating better and bowel function is consistently adequate, anticipate DC TPN. Hospital Course Summary Disclaimer: The visit summary below is not to be considered part of the above Progress Note. Hospital Course: 10/01/17 - Hospital admission Admit, observation for SBO NG tube placed in ER with drainage of 850cc's gastric fluid Morphine IV PRN pain, Zofran IV PRN nausea NPO, pantoprazole IV daily; replace magnesium Tele (had a brief run of PAT during recent hosp stay) Hold all home medications Surgical consult placed SCD's for DVT prophylaxis Code staus - full code Care to return to Dr. Rosa on dismissal. 10/02/17 Continue NGT. RN to confirm placement. Assess KUB once NGT advanced. Surgery consulted- high grade bowel obstruction. Continue IVF, will add potassium as it is trending down. Magnesium replaced, normalized. BG is controlled with insulin held. Recent PAT- on metoprolol succinate for rate control. Continue to monitor blood counts closely- neutropenia, mild anemia. Follow labs closely. Pain is minimal. 10/03/17 Continue NGT/NPO. Continues to have fairly large amount of gastric drainage, but he had large BM this morning. Awaiting Dr. Stanford's recommendations -- anticipate conservative management. WBC up to 4.3. Hgb decreased to 10.3, but suspect this drop is heavily dilutional. K is still 3.5 - continue IVF with KCl. Mg decreased to 1.5 and IV bolus has been ordered. 10/04/17 Had large and copious results from Gastrografin small bowel follow through, abd soft, non-tender, denies nausea. Will discuss with Dr. Stanford. 10/05/[address] Espino surgical consultation. Tolerating liquid diet- Will advance as tolerated. He is having good stool output ostomy. Mild Hypokalemia today- replace orally. Continue to monitor blood sugars as they have been well controlled on metformin and sliding scale. Continue with Reglan scheduled to help her GI motility. Clinically improving. Will monitor patient today and be sure that he tolerates diet advancement. 10/06/17 - Hien Radiographically, it does appear that he has a significant high-grade partial small bowel obstruction. Clinically, however, he is tolerating a regular diet without difficulty and is having good output of his colostomy. At this time I would recommend that we continue to follow him more so from a clinical standpoint than that of a radiographic standpoint. If, tomorrow, he still remains without any onset of nausea or vomiting or recurrent abdominal pain, I would go ahead and discharge him to home. I would not be surprised, however, if in the future he would develop recurrent problems requiring readmission. Ultimately, it is my intuition that we may be "forced" to proceed with surgical intervention. I do feel, however, that surgery would be complicated given his prior history for radiation and abdominoperineal resection. At this time would not recommend surgical intervention unless he would have ongoing recurrent symptomatology as discussed above. 10/07/[address] Stanford. He examined the pt this afternoon and the pt complained of more abdominal pain. His abdomen is more distended and taut. He is going to proceed with surgery in the morning. 10/08/17 OP Day: Exploratory laparotomy with lysis of adhesions and creation of omental rotation flap patch Continue supportive post op care. Encourage IS for pulmonary toilet. Continue TPN until GI function improves. Pain control with PLATE MOUNTER. 10/09/17 POD #1 Blood sugars with elevation despite starting Levemir 8 units last night. Will give 5 units Levemir and increase evening dose to 12 units. Sugars with elevation due to TPN for nutritional support. NG tube clamped by Dr Stanford. Monitor for increased nausea/ab bloating. Encourage IS for pulmonary toilet. Will have nursing ambulate patient TID to help improve strength and promote bowel function. Transfer to surgical floor for continuation of care. 10/10/17 POD #2 PT consult to help improve strength and functional status. Encourage ambulation. Continue Levemir 12 units at night to help glycemic control. NG tube clamped by Dr Stanford. Monitor for increased nausea/ab bloating. Diet to advance as per Dr Stanford. Bladder retraining - likely discontinue Cash in near future. Encourage IS for pulmonary toilet. Blood pressure and heart rate stable on current dose of Toprol XL - 25mg at night. 10/11/17 POD #3 Encouraged pt to sit up in chair and work w/ therapy. NG tube removed today. Will DC Cash as well. Diet advanced to clear liquids per Dr Stanford. K 3.5 today - has potassium in IVF's and TPN. Increase Levemir from 12 to 15 U for elevated BS's. Continue SSI.
[2017-10-12] MEDS: SALINE FLUSH 10ml SYRINGE IVF PRN ×2 (08:52→14:05)
[2017-10-12] MEDS: ENOXAPARIN 40 MG/0.4 ML INJECTION SQ SCH (08:53)
[2017-10-12] MEDS: FLUTICASONE NASAL SPRAY 50mcg EA NOSTRIL SCH ×2 (08:53→20:18)
[2017-10-12] MEDS: PANTOPRAZOLE 40 MG INJECTION IVP SCH (08:53)
[2017-10-12] MEDS: ASPIRIN 81 MG CHEWABLE TABLET PO SCH (08:53)
[2017-10-12] MEDS: SERTRALINE 100 MG TABLET PO SCH (08:53)
[2017-10-12] MEDS: CETIRIZINE 10 MG TABLET PO SCH (08:53)
[2017-10-12] MEDS: EUCERIN CREAM 57gm TP SCH (08:54)
--- NOTE | 2017-10-12 09:11 | Progress Note ---
- Date 10/12/17 Subjective: F/U: Small bowel obstruction Toan was seen resting in bed this morning. 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 Has some stool in his ostomy bag. He was up yesterday to the chair and walked twice. He is in better spirits. No chest pain or shortness of breath. Continues to feel weak. Objective Vital signs: Temperature 96.8 F 10/12/17 07:54 Pulse Rate 63 10/12/17 08:00 Respiratory Rate 18 10/12/17 07:54 Blood Pressure 124/71 10/12/17 07:54 Pulse Oximetry 96 10/12/17 07:54 Height/Weight/BMI: Height 1.88 m Weight 94.1 kg Body Mass Index 27.3 - Constitutional Present: no acute distress, well nourished, well developed - Routine HEENT Exam Head: Present: normocephalic, atraumatic - Routine Respiratory Exam Present: CTA bilaterally. Absent: wheezes - Routine Cardiovascular Exam Present: RRR, no murmur - Routine Abdominal Exam Present: soft, normoactive bowel sounds, tenderness (a round area of incision), non distended Comments: He has some brown, soft stool in his ostomy bag - Routine Extremities Exam Present: no edema, normal capillary refill - Routine Skin Exam Present: dry, warm - Routine Neurological Exam Present: alert, oriented X3 - Routine Lymphatic Exam Lymphatic: Absent: adenopathy - Routine Psychiatric Exam Present: normal affect, cooperative Results - Labs CBC & Chem 7: 10/12/17 04:07 10/12/17 04:07 Assessment and Plan (1) Small bowel obstruction Current visit: Yes Status: Acute Assessment and Plan: Assessment High-grade small bowel obstruction with transition level distal of the distal ileum possibly secondary to scarring at the presacral level. S/P Exploratory laparotomy with lysis of adhesions and creation of omental rotation flap patch - 10/08/17 Dehydration - resolved Rectal cancer - Dr. 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 Overall patient is improving. Continue to encourage therapy. Diet advanced to full liquids per surgery. Once he is eating better and bowel function is consistently adequate, anticipate DC TPN Vital signs and labs are stable. Hemoglobin dropped just slightly from yesterday. Will continue to follow. Levemir was increased from 12-15 units last evening. Will continue sliding scale insulin and follow blood sugars. Mojgan As oral intake increasing can restart metformin 500mg BID with meals. Will need to decrease Levemir once TPN stopped. Will stop D51/2NS with KCl as oral intake improving. DVT Prophylaxis: SCD's, Lovenox Resuscitation Status: Full Code - Time spent with patient Time with patient PN: 25 minutes - Physician Narrative Physician: Yosvany Ulrich MD Narrative: Date: 10/12/17 Time: 1340 Have independently interviewed and examined pt. Chart reviewed. Case discussed with CM and my PA. Care plan developed with my supervision; agree with above. Doing okay. Tolerating oral intake without nausea. Not feeling very hungry. Passing flatus and slight stool from ostomy. Some ab cramping and bloating. Ab pain worse with positional changes. Breathing well. No f/c. Lungs: clear bilaterally, no distress CV: regular AB: soft nt/nd, BS minimal EXT: no edema MSE: awake alert Plan: Continue with supportive post op care. As oral intake increasing can restart metformin 500mg BID with meals. Will need to decrease Levemir once TPN stopped. Encourage activities and ambulation. Hospital Course Summary Disclaimer: The visit summary below is not to be considered part of the above Progress Note. Hospital Course: 10/01/17 - Hospital admission Admit, observation for SBO NG tube placed in ER with drainage of 850cc's gastric fluid Morphine IV PRN pain, Zofran IV PRN nausea NPO, pantoprazole IV daily; replace magnesium Tele (had a brief run of PAT during recent hosp stay) Hold all home medications Surgical consult placed SCD's for DVT prophylaxis Code staus - full code Care to return to Dr. Rosa on dismissal. 10/02/17 Continue NGT. RN to confirm placement. Assess KUB once NGT advanced. Surgery consulted- high grade bowel obstruction. Continue IVF, will add potassium as it is trending down. Magnesium replaced, normalized. BG is controlled with insulin held. Recent PAT- on metoprolol succinate for rate control. Continue to monitor blood counts closely- neutropenia, mild anemia. Follow labs closely. Pain is minimal. 10/03/17 Continue NGT/NPO. Continues to have fairly large amount of gastric drainage, but he had large BM this morning. Awaiting Dr. Stanford's recommendations -- anticipate conservative management. WBC up to 4.3. Hgb decreased to 10.3, but suspect this drop is heavily dilutional. K is still 3.5 - continue IVF with KCl. Mg decreased to 1.5 and IV bolus has been ordered. 10/04/17 Had large and copious results from Gastrografin small bowel follow through, abd soft, non-tender, denies nausea. Will discuss with Dr. Stanford. 10/05/[address] Espino surgical consultation. Tolerating liquid diet- Will advance as tolerated. He is having good stool output ostomy. Mild Hypokalemia today- replace orally. Continue to monitor blood sugars as they have been well controlled on metformin and sliding scale. Continue with Reglan scheduled to help her GI motility. Clinically improving. Will monitor patient today and be sure that he tolerates diet advancement. 10/06/17 - Hien Radiographically, it does appear that he has a significant high-grade partial small bowel obstruction. Clinically, however, he is tolerating a regular diet without difficulty and is having good output of his colostomy. At this time I would recommend that we continue to follow him more so from a clinical standpoint than that of a radiographic standpoint. If, tomorrow, he still remains without any onset of nausea or vomiting or recurrent abdominal pain, I would go ahead and discharge him to home. I would not be surprised, however, if in the future he would develop recurrent problems requiring readmission. Ultimately, it is my intuition that we may be "forced" to proceed with surgical intervention. I do feel, however, that surgery would be complicated given his prior history for radiation and abdominoperineal resection. At this time would not recommend surgical intervention unless he would have ongoing recurrent symptomatology as discussed above. 10/07/[address] Stanford. He examined the pt this afternoon and the pt complained of more abdominal pain. His abdomen is more distended and taut. He is going to proceed with surgery in the morning. 10/08/17 OP Day: Exploratory laparotomy with lysis of adhesions and creation of omental rotation flap patch Continue supportive post op care. Encourage IS for pulmonary toilet. Continue TPN until GI function improves. 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 10/09/17 POD #1 Blood sugars with elevation despite starting Levemir 8 units last night. Will give 5 units Levemir and increase evening dose to 12 units. Sugars with elevation due to TPN for nutritional support. NG tube clamped by Dr Stanford. Monitor for increased nausea/ab bloating. Encourage IS for pulmonary toilet. Will have nursing ambulate patient TID to help improve strength and promote bowel function. Transfer to surgical floor for continuation of care. 10/10/17 POD #2 PT consult to help improve strength and functional status. Encourage ambulation. Continue Levemir 12 units at night to help glycemic control. NG tube clamped by Dr Stanford. Monitor for increased nausea/ab bloating. Diet to advance as per Dr Stanford. Bladder retraining - likely discontinue Cash in near future. Encourage IS for pulmonary toilet. Blood pressure and heart rate stable on current dose of Toprol XL - 25mg at night. 10/11/17 POD #3 Encouraged pt to sit up in chair and work w/ therapy. NG tube removed today. Will DC Cash as well. Diet advanced to clear liquids per Dr Stanford. K 3.5 today - has potassium in IVF's and TPN. Increase Levemir from 12 to 15 U for elevated BS's. Continue SSI. 10/12/17 POD #4 Overall patient is improving. Continue to encourage therapy. Diet advanced to full liquids per surgery. Once he is eating better and bowel function is consistently adequate, anticipate DC TPN. Will stop D51/2NS with KCl as oral intake improving. Vital signs and labs are stable. Hemoglobin dropped just slightly from yesterday. Will continue to follow. Levemir was increased from 12-15 units last evening. Will continue sliding scale insulin and follow blood sugars. As oral intake increasing can restart metformin 500mg BID with meals. Will need to decrease Levemir once TPN stopped.
[2017-10-12] MEDS: FERROUS SULFATE 324 MG TABLET PO SCH ×2 (11:44→20:18)
[2017-10-12] MEDS: KETOROLAC 30 MG/ML INJECTION IVP PRN (13:19)
[2017-10-12] MEDS: SODIUM CHLORIDE IV SCH (14:05)
[2017-10-12] MEDS: [UNRECOGNIZED DRUG - OTHER] IV SCH (14:05)
[2017-10-12] MEDS: POTASSIUM PHOSPHATE IV SCH (14:05)
[2017-10-12] MEDS: FAT EMULSION 20% 100 ML IV SCH (16:49)
[2017-10-12] MEDS: METFORMIN 500 MG TABLET PO SCH (18:44)
[2017-10-12] MEDS: INSULIN DETEMIR 100unit/ml INJECTION SQ SCH (20:17)
[2017-10-12] MEDS: MIRTAZAPINE 45 MG TABLET PO SCH (20:18)
[2017-10-12] MEDS: TAMSULOSIN 0.4 MG CAPSULE PO SCH (20:18)
[2017-10-12] MEDS: ATORVASTATIN 40 MG TABLET PO SCH (20:18)
[2017-10-12] MEDS: ACETAMINOPHEN 325 MG TABLET PO PRN (22:55)
[2017-10-13] MEDS: INSULIN ASPART 100unit/ml INJECTION SQ PRN ×3 (06:03→17:09)
--- NOTE | 2017-10-13 07:48 | Pharmacy Consult-TPN/PPN ---
Pharmacy Consult-TPN/PPN - Laboratory Information Chemistry Turbidity < 20 (0-20) 10/13/17 04:35 Sodium 141 MEQ/L (134-144) 10/13/17 04:35 Potassium 3.9 MEQ/L (3.6-5) 10/13/17 04:35 Chloride 111 MEQ/L (98-107) H 10/13/17 04:35 Carbon Dioxide 26 MEQ/L (22-30) 10/13/17 04:35 Anion Gap 4 meq/L (5-15) L 10/13/17 04:35 BUN 12.0 MG/DL (9-20) 10/13/17 04:35 Creatinine 0.6 mg/dL (0.8-1.5) L 10/13/17 04:35 GFR Calculation 135 10/13/17 04:35 BUN/Creatinine Ratio 20 RATIO (6-26) 10/13/17 04:35 Glucose 188 MG/DL (75-110) H 10/13/17 04:35 Glucometer 214 mg/dL (65-110) 10/13/17 05:53 Calculated Osmolality 276 MOSM/KG (261-280) 10/13/17 04:35 Calcium 7.5 MG/DL (8.4-10.2) L 10/13/17 04:35 Phosphorus 3.2 MG/DL (2.5-4.5) 10/10/17 04:07 Magnesium 1.7 MG/DL (1.6-2.3) 10/10/17 04:07 Total Bilirubin 0.20 MG/DL (0.20-1.30) 10/10/17 04:07 Icterus Index < 2 (0-7) 10/13/17 04:35 AST 17 U/L (17-59) 10/10/17 04:07 ALT 10 U/L (1-50) 10/10/17 04:07 Alkaline Phosphatase 52 U/L (38-126) D 10/10/17 04:07 Total Protein 4.0 g/dL (6.3-8.2) L 10/10/17 04:07 Albumin 1.8 g/dL (3.5-5.0) L 10/10/17 04:07 Globulin 2.2 G/DL (2.4-3.6) L 10/10/17 04:07 Albumin/Globulin Ratio 0.8 RATIO (1.1-2.2) L 10/10/17 04:07 Lipase 38 U/L (23-300) 10/01/17 14:31 Specimen Hemolysis < 15 (0-25) 10/13/17 04:35 Intake and Output 10/12/17 10/13/17 10/14/17 06:59 06:59 06:59 Intake Total 2626.8329 / 2626.8329 4147.084 / 4147.084 Output Total 1830 / 1830 2480 / 2480 Balance 796.8329 / 796.8329 1667.084 / 1667.084 Weight 94.7 kg 94.1 kg Intake: IV 1656.8329 / 1656.8329 3007.084 / 3007.084 D5-1/2NS with KCL 20mEq 1,000 740.833 / 740.833 902.5 / 902.5 ml @ 50 mls/hr IV .Q20H JYOTI Rx# :[id number] Fat Emulsion 20% 100 ml @ 100 100 / 100 100 / 100 mls/hr IV 1600 JYOTI Rx#: [id number] Sodium Chloride Conc 60 meq 815.9999 / 815.9999 2004.584 / 2004.584 POTASSIUM PHOSPHATE (mEq) 40 meq Magnesium Sulfate Inj 16 meq Calcium Gluconate 9.3 meq Multi-Vit Infusion 10 ml Multi -Trace Elements 1 ml Potassium Acetate Inj 60 meq In TPN - Custom Formula 2,000 ml @ 85 mls/hr IV .Q24H JYOTI Rx#: [id number] Oral 970 / 970 1140 / 1140 Output: Urine 1400 / 1400 2155 / 2155 Stool 325 / 325 Urine Amount (Catheter) 400 / 400 Gastric Drainage 30 / 30 Left Nare 30 / 30 Other: Urine Appearance Clear Clear Urine Color Yellow Yellow Urine Odor Normal Normal Stool Color Green Stool Consistency Soft Liquid Size of Bowel Movement Moderate # Voids 2 # Incontinent Voids 1 2 - Consult Information Serum sodium and chloride trending up to we will remove 20mEq of NaCl from each TPN bag beginning with next bag at 1400 today. We will continue same rate of 85mL per hour. I will order phosphate and magnesium for a.m. Thanks
--- NOTE | 2017-10-13 08:11 | Progress Note ---
DATE 10/12/2017 FINDINGS Mr. Avila was seen this evening on rounds. He denied any element of abdominal pain, nausea or vomiting. OBJECTIVE VITALS: Afebrile. Normotensive. Please refer to EMR. ABDOMEN: Soft, nontender. A fair amount of stool and air was present within his colostomy. ASSESSMENT 67-year-old gentleman status post exploratory laparotomy, lysis of adhesions secondary to small bowel obstruction. Patient currently doing well. PLAN Advance to regular diet. May discharge tomorrow pending on his progress. MTDD
[2017-10-13] MEDS: ENOXAPARIN 40 MG/0.4 ML INJECTION SQ SCH (08:32)
[2017-10-13] MEDS: ACETAMINOPHEN 325 MG TABLET PO PRN ×3 (08:32→22:33)
[2017-10-13] MEDS: EUCERIN CREAM 57gm TP SCH (08:32)
[2017-10-13] MEDS: ASPIRIN 81 MG CHEWABLE TABLET PO SCH (08:33)
[2017-10-13] MEDS: METFORMIN 500 MG TABLET PO SCH ×2 (08:33→17:09)
[2017-10-13] MEDS: PANTOPRAZOLE 40 MG INJECTION IVP SCH (08:33)
[2017-10-13] MEDS: CETIRIZINE 10 MG TABLET PO SCH (08:33)
[2017-10-13] MEDS: SALINE FLUSH 10ml SYRINGE IVF PRN ×2 (08:33→20:11)
[2017-10-13] MEDS: SERTRALINE 100 MG TABLET PO SCH (08:33)
[2017-10-13] MEDS: FLUTICASONE NASAL SPRAY 50mcg EA NOSTRIL SCH ×2 (08:33→20:09)
--- NOTE | 2017-10-13 09:14 | General Surgery Progress Note ---
Subjective Patient reports: feels better, tolerating a regular diet (for breakfast this morning.), voiding w/o difficulty, flatus, bowel movement, afebrile Narrative: Soft/loose stool in colostomy bag, denies nausea, regular breakfast today. - Vital Signs Last Vital Signs Temp 95.7 F L 10/13/17 08:39 Pulse 76 10/13/17 08:39 Resp 16 10/13/17 08:39 BP 97/65 10/13/17 08:39 Pulse Ox 99 10/13/17 08:39 - Laboratory Result Diagrams: 10/13/17 04:35 10/13/17 04:35 - Abnormal Exam Abdominal: obese - Normal Exam General: awake, alert, oriented Cardiovascular: regular rate Respiratory: no labored breathing Abdominal: BS normo active x4, soft, appropriately tender (midline) Psychiatric: normal affect Assessment and Plan (1) Small bowel obstruction Current Visit: Yes Status: Acute (2) Diabetes mellitus type 2 with complications Current Visit: Yes Status: Chronic (3) Essential (primary) hypertension Current Visit: Yes Status: Chronic (4) GERD (gastroesophageal reflux disease) Current Visit: Yes Status: Chronic (5) Rectal cancer Current Visit: Yes Status: Chronic Problem details: Oncologist: Dr. Dueñas S/P Neoadjuvant chemoradiation and robotic APR 01/12/2016 with positive resection margins. (6) H/O resection of rectum Current Visit: Yes Status: Chronic Plan: Having stool in colostomy, abd soft, no nausea. - see how he does for at least breakfast and lunch -I told pharmacy that his current TPN will likely be his last bag. -consider discharge later today or tomorrow. Hospital Course Summary Disclaimer: The visit summary below is not to be considered part of the above Progress Note. Hospital Course: 10/01/17 - Hospital admission Admit, observation for SBO NG tube placed in ER with drainage of 850cc's gastric fluid Morphine IV PRN pain, Zofran IV PRN nausea NPO, pantoprazole IV daily; replace magnesium Tele (had a brief run of PAT during recent hosp stay) Hold all home medications Surgical consult placed SCD's for DVT prophylaxis Code staus - full code Care to return to Dr. Rosa on dismissal. 10/02/17 Continue NGT. RN to confirm placement. Assess KUB once NGT advanced. Surgery consulted- high grade bowel obstruction. Continue IVF, will add potassium as it is trending down. Magnesium replaced, normalized. BG is controlled with insulin held. Recent PAT- on metoprolol succinate for rate control. Continue to monitor blood counts closely- neutropenia, mild anemia. Follow labs closely. Pain is minimal. 10/03/17 Continue NGT/NPO. Continues to have fairly large amount of gastric drainage, but he had large BM this morning. Awaiting Dr. Stanford's recommendations -- anticipate conservative management. WBC up to 4.3. Hgb decreased to 10.3, but suspect this drop is heavily dilutional. K is still 3.5 - continue IVF with KCl. Mg decreased to 1.5 and IV bolus has been ordered. 10/04/17 Had large and copious results from Gastrografin small bowel follow through, abd soft, non-tender, denies nausea. Will discuss with Dr. Stanford. 10/05/[address] Espino surgical consultation. Tolerating liquid diet- Will advance as tolerated. He is having good stool output ostomy. Mild Hypokalemia today- replace orally. Continue to monitor blood sugars as they have been well controlled on metformin and sliding scale. Continue with Reglan scheduled to help her GI motility. Clinically improving. Will monitor patient today and be sure that he tolerates diet advancement. 10/06/17 - Hien Radiographically, it does appear that he has a significant high-grade partial small bowel obstruction. Clinically, however, he is tolerating a regular diet without difficulty and is having good output of his colostomy. At this time I would recommend that we continue to follow him more so from a clinical standpoint than that of a radiographic standpoint. If, tomorrow, he still remains without any onset of nausea or vomiting or recurrent abdominal pain, I would go ahead and discharge him to home. I would not be surprised, however, if in the future he would develop recurrent problems requiring readmission. Ultimately, it is my intuition that we may be "forced" to proceed with surgical intervention. I do feel, however, that surgery would be complicated given his prior history for radiation and abdominoperineal resection. At this time would not recommend surgical intervention unless he would have ongoing recurrent symptomatology as discussed above. 10/07/[address] Stanford. He examined the pt this afternoon and the pt complained of more abdominal pain. His abdomen is more distended and taut. He is going to proceed with surgery in the morning. 10/08/17 OP Day: Exploratory laparotomy with lysis of adhesions and creation of omental rotation flap patch Continue supportive post op care. Encourage IS for pulmonary toilet. Continue TPN until GI function improves. 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 10/09/17 POD #1 Blood sugars with elevation despite starting Levemir 8 units last night. Will give 5 units Levemir and increase evening dose to 12 units. Sugars with elevation due to TPN for nutritional support. NG tube clamped by Dr Stanford. Monitor for increased nausea/ab bloating. Encourage IS for pulmonary toilet. Will have nursing ambulate patient TID to help improve strength and promote bowel function. Transfer to surgical floor for continuation of care. 10/10/17 POD #2 PT consult to help improve strength and functional status. Encourage ambulation. Continue Levemir 12 units at night to help glycemic control. NG tube clamped by Dr Stanford. Monitor for increased nausea/ab bloating. Diet to advance as per Dr Stanford. Bladder retraining - likely discontinue Cash in near future. Encourage IS for pulmonary toilet. Blood pressure and heart rate stable on current dose of Toprol XL - 25mg at night. 10/11/17 POD #3 Encouraged pt to sit up in chair and work w/ therapy. NG tube removed today. Will DC Cash as well. Diet advanced to clear liquids per Dr Stanford. K 3.5 today - has potassium in IVF's and TPN. Increase Levemir from 12 to 15 U for elevated BS's. Continue SSI. 10/12/17 POD #4 Overall patient is improving. Continue to encourage therapy. Diet advanced to full liquids per surgery. Once he is eating better and bowel function is consistently adequate, anticipate DC TPN. Will stop D51/2NS with KCl as oral intake improving. Vital signs and labs are stable. Hemoglobin dropped just slightly from yesterday. Will continue to follow. Levemir was increased from 12-15 units last evening. Will continue sliding scale insulin and follow blood sugars. As oral intake increasing can restart metformin 500mg BID with meals. Will need to decrease Levemir once TPN stopped.
[2017-10-13] MEDS: FERROUS SULFATE 324 MG TABLET PO SCH ×2 (11:20→20:09)
--- NOTE | 2017-10-13 13:22 | Progress Note ---
DATE 10/13/2017 FINDINGS Mr. Avila was seen earlier this morning on rounds. He was without complaints. He was tolerating a regular diet. OBJECTIVE ABDOMEN: Soft, nontender. Fair amount of stool and air within colostomy. ASSESSMENT 67-year-old gentleman status post exploratory laparotomy with lysis of adhesions secondary to small bowel obstruction. Patient doing well. PLAN Discharge back to alf. [facility]
[2017-10-13] MEDS ORDERED: SODIUM CHLORIDE IV SCH (14:00)
[2017-10-13] MEDS ORDERED: [UNRECOGNIZED DRUG - OTHER] IV SCH (14:00)
[2017-10-13] MEDS ORDERED: POTASSIUM PHOSPHATE IV SCH (14:00)
[2017-10-13] MEDS: FAT EMULSION 20% 100 ML IV SCH (15:12)
--- NOTE | 2017-10-13 15:23 | Progress Note ---
- Date 10/13/17 Subjective: Patient is a 67-year-old who presented to the emergency room from [facility] in [place] for vomiting fecal-like material and abdominal pain which started 09/30/17 pm. He has rectal cancer and has had robotic-assisted A/P resection and colostomy by Dr. Stanford in 2016. Patient states he was in the hospital in [place] September 28- and was dismissed 09/30/17 am feeling okay. Abdominal pain, nausea and vomiting didn't start until later in the day. In talking with patient's PCP, patient was seen initially in the ER on September 26 with dizziness and other vague symptoms. UA was positive for UTI, although patient didn't have any urinary symptoms. He was started on Cipro. He returned to the clinic on the still not feeling well and complaining of vague symptoms including dizziness; he was thus hospitalized for IV fluids and further observation. He did complete the full course of Cipro for possible UTI. There were no significant events during his hospital stay. CT scan in the ER revealed high-grade small bowel obstruction. NG tube was placed with drainage of [address] Tate was notified and agrees to consult. Dr. Stanford took over care on the and initially felt he may need to have surgical intervention but opted to manage conservatively after the patient improved from a radiographic standpoint. His diet progressed to a regular diet starting 10/05/17. He did not tolerate that diet well and had increased abdominal pain but it was continued and on 10/06/17 he did better with it and the pain resolved on its own. Bowel sounds on 10/05/17 were quiet, on 10/06/17 they were hyperactive and high pitched. On 10/07/17 he complained of increasing abdominal pain and distention. There was decreasing output in the colostomy. The NGT was put back in on low intermittent suction. He subsequently underwent an exploratory laparotomy with lysis of adhesions and creation of omental rotations flap patch. He tolerated the surgery well. He was started on TPN. The NGT continued on intermittent suction. This was able to be dc'd on the as he started having air in the ostomy. He was started on clear liquids. Today, he has tolerating advancing the diet. He is having stool output in the ostomy now. His diet has been advanced to regular for this evening. TPN stopped. He denies any abdominal pain except for surgical pain. No distention. No N/V. No fevers. No SOA. He would like to go home. He was seen by surgery and is okay to go from their standpoint. We will plan on tomorrow, once we get insulin dosing stabilized. Objective Vital signs: Temperature 97.1 F 10/13/17 11:29 Pulse Rate 73 10/13/17 11:29 Respiratory Rate 16 10/13/17 11:29 Blood Pressure 98/63 10/13/17 11:29 Pulse Oximetry 98 10/13/17 11:29 Rhythm: Normal Sinus Rhythm, Third Degree AV Block Height/Weight/BMI: Height 1.88 m Weight 94.2 kg Body Mass Index 27.3 Comments: Gen: alert and oriented. NAD Skin: warm and dry HEENT: NC/AT PERRL, EOMI, Sclera, lids and conjunctiva wnl, MMM, OP clear Neck: supple. No JVD, Carotids 2+ without bruits. Lungs: clear, No rales, rhonchi, wheezes. CV: regular. No murmur, rub or gallop Abd: soft. NT/ND, +BS, Ostomy with air and stool. MS: No edema. Good strength and ROM. Neuro: No focal deficit Psy: normal mood and affect Results - Labs CBC & Chem 7: 10/13/17 04:35 10/13/17 04:35 Assessment and Plan (1) Small bowel obstruction Current visit: Yes Status: Acute Assessment and Plan: Assessment High-grade small bowel obstruction with transition level distal of the distal ileum possibly secondary to scarring at the presacral level. S/P Exploratory laparotomy with lysis of adhesions and creation of omental rotation flap patch - 10/08/17 Dehydration - resolved Rectal cancer - Dr. Dueñas - currently on q 2wk chemo, palliative Type 2 diabetes Hypertension Hyperlipidemia Chronic venous stasis Chronic buttock wound (follows with wound clinic) - Stable, Wound and skin following Depression PVD Neutropenia - improved Hypomagnesemia (POA) Hypokalemia (Not POA) Groin yeast Plan POD #5. Patient improving. Tolerating advancing diet. Good output from ostomy Diet advanced to regular per surgery. DC TPN. Adjust insulin now that he is off TPN Back on metformin. May need to decrease lantus. On SSI still for meals Vital signs and labs are stable. Hemoglobin dropped again from yesterday. Repeat in am. Pt placed back on his mag replacements, repeat level in am. Potassium stable, repeat in am. Will plan on discharge tomorrow back to [place]. - Physician Narrative Narrative: Date: 10/13/17 Time: 1513 Hospital Course Summary Disclaimer: The visit summary below is not to be considered part of the above Progress Note. Hospital Course: 10/01/17 - Hospital admission Admit, observation for SBO NG tube placed in ER with drainage of 850cc's gastric fluid Morphine IV PRN pain, Zofran IV PRN nausea NPO, pantoprazole IV daily; replace magnesium Tele (had a brief run of PAT during recent hosp stay) Hold all home medications Surgical consult placed SCD's for DVT prophylaxis Code staus - full code Care to return to Dr. Rosa on dismissal. 10/02/17 Continue NGT. RN to confirm placement. Assess KUB once NGT advanced. Surgery consulted- high grade bowel obstruction. Continue IVF, will add potassium as it is trending down. Magnesium replaced, normalized. BG is controlled with insulin held. Recent PAT- on metoprolol succinate for rate control. Continue to monitor blood counts closely- neutropenia, mild anemia. Follow labs closely. Pain is minimal. 10/03/17 Continue NGT/NPO. Continues to have fairly large amount of gastric drainage, but he had large BM this morning. Awaiting Dr. Stanford's recommendations -- anticipate conservative management. WBC up to 4.3. Hgb decreased to 10.3, but suspect this drop is heavily dilutional. K is still 3.5 - continue IVF with KCl. Mg decreased to 1.5 and IV bolus has been ordered. 10/04/17 Had large and copious results from Gastrografin small bowel follow through, abd soft, non-tender, denies nausea. Will discuss with Dr. Stanford. 10/05/[address] Epsino surgical consultation. Tolerating liquid diet- Will advance as tolerated. He is having good stool output ostomy. Mild Hypokalemia today- replace orally. Continue to monitor blood sugars as they have been well controlled on metformin and sliding scale. Continue with Reglan scheduled to help her GI motility. Clinically improving. Will monitor patient today and be sure that he tolerates diet advancement. 10/06/17 - Hien Radiographically, it does appear that he has a significant high-grade partial small bowel obstruction. Clinically, however, he is tolerating a regular diet without difficulty and is having good output of his colostomy. At this time I would recommend that we continue to follow him more so from a clinical standpoint than that of a radiographic standpoint. If, tomorrow, he still remains without any onset of nausea or vomiting or recurrent abdominal pain, I would go ahead and discharge him to home. I would not be surprised, however, if in the future he would develop recurrent problems requiring readmission. Ultimately, it is my intuition that we may be "forced" to proceed with surgical intervention. I do feel, however, that surgery would be complicated given his prior history for radiation and abdominoperineal resection. At this time would not recommend surgical intervention unless he would have ongoing recurrent symptomatology as discussed above. 10/07/[address] Stanford. He examined the pt this afternoon and the pt complained of more abdominal pain. His abdomen is more distended and taut. He is going to proceed with surgery in the morning. 10/08/17 OP Day: Exploratory laparotomy with lysis of adhesions and creation of omental rotation flap patch Continue supportive post op care. Encourage IS for pulmonary toilet. Continue TPN until GI function improves. 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 10/09/17 POD #1 Blood sugars with elevation despite starting Levemir 8 units last night. Will give 5 units Levemir and increase evening dose to 12 units. Sugars with elevation due to TPN for nutritional support. NG tube clamped by Dr Stanford. Monitor for increased nausea/ab bloating. Encourage IS for pulmonary toilet. Will have nursing ambulate patient TID to help improve strength and promote bowel function. Transfer to surgical floor for continuation of care. 10/10/17 POD #2 PT consult to help improve strength and functional status. Encourage ambulation. Continue Levemir 12 units at night to help glycemic control. NG tube clamped by Dr Stanford. Monitor for increased nausea/ab bloating. Diet to advance as per Dr Stanford. Bladder retraining - likely discontinue Cash in near future. Encourage IS for pulmonary toilet. Blood pressure and heart rate stable on current dose of Toprol XL - 25mg at night. 10/11/17 POD #3 Encouraged pt to sit up in chair and work w/ therapy. NG tube removed today. Will DC Cash as well. Diet advanced to clear liquids per Dr Stanford. K 3.5 today - has potassium in IVF's and TPN. Increase Levemir from 12 to 15 U for elevated BS's. Continue SSI. 10/12/17 POD #4 Overall patient is improving. Continue to encourage therapy. Diet advanced to full liquids per surgery. Once he is eating better and bowel function is consistently adequate, anticipate DC TPN. Will stop D51/2NS with KCl as oral intake improving. Vital signs and labs are stable. Hemoglobin dropped just slightly from yesterday. Will continue to follow. Levemir was increased from 12-15 units last evening. Will continue sliding scale insulin and follow blood sugars. As oral intake increasing can restart metformin 500mg BID with meals. Will need to decrease Levemir once TPN stopped.
[2017-10-13] MEDS: ATORVASTATIN 40 MG TABLET PO SCH (20:08)
[2017-10-13] MEDS: MAGNESIUM OXIDE 400 MG TABLET PO SCH (20:08)
[2017-10-13] MEDS: TAMSULOSIN 0.4 MG CAPSULE PO SCH (20:09)
[2017-10-13] MEDS: MIRTAZAPINE 45 MG TABLET PO SCH (20:09)
[2017-10-13] MEDS: INSULIN DETEMIR 100unit/ml INJECTION SQ SCH (20:10)
[2017-10-14] MEDS ORDERED: PANTOPRAZOLE 40 MG TABLET PO SCH (06:30)
[2017-10-14] MEDS: METFORMIN 500 MG TABLET PO SCH (09:17)
[2017-10-14] MEDS: ASPIRIN 81 MG CHEWABLE TABLET PO SCH (09:17)
[2017-10-14] MEDS: CETIRIZINE 10 MG TABLET PO SCH (09:17)
[2017-10-14] MEDS: ENOXAPARIN 40 MG/0.4 ML INJECTION SQ SCH (09:17)
[2017-10-14] MEDS: MAGNESIUM OXIDE 400 MG TABLET PO SCH (09:18)
[2017-10-14] MEDS: FLUTICASONE NASAL SPRAY 50mcg EA NOSTRIL SCH (09:21)
[2017-10-14] MEDS: EUCERIN CREAM 57gm TP SCH (09:22)
[2017-10-14] MEDS: SERTRALINE 100 MG TABLET PO SCH (09:23)
[2017-10-14] MEDS: ACETAMINOPHEN 325 MG TABLET PO PRN (10:18)
--- NOTE | 2017-10-14 11:31 | Extended Care Facility Orders ---
<Lyndsay Montana V - Last Filed: 10/14/17 11:31> Admission Orders Admit to:: [facility] Allergies/Adverse Reactions: Allergies Iodinated Contrast- Oral and IV Dye Allergy (Unknown, Verified 10/01/17 14:00) Admitting Diagnosis: small bowel obstruction Admitting Physician: Lelo Mills MD Attending Physician: Lelo Mills MD Code Status: Full Code Anticiapted Length of Stay: 30 days or less Rehab Potential: good Rehab Prognosis: good Diet: 10/12/17 Breakfast Full Liquid Diet [DIET] Other Diet Modifiers: CALCOUNT 10/12/17 Dinner Regular Diet [DIET] Diet Modifications: May use Facility Protocol or Standing Orders: Yes May have flu vaccine: Yes [facility] Certification: I certify that SNF services are required to be given on an Inpatient basis because of the patients need for senior care care on a continuing basis for the condition(s) for which he/she received inpatient hospital services prior to his/her transfer to the SNF. SNF inpatient care is necessary for the following reasons Indication for [facility]: Other (PT,OT) - Additional Information In Event of Arrest: Start CPR,call 911,send patient to the ER Referrals: Dutch Stanford MD [Physician] - 10/25/17 9:30 am (Wound Clinic for buttock wound care.) Bere Alonzo APRN [Advanced Practice Nurse] - 10/25/17 10:30 am (post op staple removal (if not done while in the wound clinic 1st)) Baudilio Rosa MD [Primary Care Provider] - (Schedule follow up for 1 week. Check CBC and BMP at that time) <Lelo Mills - Last Filed: 10/14/17 11:51> Admission Orders Admitting Diagnosis: small bowel obstruction Admitting Physician: Lelo Mills MD Attending Physician: Lelo Mills MD Code Status: Full Code Diet: 10/12/17 Breakfast Full Liquid Diet [DIET] Other Diet Modifiers: CALCOUNT 10/12/17 Dinner Regular Diet [DIET] Diet Modifications: [facility] Certification: I certify that SNF services are required to be given on an Inpatient basis because of the patients need for senior care care on a continuing basis for the condition(s) for which he/she received inpatient hospital services prior to his/her transfer to the SNF. SNF inpatient care is necessary for the following reasons
[2017-10-14 11:46] VITALS: BP 118/69; PULSE 79; RESP 18; TEMP 97.6; O2SAT 93
[2017-10-14] MEDS: FERROUS SULFATE 324 MG TABLET PO SCH (12:29)
[2017-10-14] MEDS: SALINE FLUSH 10ml SYRINGE IVF PRN (14:26)
--- NOTE | 2017-10-14 15:23 | Discharge Summary ---
Discharge Information Date of admission: 10/01/17 15:27 Anticipated date of discharge: 10/14/17 Attending Physician: Lelo Mills MD Primary care physician: Baudilio Rosa MD Consults: 10/01/17 17:06 Physician Consult [CONS] Routine Consulting Provider: Dutch Stanford Reason For Exam: SBO Ordering Provider has Notified Spacer Type Bar And Segment: Yes 10/01/17 21:11 [facility] Consult [CONS] Routine - Discharge Diagnosis (1) Small bowel obstruction Status: Acute Small bowel objection status post exploratory laparotomy with licenses of adhesions and creation of omental rotation flap patch. Dehydration history of rectal cancer under the care of Dr. Dueñas are currently on every two -week high negative chemotherapy diabetes type II hypertension dyslipidemia chronic venous stasis chronic buttock wound neutropenia hypo madness anemia hypokalemia - Procedures Procedures: 10/13/17 Exploratory laparotomy with lysis of adhesions and creation of omental rotations flap patch - Laboratory Labs: 10/14/17 04:25 10/14/17 04:25 - Radiology Radiology: 10/01/17: abdominal/pelvic CT: Impression: 1. Severe distal small bowel obstruction with transition point in the pelvis. This could be due to adhesions from prior therapy for the patient's prior colon cancer. Surgical consultation is recommended. 2. Nephrolithiasis with possible nonobstructing right UVJ stones and bladder stones. 3. Trace pleural effusions. 10/01/17: x-ray abdomen 1 view: left basilar atelectasis. Dilated colon seen in upper abdomen 10/02/17: XR KUB: stable appearance of the nasogastric tube with continued evidence of high grade or complete small bowel obstruction 10/03/17: XR small bowel follow through:Impression: Delayed transit of oral contrast the small bowel loops eventually reaching the colon at the 3.5 to 4.5 hour interval. Significantly dilated small bowel loops are again demonstrated. Differential considerations include partial small bowel obstruction versus generalized ileus and continued close follow-up is recommended. 10/04/17: XR abdomen 2V: Impression: Continued evidence of a high-grade partial small bowel obstruction 10/06/17: KUB: Impression: Slight worsening in generalized distention of small bowel again suggests a high-grade partial obstruction. History of Present Illness HPI: Patient is a 67-year-old who presented to the emergency room from [facility] in [place] for vomiting fecal-like material and abdominal pain which started last evening. He has rectal cancer and has had robotic-assisted A/ P resection and colostomy by Dr. Stanford in 2016. Patient states he was in the hospital in [place] September 28 and was dismissed yesterday morning feeling okay. Abdominal pain and nausea and vomiting didn't start until later in the day. In talking with patient's PCP, patient was seen initially in the ER on September 26 with dizziness and other vague symptoms. UA was positive for UTI, although patient didn't have any urinary symptoms. He was started on Cipro. He returned to the clinic on the still not feeling well and complaining of vague symptoms including dizziness; he was thus hospitalized for IV fluids and further observation. He did complete the full course of Cipro for possible UTI. There were no significant events during his hospital stay. CT scan in the ER revealed high-grade small bowel obstruction. NG tube was placed with drainage of 850 cc's gastric fluid. By the time I saw the patient in his room on the surgical unit, he was completely pain-free and had no complaints. Dr. Tate was notified and agrees to consult. Objective Vital signs: Temperature 97.6 F 10/14/17 11:00 Pulse Rate 79 10/14/17 11:00 Respiratory Rate 18 10/14/17 11:00 Blood Pressure 118/69 10/14/17 11:00 Pulse Oximetry 93 10/14/17 11:00 Rhythm: Normal Sinus Rhythm, Third Degree AV Block Height/Weight/BMI: Height 1.88 m Weight 94.3 kg Body Mass Index 27.3 Comments: Gen: alert and oriented. NAD Skin: warm and dry HEENT: NC/AT PERRL, EOMI, Sclera, lids and conjunctiva wnl, MMM, OP clear Neck: supple. No JVD, Carotids 2+ without bruits. Lungs: clear, No rales, rhonchi, wheezes. CV: regular. No murmur, rub or gallop Abd: soft. NT/ND, +BS, Ostomy with air and stool. MS: No edema. Good strength and ROM. Neuro: No focal deficit Psy: normal mood and affect Hospital Course This is a general summary of the patient's hospital course. For more details refer to the complete medical record. Hospital course: 10/01/17 - Hospital admission Admit, observation for SBO NG tube placed in ER with drainage of 850cc's gastric fluid Morphine IV PRN pain, Zofran IV PRN nausea NPO, pantoprazole IV daily; replace magnesium Tele (had a brief run of PAT during recent hosp stay) Hold all home medications Surgical consult placed SCD's for DVT prophylaxis Code staus - full code Care to return to Dr. Rsoa on dismissal. 10/02/17 Continue NGT. RN to confirm placement. Assess KUB once NGT advanced. Surgery consulted- high grade bowel obstruction. Continue IVF, will add potassium as it is trending down. Magnesium replaced, normalized. BG is controlled with insulin held. Recent PAT- on metoprolol succinate for rate control. Continue to monitor blood counts closely- neutropenia, mild anemia. Follow labs closely. Pain is minimal. 10/03/17 Continue NGT/NPO. Continues to have fairly large amount of gastric drainage, but he had large BM this morning. Awaiting Dr. Stanford's recommendations -- anticipate conservative management. WBC up to 4.3. Hgb decreased to 10.3, but suspect this drop is heavily dilutional. K is still 3.5 - continue IVF with KCl. Mg decreased to 1.5 and IV bolus has been ordered. 10/04/17 Had large and copious results from Gastrografin small bowel follow through, abd soft, non-tender, denies nausea. Will discuss with Dr. Stanford. 10/05/[address] Espino surgical consultation. Tolerating liquid diet- Will advance as tolerated. He is having good stool output ostomy. Mild Hypokalemia today- replace orally. Continue to monitor blood sugars as they have been well controlled on metformin and sliding scale. Continue with Reglan scheduled to help her GI motility. Clinically improving. Will monitor patient today and be sure that he tolerates diet advancement. 10/06/17 - Hien Radiographically, it does appear that he has a significant high-grade partial small bowel obstruction. Clinically, however, he is tolerating a regular diet without difficulty and is having good output of his colostomy. At this time I would recommend that we continue to follow him more so from a clinical standpoint than that of a radiographic standpoint. If, tomorrow, he still remains without any onset of nausea or vomiting or recurrent abdominal pain, I would go ahead and discharge him to home. I would not be surprised, however, if in the future he would develop recurrent problems requiring readmission. Ultimately, it is my intuition that we may be "forced" to proceed with surgical intervention. I do feel, however, that surgery would be complicated given his prior history for radiation and abdominoperineal resection. At this time would not recommend surgical intervention unless he would have ongoing recurrent symptomatology as discussed above. 10/07/[address] Stanford. He examined the pt this afternoon and the pt complained of more abdominal pain. His abdomen is more distended and taut. He is going to proceed with surgery in the morning. 10/08/17 OP Day: Exploratory laparotomy with lysis of adhesions and creation of omental rotation flap patch Continue supportive post op care. Encourage IS for pulmonary toilet. Continue TPN until GI function improves. Pain control with [employer]. 10/09/17 POD #1 Blood sugars with elevation despite starting Levemir 8 units last night. Will give 5 units Levemir and increase evening dose to 12 units. Sugars with elevation due to TPN for nutritional support. NG tube clamped by Dr Stanford. Monitor for increased nausea/ab bloating. Encourage IS for pulmonary toilet. Will have nursing ambulate patient TID to help improve strength and promote bowel function. Transfer to surgical floor for continuation of care. 10/10/17 POD #2 PT consult to help improve strength and functional status. Encourage ambulation. Continue Levemir 12 units at night to help glycemic control. NG tube clamped by Dr Stanford. Monitor for increased nausea/ab bloating. Diet to advance as per Dr Stanford. Bladder retraining - likely discontinue Cash in near future. Encourage IS for pulmonary toilet. Blood pressure and heart rate stable on current dose of Toprol XL - 25mg at night. 10/11/17 POD #3 Encouraged pt to sit up in chair and work w/ therapy. NG tube removed today. Will DC Cash as well. Diet advanced to clear liquids per Dr Stanford. K 3.5 today - has potassium in IVF's and TPN. Increase Levemir from 12 to 15 U for elevated BS's. Continue SSI. 10/12/17 POD #4 Overall patient is improving. Continue to encourage therapy. Diet advanced to full liquids per surgery. Once he is eating better and bowel function is consistently adequate, anticipate DC TPN. Will stop D51/2NS with KCl as oral intake improving. Vital signs and labs are stable. Hemoglobin dropped just slightly from yesterday. Will continue to follow. Levemir was increased from 12-15 units last evening. Will continue sliding scale insulin and follow blood sugars. As oral intake increasing can restart metformin 500mg BID with meals. Will need to decrease Levemir once TPN stopped. 10/13/17 POD #5 Overall patient continues to improve. His diet was advanced to regular and he tolerated that pretty well. Surgery was okay with him being discharge today however I wanted to keep him another day to manage his diabetes. 10/14/17 POD #6 patient continues to do very well. He's ready to be discharged. We will decrease his long-acting insulin back to his normal home dose. He is feeling so much better than he was and was felt to be stable for discharge back to his snf in the detention unit. Time spent with patient: 25 - 35 minutes Resuscitation Status: Full Code Discharge Plan - Discharge Disposition Discharge Date: 10/13/17 Disposition: 03 To U Not [facility] (SNF) *Condition: Stable Reason For Visit (Visit label in EMR): small bowel obstruction - Discharge Medications *Discharge Medications: New Magnesium Oxide [Magox] 400 mg PO BID tab Pantoprazole Tab [Protonix Tab] 40 mg PO ACB tab Acetaminophen Supp [Tylenol Supp] 650 mg PA Q5H PRN suppositor PRN Reason: Pain Metoprolol Succinate (XL) [Toprol Xl] 25 mg PO HS tab Continue Fluticasone Propionate [Flonase Allergy Relief] 2 spray EA NOSTRIL BID #0 Ferrous Sulfate [Iron] 325 mg PO BIDWM #0 Glucagon,Human Recombinant [Glucagon Emergency Kit] 1 mg INJ PRN PRN #0 PRN Reason: Prn Orders guaiFENesin [Mucinex] 600 mg PO BID PRN PRN Reason: Congestion Triamcinolone 0.1% Cream 15 G [Kenalog] 1 applicatio TOP BID Benzonatate 100 mg PO TID PRN PRN Reason: Cough Magnesium 500 mg PO QID Multivitamin [One Daily] 1 tab PO DAILY Oxybutynin XL [Ditropan Xl] 5 mg PO HS Mirtazapine [Remeron] 45 mg PO HS Tamsulosin [Flomax] 0.4 mg PO DAILY Sertraline [Zoloft] 100 mg PO DAILY Nystatin [Nystop] 1 applicatio TOP BID Metformin [Glucophage] 500 mg PO BIDWM Cetirizine [Zyrtec] 10 mg PO DAILY Aspirin 81 mg PO DAILY Ondansetron HCl [Zofran] 4 mg PO Q6H PRN PRN Reason: Nausea CALCIUM CARBONATE Chewable [Tums] 1,000 mg PO Q4H PRN PRN Reason: Indigestion Eucerin Cream [Eucerin] 1 applicatio TP DAILY Hydrocodone/APAP 5/325 [[place] 5/325] 1 tab PO Q5H PRN #20 tab PRN Reason: Pain Atorvastatin Calcium 40 mg PO HS #0 Mag Hydrox/Aluminum Hyd/Simeth [Alum-Mag Hydroxide-Simeth Liq] 30 ml PO PRN PRN PRN Reason: Indigestion Insulin Detemir [Levemir] 8 unit SQ HS Discontinued Famotidine [Pepcid] 20 mg PO BID #0 Metoprolol Tartrate [Lopressor] 25 mg PO BIDWM Ciprofloxacin HCl [Cipro] 500 mg PO BID Doxycycline Monohydrate 100 mg PO BID - Discharge Packet/Instructions *Diet: As tolerated. *Activity: Do not drive, operate machinery for 24 hours after surgery or while taking pain medication. Do not lift more than 25 lbs through November 05, 2017 *Pain Management/Treatment: Follow prescriptions as prescribed *Wound Care: May leave incision open to air or cover lightly with gauze. May shower. Do not let a wet dressing remain on the incision. Additional Instructions: Continue to monitor blood sugars and resume home insulin as ordered *Expected Signs/Symptoms: Fatigue for several weeks. *Notify Physician if: 1. Call your surgeon if you are having problems relating to your surgery at [phone]. 2. Problems such as: Temp above 101.5 degrees. You develop redness, excessive swelling of the incision, increasing pain or excessive foul smelling drainage. 3. If the office is closed, call [facility] at [phone] and have your Surgeon paged. *During Business Hours Contact: Call your surgeon at at [phone]. *After Business Hours Contact: If the office is closed, call [facility] at [phone] and have your Surgeon paged. *Pending Lab/Results: No Pending Lab - Referrals/Follow Up *Referrals/Follow Up: Dutch Stanford MD [Physician] - 10/25/17 9:30 am (Wound Clinic for buttock wound care.) Baudilio Rosa MD [Primary Care Provider] - (Schedule follow up for 1 week. Check CBC and BMP at that time) Bere Alonzo APRN [Advanced Practice Nurse] - 10/25/17 10:30 am (post op staple removal (if not done while in the wound clinic 1st)) - Patient Handouts Patient Handouts: Bowel Obstruction (DC) - Dismissal Complete Discharge Instructions are:: Complete Physician Narrative - Narrative Attestation Narrative: Date: 10/14/17 Time: [id number]
== END 2017-10-14 15:22 | DRG 335 ==
LOC: ED 13:47 → SUATTDRO 15:27 → SRG 15:27 → CCU 10-08 08:48 → SRG 10-09 11:54
PROVIDERS: ADMIT Internal Medicine; ATTEND Internal Medicine Cardiovascular Disease